=== PATIENT | male | born 1975 | race African-American/Black ===

== ENCOUNTER 2020-07-06 10:58 | Inpatient (IN) | payer OTHER, SELFPAY ==
[2020-07-06 11:19] VITALS: BP 110/69; BP 130/86; PULSE 60; RESP 16; TEMP 36.7; O2SAT 96; BMI 32.8
--- NOTE | 2020-07-06 12:01 | ED.PSYCH ---
HPI - Psych General Chief Complaint: Psychiatric Symptoms Stated Complaint: SI WITH A PLAN, VOLUNTARY,CALM AND COOPERATIVE Time Seen by Provider: 07/06/20 11:30 Source: EMS Mode of arrival: EMS Limitations: no limitations History of Present Illness HPI Narrative: Per EMS the patient has been making suicidal statements, recent dc [place] [facility] [place]. Patient denies Si/HI. Is feeling depressed but not worsened from baseline. Has upcoming appt 07/13 with a psychiatrist. No therapist, Takes seroquel at nighttime for sleep. Pt denies substance use. Denies physical complaints. MD complaint: feels depressed Onset (ago): day(s) Duration: constant History of same: Yes Relieving factors: none Exacerbating factors: none Associated symptoms: denies other symptoms Treatments prior to arrival: none Related Data Allergies Allergy/AdvReac Type Severity Reaction Status Date / Time No Known Allergies Allergy Verified 07/06/20 11:18 [No Known Allergies*] none Allergy Unknown Unknown Uncoded 07/06/20 11:18 Review of Systems Review of Systems: Yes all other systems are reviewed and are negative Constitutional: Constitutional: Reports no additional constitutional complaints, Denies body ache(s), Denies chills, Denies fever(s), Denies headache(s) and Denies weakness Eyes: Eyes: Reports no additional eye complaints and Denies change in vision ENT: Reports system reviewed and no additional complaints, except as documented, Denies dizziness, Denies headache(s), Denies nasal congestion, Denies nasal discharge and Denies neck pain Cardiovascular: Cardiovascular: Reports no additional cardiovascular complaints, Denies chest pain, Denies leg edema and Denies dyspnea Respiratory: Respiratory: Reports no additional respiratory complaints, Denies cough and Denies dyspnea Gastrointestinal: Gastrointestinal: Reports no additional gastrointestinal complaints, Denies abdominal pain, Denies diarrhea, Denies nausea and Denies vomiting Genitourinary: Genitourinary: Denies urinary incontinence Musculoskeletal: Musculoskeletal: Reports no additional musculoskeletal complaints, Denies back pain, Denies arthralgias, Denies joint swelling, Denies neck pain, Denies numbness and Denies tingling Integumentary/Breasts: Skin/Breast: Reports system reviewed and no additional complaints, except as docu and Denies rash Neurologic: Reports system reviewed and no additional complaints, except as documented, Denies Abnormal speech present, Denies dizziness, Denies headache(s), Denies numbness, Denies tingling and Denies weakness Psychiatric: Psychiatric: Denies anxiety, Reports depression, Denies auditory hallucinations, Denies visual hallucinations, Denies hallucinations, Denies homicidal ideation and Denies suicidal ideation [facility] Past Medical History Attestation statement: The following information was validated with the patient. Source: obtained from family and nursing notes reviewed Medical History Difficulty sleeping Suicide attempt Social History Social History Advance Directives: No Advance Directives Information Provided: Yes Physical Exam Vital Signs: Vital Signs: Last Vital Signs Temp 97.6 F 07/06/20 15:10 Pulse 64 07/06/20 15:10 Resp 18 07/06/20 15:10 BP 109/61 07/06/20 15:10 Pulse Ox 97 07/06/20 15:10 Body Mass Index 32.8 Const: General: cooperative, healthy appearing, comfortable and no acute distress Orientation/consciousness: patient oriented x3 Limitations: no limitations HENMT: Head: Yes normal to inspection Ears: hearing grossly normal bilaterally General nose exam: Normal external nose present Face and sinus: Yes normal facial exam Mouth: Normal oral and palatal mucosa present Throat: Yes posterior oropharynx normal Eyes: General: appearance normal, both eyes and all related structures Pupils: Equal, round and reactive pupils present Neck: Neck: Yes normal visual inspection Chest: Chest palpation & inspection: normal inspection of the chest Resp: Effort & Inspection: normal respiratory effort Auscultation: clear to auscultation bilaterally Cardio: Rate: regular rate Rhythm: regular rhythm Peripheral pulses: Peripheral pulses 2+ throughout GI: Inspection: Yes normal to inspection Palpation (GI): Soft to palpation and nontender Auscultation: normal bowel sounds Back/Spine/Pelvis: Thoracic/Lumbar Spine: thoracic and lumbar spine normal to inspection Skin: General skin exam: no rashes or lesions noted Neuro: General: patient oriented x3, no focal motor deficits and normal sensation to monofilament Cranial nerves: Yes Equal, round and reactive pupils present Cognition (Neuro): normal cognition Speech: No Abnormal speech present Gait exam (Neuro): Normal gait present Motor exam (neuro): 5/5 motor strength present throughout Extrem: General: Yes normal to inspection Course Course Course Narrative: Pt denies SI, HI, hallucinations. C/o some depression Related to his father's . Very vague historian and not providing much information. Most of the patients history described by the . Call out to her to discuss. 1230- Called and spoke to patient's with steward/stewardess tourist class. She does know he was released from [facility] 3 days ago after attempting to kill himself with bleach by drinking it. She tells me so with tonight he was released he bought some fabuloso nd drink several sips of this. She is unsure if he drink more. She tells me that night he was also drinking alcohol and using cocaine. She does admit he has been drinking Carla since being released daily and using cocaine daily. She tells me he has been telling her that he is feeling suicidal every morning and that he wants to jump off the roof of the house to kill himself. Plan to obtain records from [facility]. Check labs, EKG and drug screen. Obtain BHN consult. 1600-Labs reviewed. Drug screen reviewed. Section 12 signed and placed on chart. No concern for acute ingestion or trauma today. Plan for BHN evaluation. 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 Placed in chart, 1700-Sign out to Saleem GARY pending eval. MDM - Psych Restraints Face to Face Assessment: Face to Face Assessment: Current Situation: After assessment of the patient, a review of the pertinent medical record and a discussion with nursing staff, I feel the patient requires a restrain intervention. Reaction To: [] Medical Condition: [] Behavioral State: [] Continued Need: [] Medical Records Attestation: I reviewed the patient's medical records. Lab Data Attestation: I reviewed the patient's lab results. Result diagrams: 07/06/20 13:05 07/06/20 13:05 Labs: Lab Results 07/06/20 07/06/20 07/06/20 Range/Units 13:05 13:05 13:05 WBC 10.7 (4.8-10.8) X10*3/uL RBC 4.74 (4.60-5.80) X10*6/uL Hgb 14.4 (14.0-18.0) g/dl Hct 43.0 (42-52) % MCV 90.7 (80-98) fL MCH 30.4 (27.0-33.0) pg MCHC 33.5 (31.0-36.0) g/dl RDW 13.4 (11.0-16.0) % Plt Count 264 (160-400) X10*3/uL MPV 9.0 L (9.4-12.4) fL Immature Gran % (Auto) 0.2 (0.0-0.4) % Neut % (Auto) 56.1 (45-73) % Lymph % (Auto) 22.7 (20-40) % [place] % (Auto) 10.6 (2-11) % Eos % (Auto) 9.7 H (0-4) % Baso % (Auto) 0.7 (0-2) % Lymph # (Auto) 2.4 (1.2-4.9) X10*3/uL [place] # (Auto) 1.1 (0.1-1.2) X10*3/uL Eos # (Auto) 1.0 H (0.0-0.4) X10*3/uL Baso # (Auto) 0.1 (0.0-0.2) X10*3/uL Abs Immat Gran (auto) 0.02 (0.00-0.03) X10*3/uL Absolute Neuts (auto) 6.0 (2.0-8.3) X10*3/uL Absolute Nucleated RBC 0.000 (0.0-0.012) X10*3/uL Nucleated RBC % (auto) 0.0 (0.0-0.2) /100WBC Sodium 139 (135-145) mmol/L Potassium 3.8 (3.3-5.1) mmol/l Chloride 107 (96-108) mmol/L Carbon Dioxide 25 (22-29) mmol/L Anion Gap 11 L (12-20) BUN 13 (9-16) mg/dL Creatinine 1.27 (0.5-1.4) mg/dL Estim Creat Clear Calc 95.0 Estimated GFR > 60 Random Glucose 112 (60-115) mg/dL Calcium 8.4 (8.4-10.2) mg/dL Magnesium 2.2 (1.6-2.6) mg/dL Total Bilirubin 0.5 (0.0-1.0) mg/dL Direct Bilirubin 0.2 (0.0-0.5) mg/dL AST 14 (5-37) U/L ALT 12 (0-40) U/L Alkaline Phosphatase 54 (39-117) U/L Total Protein 6.4 L (6.5-8.0) g/dL Albumin 3.8 (3.5-5.0) g/dL Urine Color Urine Appearance Urine pH (5.0-8.0) Ur Specific [place] (1.005-1.025) Urine Protein (NEG-TRACE) MG/DL Urine Glucose (UA) (NEG) MG/DL Urine Ketones (NEG) MG/DL Urine Blood (NEG) Urine Nitrite (NEG) Ur Leukocyte Esterase (NEG) Urine RBC (0) /HPF Urine WBC (0-4) /HPF Ur Squamous Epith Cells /LPF Urine Bacteria /LPF Hyaline Casts /LPF Salicylates < 5.0 L (15-30) mg/dL Urine Opiates Screen (Not Detect) Acetaminophen < 1 (<30) mcg/mL Ur Barbiturates Screen (Not Detect) Ur Phencyclidine Scrn (Not Detect) Ur Amphetamines Screen (Not Detect) U Benzodiazepines Scrn (Not Detect) Urine Cocaine Screen (Not Detect) U Marijuana (THC) Screen (Not Detect) Ethyl Alcohol mg/dL 07/06/20 07/06/20 07/06/20 Range/Units 13:05 15:06 15:06 WBC (4.8-10.8) X10*3/uL RBC (4.60-5.80) X10*6/uL Hgb (14.0-18.0) g/dl Hct (42-52) % MCV (80-98) fL MCH (27.0-33.0) pg MCHC (31.0-36.0) g/dl RDW (11.0-16.0) % Plt Count (160-400) X10*3/uL MPV (9.4-12.4) fL Immature Gran % (Auto) (0.0-0.4) % Neut % (Auto) (45-73) % Lymph % (Auto) (20-40) % [place] % (Auto) (2-11) % Eos % (Auto) (0-4) % Baso % (Auto) (0-2) % Lymph # (Auto) (1.2-4.9) X10*3/uL [place] # (Auto) (0.1-1.2) X10*3/uL Eos # (Auto) (0.0-0.4) X10*3/uL Baso # (Auto) (0.0-0.2) X10*3/uL Abs Immat Gran (auto) (0.00-0.03) X10*3/uL Absolute Neuts (auto) (2.0-8.3) X10*3/uL Absolute Nucleated RBC (0.0-0.012) X10*3/uL Nucleated RBC % (auto) (0.0-0.2) /100WBC Sodium (135-145) mmol/L Potassium (3.3-5.1) mmol/l Chloride (96-108) mmol/L Carbon Dioxide (22-29) mmol/L Anion Gap (12-20) BUN (9-16) mg/dL Creatinine (0.5-1.4) mg/dL Estim Creat Clear Calc Estimated GFR Random Glucose (60-115) mg/dL Calcium (8.4-10.2) mg/dL Magnesium (1.6-2.6) mg/dL Total Bilirubin (0.0-1.0) mg/dL Direct Bilirubin (0.0-0.5) mg/dL AST (5-37) U/L ALT (0-40) U/L Alkaline Phosphatase (39-117) U/L Total Protein (6.5-8.0) g/dL Albumin (3.5-5.0) g/dL Urine Color YELLOW Urine Appearance CLEAR Urine pH 6.0 (5.0-8.0) Ur Specific [place] >= 1.030 H (1.005-1.025) Urine Protein NEG (NEG-TRACE) MG/DL Urine Glucose (UA) NEG (NEG) MG/DL Urine Ketones 5 (NEG) MG/DL Urine Blood NEG (NEG) Urine Nitrite NEG (NEG) Ur Leukocyte Esterase TRACE H (NEG) Urine RBC 0-2 (0) /HPF Urine WBC 5-9 H (0-4) /HPF Ur Squamous Epith Cells 1+ /LPF Urine Bacteria NONE /LPF Hyaline Casts 0-2 /LPF Salicylates (15-30) mg/dL Urine Opiates Screen Not Detected (Not Detect) Acetaminophen (<30) mcg/mL Ur Barbiturates Screen Not Detected (Not Detect) Ur Phencyclidine Scrn Not Detected (Not Detect) Ur Amphetamines Screen Not Detected (Not Detect) U Benzodiazepines Scrn POSITIVE H (Not Detect) Urine Cocaine Screen POSITIVE H (Not Detect) U Marijuana (THC) Screen Not Detected (Not Detect) Ethyl Alcohol < 10 mg/dL ECG Data Attestation: I personally reviewed and interpreted this ECG as follows: ECG interpretation date: 07/06/20 ECG interpretation time: 12:42 Interpretation: sinus bradycardia with a rate of 46, normal KS, normal QRS, QTC mildly prolonged at 447. Uncganged from previous Discharge Plan Discharge Clinical Impression: Polysubstance abuse, Suicidal ideation, Depression
--- NOTE | 2020-07-06 12:20 | ECG_ITS ---
Test Reason : PYCH Blood Pressure : / mmHG Vent. Rate : 056 BPM Atrial Rate : 056 BPM P-R Int : 192 ms QRS Dur : 096 ms QT Int : 464 ms P-R-T Axes : 023 072 077 degrees QTc Int : 447 ms Sinus bradycardia with Sinus Arrhythmia Intra-ventricular conduction delay Nonspecific T wave abnormality Abnormal ECG When compared with ECG of 25-MAR-2020 18:05, No significant change was found Referred By: Christine Beyer Electronically Signed By:MARY LONDON MD
[2020-07-06 13:08] LABS: MANUAL DIFF FLAG NO
[2020-07-06 13:14] LABS: Basophils Absolute Auto 0.1 X10*3/uL (0.0-0.2); Basophils Percent Auto 0.7 % (0-2); Eosinophils Percent Auto 9.7 % (0-4); Hemoglobin 14.4 g/dl (14.0-18.0); Imm Gran Abs Auto 0.02 X10*3/uL (0.00-0.03); Imm Gran Pct Auto 0.2 % (0.0-0.4); Lymphocytes Absolute Auto 2.4 X10*3/uL (1.2-4.9); Lymphocytes Percent Auto 22.7 % (20-40); Mean Corpuscular HGB Conc 33.5 g/dl (31.0-36.0); Mean Corpuscular Hemoglobin 30.4 pg (27.0-33.0); Mean Corpuscular Volume 90.7 fL (80-98); Monocytes Absolute Auto 1.1 X10*3/uL (0.1-1.2); Monocytes Percent Auto 10.6 % (2-11); Neutrophils Percent Auto 56.1 % (45-73); Platelet Count 264 X10*3/uL (160-400); Red Blood Count 4.74 X10*6/uL (4.60-5.80); Red Cell Distribution Width 13.4 % (11.0-16.0); White Blood Count 10.7 X10*3/uL (4.8-10.8)
[2020-07-06 13:41] LABS: Ethanol < 10 mg/dL
[2020-07-06 13:45] LABS: Acetaminophen LAB < 1 mcg/mL (<30); Alanine Aminotransferase 12 U/L (0-40); Albumin Level 3.8 g/dL (3.5-5.0); Alkaline Phosphatase 54 U/L (39-117); Anion Gap 11 (12-20); Aspartate Amino Transferase 14 U/L (5-37); Bilirubin Direct 0.2 mg/dL (0.0-0.5); Bilirubin Total 0.5 mg/dL (0.0-1.0); Blood Urea Nitrogen 13 mg/dL (9-16); Calcium 8.4 mg/dL (8.4-10.2); Carbon Dioxide 25 mmol/L (22-29); Chloride 107 mmol/L (96-108); Estimated Glomerular Filt Rate > 60; Glucose Random 112 mg/dL (60-115); Magnesium 2.2 mg/dL (1.6-2.6); Potassium 3.8 mmol/l (3.3-5.1); Salicylate < 5.0 mg/dL (15-30); Sodium 139 mmol/L (135-145); Total Protein 6.4 g/dL (6.5-8.0)
[2020-07-06] MEDS: LORazepam 1 MG TABLET 2 MG PO (14:52)
--- NOTE | 2020-07-06 14:53 | PC.NURSE ---
lat entry aprox 15 mins ago pt was upset on phone, slamming the table. was descalated verbally and now willing to take meds. pt wanted to leave [facility] and was told he couldn't
[2020-07-06 15:10] VITALS: BP 109/61; PULSE 64; RESP 18; TEMP 36.4; O2SAT 97
[2020-07-06 15:13] LABS: Glucose Urine UA NEG (NEG); Leukocyte Esterase Urine TRACE (NEG); Nitrite Urine NEG (NEG); Specific Gravity - Urine >= 1.030 (1.005-1.025); Urine Blood NEG (NEG); Urine Ketones 5 MG/DL (NEG); Urine Protein NEG (NEG-TRACE)
[2020-07-06 15:14] LABS: Appearance Urine CLEAR; Color Urine YELLOW
[2020-07-06 15:21] LABS: Hyaline Casts Urine 0-2 /LPF; RBC Urine 0-2 /HPF (0); Squamous Epithelial Cell Urine 1+ /LPF
[2020-07-06 15:39] LABS: Amphetamine Screen Urine Not Detected (Not Detect); Barbiturates, Urine Not Detected (Not Detect); Benzodiazepines Screen Urine POSITIVE (Not Detect); Cannabinoid Screen Urine Not Detected (Not Detect); Cocaine Screen Urine POSITIVE (Not Detect); Opiate Screen Urine Not Detected (Not Detect); Phencyclidine Screen Urine Not Detected (Not Detect)
--- NOTE | 2020-07-06 15:40 | PC.NURSE ---
sleeping. skin pwd. no resp depression. sitter remains outside of curtain.
--- NOTE | 2020-07-06 16:58 | PC.NURSE ---
continues to sleep
--- NOTE | 2020-07-06 16:58 | PC.NURSE ---
's number: [phone]
--- NOTE | 2020-07-06 17:19 | PC.NURSE ---
[facility] has fax. they have no idea when crisis eval with occur. may be on overnight.
--- NOTE | 2020-07-06 18:53 | PC.NURSE ---
[facility] present in ed to interview patient.
[2020-07-06 19:02] VITALS: BP 111/59; PULSE 61; RESP 18; O2SAT 96
--- NOTE | 2020-07-06 19:05 | PC.NURSE ---
rn to rn with kezia in the pod. pt woken then ambulatory to pod w/o diff. security present.
[2020-07-06 23:47] VITALS: RESP 18
[2020-07-07 06:00] VITALS: BP 122/71; PULSE 60; RESP 18; TEMP 36.4; O2SAT 96
--- NOTE | 2020-07-07 07:05 | PC.NURSE ---
Report recieved. Pt currently resting, denies complaints. Pt is inpatient bedsearch.
[2020-07-07 09:03] VITALS: RESP 18
[2020-07-07 10:20] LABS: COVID-19 Test Negative (Negative)
[2020-07-07] MEDS: Omeprazole 40 MG CAPSULE.DR PO (10:53)
[2020-07-07] MEDS: polyethylene glycoL 3350 17 GM POWD.PACK PO (10:53)
[2020-07-07] MEDS: hydrOXYzine HCL 50 MG TABLET PO (12:08)
--- NOTE | 2020-07-07 19:24 | PC.NURSE ---
Report received. PT pacing around the unit. Waiting to be transferred to .
[2020-07-07] MEDS: LORazepam 1 MG TABLET PO (21:33)
[2020-07-07] MEDS: hydrOXYzine HCL 25 MG TABLET PO (22:05)
--- NOTE | 2020-07-07 23:03 | PC.NURSE ---
PT SIGNED A 3-DAY NOTICE 07/07/2020, WILL BE UP ON 07/13
--- NOTE | 2020-07-07 23:04 | PC.ADMIT ---
Pt is a 45 year old male who is known to . Recently, discharged from [facility] 3 days ago. He was brought into [facility] due to concerns from his daughter about his safety and reported that he stated he wanted to jump from a balcony. Although reported SI he denies that he has any SI/HI/AH/VH. Patients ex reported that he had drank clorox and had been taking prescribed medications that was not his. Pt tested positive for cocaine and benzodiazepines. Pt stated I am fine, I don't know what it was I drank one night a couple of beers and other stuff and then next thing I know I have people banging on my door and I'm here....it was really weird . Has medical problems: Brugada syndrome, cardiac arrest, asthma, chronic pain and bowel issues noted. Pt uses humor as a coping skill and seems to be covering up how he is truly feeling. When asking about suicidally he would pause and look at the ground instead of making usual eye-contact- responses would be short No I'm good. . Pt is adamant about leaving. Pt reported that he has not been on any medications in a long time however, he just came from [facility]. Medications were ordered and obtained by Marisela Caballero. Concerns with certain medications that may affect heart. Signed a 3 day notice 07/07/2020, up on 07/13. Placed on 15 minute checks.
--- NOTE | 2020-07-08 | ECG_ITS ---
Test Reason : CHECK QTC Blood Pressure : / mmHG Vent. Rate : 064 BPM Atrial Rate : 064 BPM P-R Int : 172 ms QRS Dur : 112 ms QT Int : 398 ms P-R-T Axes : 029 074 070 degrees QTc Int : 410 ms Normal sinus rhythm Normal ECG When compared with ECG of 06-JUL-2020 12:42, Nonspecific ST and T wave abnormality has improved Referred By: Buck Travis Electronically Signed By:MARY LONDON MD
--- NOTE | 2020-07-08 04:26 | HO.PSYADMNOT ---
HPI Chief Complaint: Bi Polar Sources of Information: patient interviewed, chart reviewed and crisis/core team assessment reviewed Additional Sources of Information: Past [facility] [place] HPI Narrative: Pt brought to [facility] ED after his daughter called stating he was suicidal and drinking cleaning fluids after DC from [facility] 3 days ago. Threatened to jump off height. Recent DC from [facility] after Clorox ingestion. Pt known to [facility] w X similar presentations ppted by relationship conflict and impulsive DSH. Hx impiulsivity and substance use mainly Cocaine. Hx PTSD related to Childhood ACEs.. Denies SI today. Says was mad at him and prompted D in CT to call surgical instrument mechanic. I was sleeping when they knocked . Past Psychiatric History: X hospitalizations: [facility]. States starting program at [facility] Quality of Life Medical Evaluation Reviewed: Yes No CP/SOB [facility] Medical History Difficulty sleeping Suicide attempt Family History: None Social History: , frequent friction, upset bc he was talking to a girl , lives in own apt. Not employed Substance History: Cocaine use with Hx suspected CP and ?? Brugada in past but was r/o by Dr Pak Trauma History: Childhood Jennifer : physical/emotional Diagnostics Vital Signs (24Hr): Vital Signs - 24 hr 07/07/20 06:00 07/07/20 09:03 Temperature 97.5 F Pulse Rate 60 Respiratory Rate 18 18 Blood Pressure 122/71 Pulse Oximetry 96 Body Mass Index 32.8 Labs Results: 07/06/20 13:05 07/08/20 07:24 Labs: Laboratory Results - last 48 hr 07/06/20 07/06/20 07/06/20 13:05 13:05 13:05 WBC 10.7 RBC 4.74 Hgb 14.4 Hct 43.0 MCV 90.7 MCH 30.4 MCHC 33.5 RDW 13.4 Plt Count 264 MPV 9.0 L Immature Gran % (Auto) 0.2 Neut % (Auto) 56.1 Lymph % (Auto) 22.7 Williams % (Auto) 10.6 Eos % (Auto) 9.7 H Baso % (Auto) 0.7 Lymph # (Auto) 2.4 Williams # (Auto) 1.1 Eos # (Auto) 1.0 H Baso # (Auto) 0.1 Abs Immat Gran (auto) 0.02 Absolute Neuts (auto) 6.0 Absolute Nucleated RBC 0.000 Nucleated RBC % (auto) 0.0 Sodium 139 Potassium 3.8 Chloride 107 Carbon Dioxide 25 Anion Gap 11 L BUN 13 Creatinine 1.27 Estim Creat Clear Calc 95.0 Estimated GFR > 60 Random Glucose 112 Calcium 8.4 Magnesium 2.2 Total Bilirubin 0.5 Direct Bilirubin 0.2 AST 14 ALT 12 Alkaline Phosphatase 54 Total Protein 6.4 L Albumin 3.8 Urine Color Urine Appearance Urine pH Ur Specific [place] Urine Protein Urine Glucose (UA) Urine Ketones Urine Blood Urine Nitrite Ur Leukocyte Esterase Urine RBC Urine WBC Ur Squamous Epith Cells Urine Bacteria Hyaline Casts Salicylates < 5.0 L Urine Opiates Screen Acetaminophen < 1 Ur Barbiturates Screen Ur Phencyclidine Scrn Ur Amphetamines Screen U Benzodiazepines Scrn Urine Cocaine Screen U Marijuana (THC) Screen Ethyl Alcohol COVID-19 (MAN) COVID-19 BriefCam 07/06/20 07/06/20 07/06/20 13:05 15:06 15:06 WBC RBC Hgb Hct MCV MCH MCHC RDW Plt Count MPV Immature Gran % (Auto) Neut % (Auto) Lymph % (Auto) Williams % (Auto) Eos % (Auto) Baso % (Auto) Lymph # (Auto) Williams # (Auto) Eos # (Auto) Baso # (Auto) Abs Immat Gran (auto) Absolute Neuts (auto) Absolute Nucleated RBC Nucleated RBC % (auto) Sodium Potassium Chloride Carbon Dioxide Anion Gap BUN Creatinine Estim Creat Clear Calc Estimated GFR Random Glucose Calcium Magnesium Total Bilirubin Direct Bilirubin AST ALT Alkaline Phosphatase Total Protein Albumin Urine Color YELLOW Urine Appearance CLEAR Urine pH 6.0 Ur Specific [place] >= 1.030 H Urine Protein NEG Urine Glucose (UA) NEG Urine Ketones 5 Urine Blood NEG Urine Nitrite NEG Ur Leukocyte Esterase TRACE H Urine RBC 0-2 Urine WBC 5-9 H Ur Squamous Epith Cells 1+ Urine Bacteria NONE Hyaline Casts 0-2 Salicylates Urine Opiates Screen Not Detected Acetaminophen Ur Barbiturates Screen Not Detected Ur Phencyclidine Scrn Not Detected Ur Amphetamines Screen Not Detected U Benzodiazepines Scrn POSITIVE H Urine Cocaine Screen POSITIVE H U Marijuana (THC) Screen Not Detected Ethyl Alcohol < 10 COVID-19 (MAN) COVID-BookBub 07/07/20 09:36 WBC RBC Hgb Hct MCV MCH MCHC RDW Plt Count MPV Immature Gran % (Auto) Neut % (Auto) Lymph % (Auto) Williams % (Auto) Eos % (Auto) Baso % (Auto) Lymph # (Auto) Williams # (Auto) Eos # (Auto) Baso # (Auto) Abs Immat Gran (auto) Absolute Neuts (auto) Absolute Nucleated RBC Nucleated RBC % (auto) Sodium Potassium Chloride Carbon Dioxide Anion Gap BUN Creatinine Estim Creat Clear Calc Estimated GFR Random Glucose Calcium Magnesium Total Bilirubin Direct Bilirubin AST ALT Alkaline Phosphatase Total Protein Albumin Urine Color Urine Appearance Urine pH Ur Specific [place] Urine Protein Urine Glucose (UA) Urine Ketones Urine Blood Urine Nitrite Ur Leukocyte Esterase Urine RBC Urine WBC Ur Squamous Epith Cells Urine Bacteria Hyaline Casts Salicylates Urine Opiates Screen Acetaminophen Ur Barbiturates Screen Ur Phencyclidine Scrn Ur Amphetamines Screen U Benzodiazepines Scrn Urine Cocaine Screen U Marijuana (THC) Screen Ethyl Alcohol COVID-19 (MAN) Negative COVID-19 Clin Com See Note Meds/Allergies Meds Home Medications Medication Instructions Recorded Confirmed Type hydroxyzine HCl [Atarax] 50 mg PO TID PRN 07/08/20 07/08/20 History pantoprazole 20 mg PO DAILY 07/08/20 07/08/20 History polyethylene glycol 3350 8.5 g PO DAILY PRN 07/08/20 07/08/20 History quetiapine [Seroquel] 50 mg PO DAILY PRN 07/08/20 07/08/20 History Allergies Allergies Allergy/AdvReac Type Severity Reaction Status Date / Time No Known Allergies Allergy Verified 07/06/20 11:18 [No Known Allergies*] Mental Status Exam Mental Status Exam Patient Appearance: Well Grooomed Patient Orientation: Person, Place, Time and Situation Level of Consciousness: Awake Patient Behavior: Appropriate Mood Description: Calm Affect Description: Calm Patient Cognition Impaired: No Ability to Follow Directions: Excellent Speech Pattern: Clear Hallucinations: None Delusions: Not Present Thought Process: Intact Thought Content: positive for Intact Depressive Symptoms: Thoughts of /Suicide (denies) Judgement: Poor Assessment & Plan Assessment & Plan (1) Depression: Status: Acute Code(s): F32.9 - Major depressive disorder, single episode, unspecified (2) Cocaine use disorder, severe, dependence: Status: Acute Code(s): F14.20 - Cocaine dependence, uncomplicated Patient educated on: diagnosis, medication risk/benefits and substance abuse Informed Consent: understands Reason for continued inpatient stay Substantial Risk for: harm to self
[2020-07-08 08:10] LABS: Alanine Aminotransferase 12 U/L (0-40); Alkaline Phosphatase 58 U/L (39-117); Anion Gap 11 (12-20); Aspartate Amino Transferase 13 U/L (5-37); Bilirubin Total 0.3 mg/dL (0.0-1.0); Blood Urea Nitrogen 15 mg/dL (9-16); Carbon Dioxide 29 mmol/L (22-29); Chloride 103 mmol/L (96-108); Creatinine Clr Calc Pharmacy 94.3; Estimated Glomerular Filt Rate > 60; Glucose Fasting 92 mg/dL (60-99); Potassium 4.2 mmol/l (3.3-5.1); Sodium 139 mmol/L (135-145); Total Protein 6.9 g/dL (6.5-8.0)
[2020-07-08 08:15] VITALS: BP 123/66; PULSE 61; RESP 14; TEMP 36.4; O2SAT 97
[2020-07-08] MEDS: Omeprazole 20 MG CAPSULE.DR PO (09:03)
[2020-07-08] MEDS: Nicotine 14 MG PATCH.TD24 TRANSDERMA (09:03)
[2020-07-08] MEDS: Milk of Magnesia 30 ML ORAL.SUSP PO (09:04)
[2020-07-08 09:48] LABS: Calcium 9.1 mg/dL (8.4-10.2)
[2020-07-08 12:00] VITALS: BP 163/79; PULSE 66
[2020-07-08 18:58] VITALS: BP 148/94; PULSE 70; TEMP 36.2
[2020-07-08] MEDS: polyethylene glycoL 3350 17 GM POWD.PACK PO ×2 (20:09)
[2020-07-08] MEDS: Docusate Sodium 100 MG CAPSULE PO ×2 (20:09→20:10)
[2020-07-08] MEDS: LORazepam 1 MG TABLET PO (20:10)
[2020-07-08] MEDS: traZODone HCL 25 MG HALFTAB PO (20:10)
[2020-07-09] MEDS: hydrOXYzine HCL 25 MG TABLET PO (02:36)
--- NOTE | 2020-07-09 07:28 | HO.PSYCHPN ---
Subjective Subjective Reason For Visit: Bi Polar Review of Systems Constitutional: Denies headache(s) and Denies weakness Denies dizziness and Denies headache(s) Musculoskeletal: Denies numbness and Denies tingling Reports system reviewed and no additional complaints, except as documented, Denies Abnormal speech present, Denies dizziness, Denies headache(s), Denies numbness, Denies tingling and Denies weakness Diagnostics Vital Signs (24Hr): Vital Signs - 24 hr 07/08/20 08:15 07/08/20 12:00 07/08/20 18:58 Temperature 97.6 F 97.2 F Pulse Rate 61 66 70 Respiratory Rate 14 Blood Pressure 123/66 163/79 H 148/94 H Pulse Oximetry 97 Body Mass Index 32.8 Labs Results: 07/06/20 13:05 07/08/20 07:24 Labs: Laboratory Results - last 48 hr 07/07/20 07/08/20 09:36 07:24 Sodium 139 Potassium 4.2 Chloride 103 Carbon Dioxide 29 Anion Gap 11 L BUN 15 Creatinine 1.28 Estim Creat Clear Calc 94.3 Estimated GFR > 60 Fasting Glucose 92 Calcium 9.1 D Total Bilirubin 0.3 AST 13 ALT 12 Alkaline Phosphatase 58 Total Protein 6.9 Albumin 4.0 COVID-19 (MAN) Negative COVID-19 Clin Com See Note Medications Medications Current Medications Generic Name Dose Route Start Last Admin Trade Name Freq PRN Reason Stop Dose Admin Acetaminophen 650 mg 07/07/20 20:27 Acetaminophen 325 Mg Tablet PO Q6H PRN Headache/Pain Mild Scale (1-3) Docusate Sodium 100 mg 07/08/20 17:40 07/08/20 20:10 Docusate Sodium 100 Mg Capsule PO 100 mg BID RADHA Administration Hydroxyzine HCl 25 mg 07/07/20 21:47 07/09/20 02:36 Hydroxyzine Hcl 25 Mg Tablet PO 25 mg BEDTIME PRN Administration Anxiety Lorazepam 1 mg 07/07/20 20:27 07/08/20 20:10 Lorazepam 1 Mg Tablet PO 1 mg TID PRN Administration anxiety/restlessness Magnesium Hydroxide 30 ml 07/07/20 20:27 07/08/20 09:04 Milk Of Magnesia 30 Ml Oral.Susp PO 30 ml DAILY PRN Administration Constipation Nicotine 14 mg 07/08/20 09:00 07/08/20 09:03 Nicotine 14 Mg Patch.Td24 TRANSDERMA 14 mg DAILY RADHA Administration Nicotine Polacrilex 4 mg 07/07/20 20:27 Nicotine Polacrilex 2 Mg Gum BUCCAL Q2H PRN Nicotine Cravings Omeprazole 20 mg 07/08/20 06:30 07/08/20 09:03 Omeprazole 20 Mg Capsule.Dr PO 20 mg DAILY@0630 RADHA Administration Polyethylene Glycol 17 gm 07/08/20 17:40 07/08/20 20:09 Polyethylene Glycol 3350 17 Gm Powd.Pack PO 17 gm DAILY RADHA Administration Quetiapine Fumarate 50 mg 07/08/20 11:22 Quetiapine Fumarate 50 Mg Tablet PO DAILY PRN Anxiety Trazodone HCl 25 mg 07/07/20 20:27 07/08/20 20:10 Trazodone Hcl 25 Mg Halftab PO 25 mg BEDTIME PRN Administration Insomnia Allergies Allergies Allergy/AdvReac Type Severity Reaction Status Date / Time No Known Allergies Allergy Verified 07/06/20 11:18 [No Known Allergies*] Assessment & Plan Greater than 50% of the session was spent on counseling and/or coordination of care
[2020-07-09] MEDS: Nicotine 14 MG PATCH.TD24 TRANSDERMA (09:22)
[2020-07-09] MEDS: polyethylene glycoL 3350 17 GM POWD.PACK PO (09:22)
[2020-07-09] MEDS: Docusate Sodium 100 MG CAPSULE PO (09:22)
[2020-07-09] MEDS: Omeprazole 20 MG CAPSULE.DR PO (09:22)
[2020-07-09 09:43] VITALS: BMI 32.5
[2020-07-09 09:46] VITALS: BP 118/71; PULSE 70; RESP 16; TEMP 36.7; O2SAT 98
--- NOTE | 2020-07-09 12:12 | PM.PSYDC ---
DS: Providers Provider Date of admission: 07/07/20 14:07 Primary care physician: Unknown Physician DS: Diagnosis Discharge Diagnosis (1) Depression: Status: Acute (2) Cocaine use disorder, severe, dependence: Status: Acute DS: Medications Discharge Medications Home Medications: Home Medications Medication Instructions Recorded Confirmed hydroxyzine HCl [Atarax] 50 mg PO TID PRN 07/08/20 07/08/20 pantoprazole 20 mg PO DAILY 07/08/20 07/08/20 polyethylene glycol 3350 8.5 g PO DAILY PRN 07/08/20 07/08/20 quetiapine [Seroquel] 50 mg PO DAILY PRN 07/08/20 07/08/20 Discharge Plan Discharge Anticipated Discharge Date/Time: 07/09/20 12:12 Patient Disposition: Home, Self-Care Referrals: DR. MIKKI ONEIL [Other] - 07/16/20 2:30 pm (Telehealth) Dr. Estrada (psychiatrist) [Other] - 08/04/20 9:20 am (Telehealth appointment) Romario Samaniego (therapist) [Other] - 07/18/20 12:00 pm (Telehealth appointment) Discharge Medications: New docusate sodium 100 mg Capsule 100 mg PO BID 30 Days Qty: 60 RF: 0 Continued hydroxyzine HCl 50 mg Tablet 50 mg PO TID PRN (Reason: Anxiety) 30 Days Qty: 45 RF: 0 pantoprazole 20 mg Tablet,Delayed Release (Dr/Ec) 20 mg PO DAILY 30 Days Qty: 30 RF: 0 quetiapine [Seroquel] 50 mg Tablet 50 mg PO DAILY PRN (Reason: Anxiety) 30 Days Qty: 30 RF: 0 polyethylene glycol 3350 8.5 gram Powder In Packet 8.5 g PO DAILY PRN (Reason: Constipation) 30 Days Qty: 330 RF: 0 Discharge Orders: Discharge Order (Routine); Ordered 07/09/20 Ordered By: Fabien Michael Diet: advance to usual diet Activity on Discharge: As tolerated Stand Alone Forms: Community Support Discharge Date/Time: 07/09/20 14:25 Visit Report Forms: Patient Portal Discharge page Care Plan Goals: Abstinence from drugs Less conflict with Health Concerns: cocaine use mood swings impulsivity Plan of Treatment: Cont meds Quality of LIFe Progra,m Data Data Completed and Pending Completed studies during hospitalization [Text1]: 07/06/20 07/06/20 07/06/20 13:05 13:05 13:05 WBC 10.7 RBC 4.74 Hgb 14.4 Hct 43.0 MCV 90.7 MCH 30.4 MCHC 33.5 RDW 13.4 Plt Count 264 MPV 9.0 L Immature Gran % (Auto) 0.2 Neut % (Auto) 56.1 Lymph % (Auto) 22.7 [place] % (Auto) 10.6 Eos % (Auto) 9.7 H Baso % (Auto) 0.7 Lymph # (Auto) 2.4 [place] # (Auto) 1.1 Eos # (Auto) 1.0 H Baso # (Auto) 0.1 Abs Immat Gran (auto) 0.02 Absolute Neuts (auto) 6.0 Absolute Nucleated RBC 0.000 Nucleated RBC % (auto) 0.0 Sodium 139 Potassium 3.8 Chloride 107 Carbon Dioxide 25 Anion Gap 11 L BUN 13 Creatinine 1.27 Estim Creat Clear Calc 95.0 Estimated GFR > 60 Random Glucose 112 Fasting Glucose Calcium 8.4 Magnesium 2.2 Total Bilirubin 0.5 Direct Bilirubin 0.2 AST 14 ALT 12 Alkaline Phosphatase 54 Total Protein 6.4 L Albumin 3.8 Urine Color Urine Appearance Urine pH Ur Specific [place] Urine Protein Urine Glucose (UA) Urine Ketones Urine Blood Urine Nitrite Ur Leukocyte Esterase Urine RBC Urine WBC Ur Squamous Epith Cells Urine Bacteria Hyaline Casts Salicylates < 5.0 L Urine Opiates Screen Acetaminophen < 1 Ur Barbiturates Screen Ur Phencyclidine Scrn Ur Amphetamines Screen U Benzodiazepines Scrn Urine Cocaine Screen U Marijuana (THC) Screen Ethyl Alcohol COVID-19 (MAN) COVID-19 Clin Com 07/06/20 07/06/20 07/06/20 13:05 15:06 15:06 WBC RBC Hgb Hct MCV MCH MCHC RDW Plt Count MPV Immature Gran % (Auto) Neut % (Auto) Lymph % (Auto) [place] % (Auto) Eos % (Auto) Baso % (Auto) Lymph # (Auto) [place] # (Auto) Eos # (Auto) Baso # (Auto) Abs Immat Gran (auto) Absolute Neuts (auto) Absolute Nucleated RBC Nucleated RBC % (auto) Sodium Potassium Chloride Carbon Dioxide Anion Gap BUN Creatinine Estim Creat Clear Calc Estimated GFR Random Glucose Fasting Glucose Calcium Magnesium Total Bilirubin Direct Bilirubin AST ALT Alkaline Phosphatase Total Protein Albumin Urine Color YELLOW Urine Appearance CLEAR Urine pH 6.0 Ur Specific [place] >= 1.030 H Urine Protein NEG Urine Glucose (UA) NEG Urine Ketones 5 Urine Blood NEG Urine Nitrite NEG Ur Leukocyte Esterase TRACE H Urine RBC 0-2 Urine WBC 5-9 H Ur Squamous Epith Cells 1+ Urine Bacteria NONE Hyaline Casts 0-2 Salicylates Urine Opiates Screen Not Detected Acetaminophen Ur Barbiturates Screen Not Detected Ur Phencyclidine Scrn Not Detected Ur Amphetamines Screen Not Detected U Benzodiazepines Scrn POSITIVE H Urine Cocaine Screen POSITIVE H U Marijuana (THC) Screen Not Detected Ethyl Alcohol < 10 COVID-19 (MAN) COVID-19 Crunchbutton 07/07/20 07/08/20 09:36 07:24 WBC RBC Hgb Hct MCV MCH MCHC RDW Plt Count MPV Immature Gran % (Auto) Neut % (Auto) Lymph % (Auto) [place] % (Auto) Eos % (Auto) Baso % (Auto) Lymph # (Auto) [place] # (Auto) Eos # (Auto) Baso # (Auto) Abs Immat Gran (auto) Absolute Neuts (auto) Absolute Nucleated RBC Nucleated RBC % (auto) Sodium 139 Potassium 4.2 Chloride 103 Carbon Dioxide 29 Anion Gap 11 L BUN 15 Creatinine 1.28 Estim Creat Clear Calc 94.3 Estimated GFR > 60 Random Glucose Fasting Glucose 92 Calcium 9.1 D Magnesium Total Bilirubin 0.3 Direct Bilirubin AST 13 ALT 12 Alkaline Phosphatase 58 Total Protein 6.9 Albumin 4.0 Urine Color Urine Appearance Urine pH Ur Specific [place] Urine Protein Urine Glucose (UA) Urine Ketones Urine Blood Urine Nitrite Ur Leukocyte Esterase Urine RBC Urine WBC Ur Squamous Epith Cells Urine Bacteria Hyaline Casts Salicylates Urine Opiates Screen Acetaminophen Ur Barbiturates Screen Ur Phencyclidine Scrn Ur Amphetamines Screen U Benzodiazepines Scrn Urine Cocaine Screen U Marijuana (THC) Screen Ethyl Alcohol COVID-19 (MAN) Negative COVID-19 Crunchbutton See Note 07/06/20 15:06 Urine clean catch - Clean Catch Midstream Urine Culture - Final No growth. DS: Summary Hospital Course Hospital Course: Pt brought to [facility] after his daughter called stating he was suicidal and drinking cleaning fluids after DC from [facility] 3 days ago. Threatened to jump off height. Recent DC from [facility] after Clorox ingestion. Pt known to [facility] w X similar presentations ppted by relationship conflict and impulsive DSH. Hx impiulsivity and substance use mainly Cocaine. Hx PTSD related to Childhood ACEs.. Denies SI today. Says was mad at him and prompted D in [place] to call systems designer. I was sleeping when they knocked . Past Psychiatric History: X hospitalizations: [facility]. States starting program at [facility] Quality of Life Medical Evaluation Reviewed: Yes No CP/SOB Hospital stay was uneventful. He stated was mad bc I was talking to a girl . Manner was non chalant, was not therapeutically engaged. Denied any psychiatric issues. Was counselled re Cocaine use in the context of ? cardiac history but seemed unconcerned. Wanted [facility] rapidly. Denies SI/HI at DC Time spent discussing smoking cessation with patient: more than 10 minutes Status at Discharge Functional status at discharge: independent ambulation Overall status at discharge: patient is back to baseline Time Spent with Patient Time attestation: Total time spent providing and/or coordinating discharge services: Time spent: Greater than 30 minutes
== END 2020-07-09 14:25 | disposition home or self-care (01) | DRG 754 ==
LOC: HO.ED 19:03 → HO.PM5 07-07 14:08
PROVIDERS: Clinical Nurse Specialist Psychiatric/Mental Health; Nurse Practitioner Family; Physician Assistant; Admitting Provider Psychiatry & Neurology Psychiatry; Emergency Provider Emergency Medicine; Visit Provider Psychiatry & Neurology Psychiatry
DX: F32.9 Major depressive disorder, single episode, unspecified (principal); R45.851 Suicidal ideations; F19.10 Other psychoactive substance abuse, uncomplicated; F17.210 Nicotine dependence, cigarettes, uncomplicated; Z91.5 Personal history of self-harm; Z71.6 Tobacco abuse counseling; Z20.828 Contact with and (suspected) exposure to other viral communicable diseases; Z79.899 Other long term (current) drug therapy
CPT/HCPCS: 36415; 80048; 80053; 80076; 80307; 80320; 81001; 83735; 85025; 87086; 87635; 93005; 99223; 99239; 99285; G0480

== ENCOUNTER 2020-08-03 14:48 | Inpatient (IN) | payer OTHER, SELFPAY ==
--- NOTE | 2020-08-03 15:04 | ECG_ITS ---
Test Reason : OVERDOSE Blood Pressure : / mmHG Vent. Rate : 088 BPM Atrial Rate : 088 BPM P-R Int : 158 ms QRS Dur : 100 ms QT Int : 408 ms P-R-T Axes : 049 041 058 degrees QTc Int : 493 ms Normal sinus rhythm Brugada pattern Prolonged QT Abnormal ECG No previous ECGs available Referred By: Bandar Fernandez Electronically Signed By:OSCAR CARDENAS
--- NOTE | 2020-08-03 15:05 | ED.OVERDOSE ---
HPI - Overdose General Chief Complaint: Overdose Stated Complaint: OVERDOSE Time Seen by Provider: 08/03/20 15:03 Source: patient and EMS Mode of arrival: EMS Limitations: altered mental status History of Present Illness complaint: intentional overdose Time: 13:45 Timing confirmed by: other Intent: unwilling to say Context: Intentional Overdose: other Context: Accidental Overdose: uncertain what happened Associated symptoms: depression Treatments Prior to Arrival: oxygen Related Data Previous Rx's Medication Instructions Recorded docusate sodium 100 mg PO BID 30 Days #60 cap 07/09/20 hydroxyzine HCl 50 mg PO TID PRN 30 Days #45 tab 07/09/20 pantoprazole 20 mg PO DAILY 30 Days #30 tab 07/09/20 polyethylene glycol 3350 8.5 g PO DAILY PRN 30 Days #330 ea 07/09/20 quetiapine [Seroquel] 50 mg PO DAILY PRN 30 Days #30 tab 07/09/20 Allergies Allergy/AdvReac Type Severity Reaction Status Date / Time No Known Allergies Allergy Verified 08/03/20 15:05 [No Known Allergies*] Review of Systems Review of Systems: ROS unable to be obtained due to altered mental status [facility] Past Medical History Attestation statement: The following information was validated with the patient. Medical History Difficulty sleeping Polysubstance abuse Suicide attempt Social History Social History Household Members: None Housing: Apartment Alcohol intake: never Smoking Status: Current some day smoker Tobacco Type: Cigarette Cigarettes Per Day: 4 Second Hand Smoke Exposure: No Substance Use Type: Crack/Cocaine and Prescription Drugs Advance Directives: No Advance Directives Information Provided: No service: No Sexual orientation: Straight/Heterosexual Physical Exam Vital Signs: Vital Signs: Last Vital Signs Temp 98.8 F 08/03/20 15:10 Pulse 81 08/03/20 15:10 Resp 16 08/03/20 15:10 BP 134/90 H 08/03/20 15:10 Pulse Ox 97 08/03/20 15:10 Body Mass Index 40.5 Appearance: Somnolent Oriented X3. Mild acute distress. Eyes: 5mm Pupils equal, round and reactive to light. ENT: Pharynx dry Neck: Normal inspection. Neck supple. CVS: Normal heart rate and rhythm. Pulses normal. Respiratory: No respiratory distress. Breath sounds normal. Abdomen: Soft and non-tender. Skin: Skin warm and dry. Normal skin color. Normal skin turgor. Extremities: No lower extremity edema. No calf ttp Neuro: Oriented X 3. No motor deficit. No sensory deficit. No clonus Course Course Course Narrative: amp of HCO3 ordered, pending call to poison control, will repeat HCO3 bolus and possible HCO3 drip if boluses help poison control repeat labs 4 hours, q2hr EKGs, signed out to Dr. Fernandez pending further testing MDM - Overdose MDM Narrative Medical decision making narrative: 45 yo male with substance abuse and prior SI here with reported significant overdose - IV magnesium ordered, QRS wide (hx of same in past) although EKG does look like Brugada to me amp of HCO3 ordered - will consult poison control, patient is too sleepy for for charcoal, EKGs, tox labs, IVF ordered, further reccs pending, once medically cleared will need crisis involvement Lab Data Result diagrams: 08/03/20 15:24 08/03/20 15:24 Labs: Lab Results 08/03/20 08/03/20 08/03/20 Range/Units 15:24 15:24 15:24 WBC 10.4 (4.8-10.8) X10*3/uL RBC 5.48 (4.60-5.80) X10*6/uL Hgb 16.3 (14.0-18.0) g/dl Hct 47.9 (42-52) % MCV 87.4 (80-98) fL MCH 29.7 (27.0-33.0) pg MCHC 34.0 (31.0-36.0) g/dl RDW 12.6 (11.0-16.0) % Plt Count 307 (160-400) X10*3/uL MPV 9.1 L (9.4-12.4) fL Immature Gran % (Auto) 0.3 (0.0-0.4) % Neut % (Auto) 69.7 (45-73) % Lymph % (Auto) 16.9 L (20-40) % [place] % (Auto) 9.1 (2-11) % Eos % (Auto) 3.3 (0-4) % Baso % (Auto) 0.7 (0-2) % Lymph # (Auto) 1.8 (1.2-4.9) X10*3/uL [place] # (Auto) 1.0 (0.1-1.2) X10*3/uL Eos # (Auto) 0.3 (0.0-0.4) X10*3/uL Baso # (Auto) 0.1 (0.0-0.2) X10*3/uL Abs Immat Gran (auto) 0.03 (0.00-0.03) X10*3/uL Absolute Neuts (auto) 7.2 (2.0-8.3) X10*3/uL Absolute Nucleated RBC 0.000 (0.0-0.012) X10*3/uL Nucleated RBC % (auto) 0.0 (0.0-0.2) /100WBC PT 12.5 (10.8-13.0) SEC INR 1.1 (0.9-1.1) APTT 35.8 (24.1-38.0) SEC VBG pH (7.32-7.43) VBG pCO2 mmhg VBG pO2 mmhg VBG HCO3 mmol/L VBG O2 Saturation % VBG Base Excess mmol/L Magnesium (1.6-2.6) mg/dL Total Bilirubin (0.0-1.0) mg/dL Direct Bilirubin (0.0-0.5) mg/dL AST (5-37) U/L ALT (0-40) U/L Alkaline Phosphatase (39-117) U/L Total Protein (6.5-8.0) g/dL Albumin (3.5-5.0) g/dL Lipase (8-78) U/L Salicylates (15-30) mg/dL Ethyl Alcohol mg/dL Acetone, Qual Negative (Negative) 08/03/20 08/03/20 08/03/20 Range/Units 15:24 15:24 15:25 WBC (4.8-10.8) X10*3/uL RBC (4.60-5.80) X10*6/uL Hgb (14.0-18.0) g/dl Hct (42-52) % MCV (80-98) fL MCH (27.0-33.0) pg MCHC (31.0-36.0) g/dl RDW (11.0-16.0) % Plt Count (160-400) X10*3/uL MPV (9.4-12.4) fL Immature Gran % (Auto) (0.0-0.4) % Neut % (Auto) (45-73) % Lymph % (Auto) (20-40) % [place] % (Auto) (2-11) % Eos % (Auto) (0-4) % Baso % (Auto) (0-2) % Lymph # (Auto) (1.2-4.9) X10*3/uL [place] # (Auto) (0.1-1.2) X10*3/uL Eos # (Auto) (0.0-0.4) X10*3/uL Baso # (Auto) (0.0-0.2) X10*3/uL Abs Immat Gran (auto) (0.00-0.03) X10*3/uL Absolute Neuts (auto) (2.0-8.3) X10*3/uL Absolute Nucleated RBC (0.0-0.012) X10*3/uL Nucleated RBC % (auto) (0.0-0.2) /100WBC PT (10.8-13.0) SEC INR (0.9-1.1) APTT (24.1-38.0) SEC VBG pH 7.34 (7.32-7.43) VBG pCO2 45 mmhg VBG pO2 24 mmhg VBG HCO3 23 mmol/L VBG O2 Saturation 41.9 % VBG Base Excess -2.6 mmol/L Magnesium 1.9 (1.6-2.6) mg/dL Total Bilirubin 0.8 (0.0-1.0) mg/dL Direct Bilirubin 0.4 (0.0-0.5) mg/dL AST 15 (5-37) U/L ALT 11 (0-40) U/L Alkaline Phosphatase 57 (39-117) U/L Total Protein 7.7 (6.5-8.0) g/dL Albumin 4.6 (3.5-5.0) g/dL Lipase 13 (8-78) U/L Salicylates < 5.0 L (15-30) mg/dL Ethyl Alcohol < 10 mg/dL Acetone, Qual (Negative) ECG Data Attestation: I personally reviewed and interpreted this ECG as follows: ECG interpretation date: 08/03/20 ECG interpretation time: 15:48 Interpretation: Rate: 70s Rhythm: NSR [place]: normal Normal P waves. Normal KIMBERLYN. wide complex ST T wave : qTC: prolonged prior studies: no sig change, appearance of brugada pattern The study has been interpreted contemporaneously by me. #2 after initial HCO3 bolus Rate: 78 Rhythm: NSR [place]: normal Normal P waves. Normal KIM[place]. wide QRS complex. ST T wave : normal qTC: prolonged prior studies: no change, appearance of brugada pattern The study has been interpreted contemporaneously by me. . Critical Care Time Critical Care Time Critical Care Time: Yes Total Critical Care Time: 35 Attestation: I attest to this time spent taking care of the patient Discharge Plan Discharge Clinical Impression: Drug overdose Qualifiers: Encounter type: initial encounter Injury intent: intentional self-harm Qualified Code(s): T50.902A - Poisoning by unspecified drugs, medicaments and biological substances, intentional self-harm, initial encounter Prescriptions: No Action docusate sodium 100 mg Capsule 100 mg PO BID 30 Days Qty: 60 RF: 0 hydroxyzine HCl 50 mg Tablet 50 mg PO TID PRN (Reason: Anxiety) 30 Days Qty: 45 RF: 0 pantoprazole 20 mg Tablet,Delayed Release (Dr/Ec) 20 mg PO DAILY 30 Days Qty: 30 RF: 0 quetiapine [Seroquel] 50 mg Tablet 50 mg PO DAILY PRN (Reason: Anxiety) 30 Days Qty: 30 RF: 0 polyethylene glycol 3350 8.5 gram Powder In Packet 8.5 g PO DAILY PRN (Reason: Constipation) 30 Days Qty: 330 RF: 0
[2020-08-03 15:10] VITALS: BP 133/87; BP 134/90; PULSE 81; PULSE 98; RESP 16; TEMP 37.1; O2SAT 97; BMI 40.5
--- NOTE | 2020-08-03 15:22 | PC.NURSE ---
Security at bedside at arrival. Belongings in decon. MD at bedside as well. Pt able to take few sips of charcoal b ut not many. Pt can't state whether he vomitedafter injection of pills. Clothing was not soiled.
[2020-08-03] MEDS: Magnesium Sulfate/H2O 2 GM/50 ML PIGGYBACK IV (15:25)
[2020-08-03] MEDS: 0.9 % Sodium Chloride 1,000 ML 999 ML IVCONT (15:25)
[2020-08-03] MEDS: Activated charcoaL 50 GM/240 ML ORAL.SUSP PO (15:26)
--- NOTE | 2020-08-03 15:26 | PC.NURSE ---
sitter at bedside.
[2020-08-03 15:33] LABS: PCO2 VBG 45 mmhg; PO2 VBG 24 mmhg; pH VBG 7.34 (7.32-7.43)
[2020-08-03 15:33] LABS: Basophils Absolute Auto 0.1 X10*3/uL (0.0-0.2); Basophils Percent Auto 0.7 % (0-2); Eosinophils Absolute Auto 0.3 X10*3/uL (0.0-0.4); Eosinophils Percent Auto 3.3 % (0-4); Hematocrit 47.9 % (42-52); Hemoglobin 16.3 g/dl (14.0-18.0); Imm Gran Abs Auto 0.03 X10*3/uL (0.00-0.03); Imm Gran Pct Auto 0.3 % (0.0-0.4); Lymphocytes Absolute Auto 1.8 X10*3/uL (1.2-4.9); Lymphocytes Percent Auto 16.9 % (20-40); MANUAL DIFF FLAG NO; Mean Corpuscular Hemoglobin 29.7 pg (27.0-33.0); Mean Corpuscular Volume 87.4 fL (80-98); Mean Platelet Volume 9.1 fL (9.4-12.4); Monocytes Percent Auto 9.1 % (2-11); Neutrophils Absolute Auto 7.2 X10*3/uL (2.0-8.3); Neutrophils Percent Auto 69.7 % (45-73); Platelet Count 307 X10*3/uL (160-400); Red Blood Count 5.48 X10*6/uL (4.60-5.80); Red Cell Distribution Width 12.6 % (11.0-16.0); White Blood Count 10.4 X10*3/uL (4.8-10.8)
[2020-08-03 15:34] LABS: Base Excess VBG -2.6 mmol/L; HCO3 VBG 23 mmol/L; Oxygen Saturation VBG 41.9 %
[2020-08-03 15:35] LABS: Blood Gas Serial # 5414
[2020-08-03 15:41] LABS: INTERNATIONAL NORM RATIO 1.1 (0.9-1.1); Prothrombin Time 12.5 SEC (10.8-13.0)
[2020-08-03 15:44] LABS: Partial Thromboplastin Time 35.8 SEC (24.1-38.0)
[2020-08-03] MEDS: Sodium Bicarbonate 8.4% 50 MEQ/50 ML SYRINGE IVPUSH ×2 (15:47→16:16)
--- NOTE | 2020-08-03 15:51 | ECG_ITS ---
Test Reason : OVERDOSE Blood Pressure : / mmHG Vent. Rate : 078 BPM Atrial Rate : 078 BPM P-R Int : 148 ms QRS Dur : 106 ms QT Int : 426 ms P-R-T Axes : -22 027 035 degrees QTc Int : 485 ms Normal sinus rhythm Brugada pattern Nonspecific T wave abnormality Prolonged QT Abnormal ECG When compared with ECG of 08-JUL-2020 14:45, No significant changes seen Referred By: Bandar Fernandez Electronically Signed By:OSCAR CARDENAS
--- NOTE | 2020-08-03 15:58 | PC.NURSE ---
Posion control contacted: Watch QRS and QTc. If QRS continues to prolong push additional boluses of bicarb (total 2-3), if affective start drip. Repeat EKG q 4 hrs if mental status is unchanged but more frequently if AMS worsens. Check for urinary retention, agitation, delirium, hallucinations. If this worsens sedate with benzos. CUrrent lab orders are appropriate.
[2020-08-03 15:59] LABS: Ethanol < 10 mg/dL
[2020-08-03 16:04] LABS: Alanine Aminotransferase 11 U/L (0-40); Albumin Level 4.6 g/dL (3.5-5.0); Alkaline Phosphatase 57 U/L (39-117); Aspartate Amino Transferase 15 U/L (5-37); Bilirubin Direct 0.4 mg/dL (0.0-0.5); Bilirubin Total 0.8 mg/dL (0.0-1.0); Lipase 13 U/L (8-78); Magnesium 1.9 mg/dL (1.6-2.6); Salicylate < 5.0 mg/dL (15-30); Total Protein 7.7 g/dL (6.5-8.0)
[2020-08-03 16:06] LABS: Acetone, serum QL Negative (Negative)
[2020-08-03 16:18] VITALS: BP 133/89; PULSE 78; RESP 14; O2SAT 98
[2020-08-03 16:18] LABS: Acetaminophen LAB < 1 mcg/mL (<30); Anion Gap 14 (12-20); Blood Urea Nitrogen 13 mg/dL (9-16); Calcium 9.4 mg/dL (8.4-10.2); Carbon Dioxide 25 mmol/L (22-29); Chloride 99 mmol/L (96-108); Estimated Glomerular Filt Rate > 60; Glucose Random 70 mg/dL (60-115); Potassium 3.2 mmol/l (3.3-5.1); Sodium 135 mmol/L (135-145)
[2020-08-03] MEDS: Sodium Bicarbonate 8.4% 150 MEQ in Dextrose 5 % 850 ML 50 MEQ IV (16:55)
--- NOTE | 2020-08-03 17:14 | PC.NURSE ---
sodium bicarb drip started. pt unable to respond in comprehensible speech, alert to light verbal stimuli. vss. pt straight cathed for 800 ml clear yellow urine
[2020-08-03 18:07] VITALS: BP 127/84; PULSE 78; RESP 20; TEMP 37.1; O2SAT 100
[2020-08-03 18:18] LABS: Amphetamine Screen Urine POSITIVE (Not Detect); Barbiturates, Urine Not Detected (Not Detect); Benzodiazepines Screen Urine Not Detected (Not Detect); Cannabinoid Screen Urine Not Detected (Not Detect); Cocaine Screen Urine Not Detected (Not Detect); Opiate Screen Urine Not Detected (Not Detect); Phencyclidine Screen Urine Not Detected (Not Detect)
[2020-08-03 18:19] VITALS: BP 121/63; PULSE 75; RESP 14; O2SAT 99
[2020-08-03] MEDS: Potassium Chloride/H20 10 MEQ/100 ML PIGGYBACK 100 MEQ IV ×2 (19:52→22:53)
[2020-08-03 21:12] LABS: Basophils Absolute Auto 0.1 X10*3/uL (0.0-0.2); Basophils Percent Auto 0.6 % (0-2); Eosinophils Absolute Auto 0.5 X10*3/uL (0.0-0.4); Eosinophils Percent Auto 4.7 % (0-4); Hematocrit 42.2 % (42-52); Hemoglobin 14.5 g/dl (14.0-18.0); Imm Gran Abs Auto 0.03 X10*3/uL (0.00-0.03); Imm Gran Pct Auto 0.3 % (0.0-0.4); Lymphocytes Absolute Auto 3.1 X10*3/uL (1.2-4.9); Lymphocytes Percent Auto 26.6 % (20-40); MANUAL DIFF FLAG NO; Mean Corpuscular HGB Conc 34.4 g/dl (31.0-36.0); Mean Corpuscular Hemoglobin 29.8 pg (27.0-33.0); Mean Corpuscular Volume 86.8 fL (80-98); Mean Platelet Volume 8.9 fL (9.4-12.4); Monocytes Absolute Auto 1.2 X10*3/uL (0.1-1.2); Monocytes Percent Auto 10.5 % (2-11); Neutrophils Absolute Auto 6.6 X10*3/uL (2.0-8.3); Neutrophils Percent Auto 57.3 % (45-73); Platelet Count 282 X10*3/uL (160-400); Red Blood Count 4.86 X10*6/uL (4.60-5.80); Red Cell Distribution Width 12.6 % (11.0-16.0); White Blood Count 11.6 X10*3/uL (4.8-10.8)
--- NOTE | 2020-08-03 21:54 | PC.NURSE ---
per md no need for repeat ekg
[2020-08-03 21:56] LABS: Alanine Aminotransferase 9 U/L (0-40); Alkaline Phosphatase 49 U/L (39-117); Anion Gap 12 (12-20); Aspartate Amino Transferase 13 U/L (5-37); Bilirubin Total 0.8 mg/dL (0.0-1.0); Blood Urea Nitrogen 11 mg/dL (9-16); Calcium 8.2 mg/dL (8.4-10.2); Carbon Dioxide 28 mmol/L (22-29); Chloride 101 mmol/L (96-108); Creatinine Clr Calc Pharmacy 105.5; Estimated Glomerular Filt Rate > 60; Glucose Random 84 mg/dL (60-115); Potassium 2.9 mmol/l (3.3-5.1); Sodium 138 mmol/L (135-145); Total Protein 6.5 g/dL (6.5-8.0)
--- NOTE | 2020-08-03 22:10 | PC.NURSE ---
2200: ? stop bicar if nothing changes overnight per poision control. stop if qtc is <500. ekg q 4hrs. redraw potassium and blood gas after k replenishment. aware, bicarb stopped at 0.
[2020-08-03 22:48] VITALS: BP 115/73; PULSE 79; RESP 20; TEMP 36.6; O2SAT 99
[2020-08-03 23:54] VITALS: BP 139/72; PULSE 102; RESP 20; TEMP 36.7; O2SAT 99
--- NOTE | 2020-08-04 | ECG_ITS ---
Test Reason : OD Blood Pressure : / mmHG Vent. Rate : 070 BPM Atrial Rate : 070 BPM P-R Int : 166 ms QRS Dur : 098 ms QT Int : 466 ms P-R-T Axes : -03 053 062 degrees QTc Int : 503 ms Normal sinus rhythm Prolonged QT Brugada pattern Abnormal ECG When compared with ECG of 04-AUG-2020 06:32, No significant change was found Referred By: Bandar Fernandez Electronically Signed By:OSCAR CARDENAS
[2020-08-04] MEDS: Potassium Chloride/H20 10 MEQ/100 ML PIGGYBACK 100 MEQ IV (00:24)
--- NOTE | 2020-08-04 01:33 | ECG_ITS ---
Test Reason : OD Blood Pressure : / mmHG Vent. Rate : 084 BPM Atrial Rate : 084 BPM P-R Int : 168 ms QRS Dur : 102 ms QT Int : 444 ms P-R-T Axes : 041 036 047 degrees QTc Int : 524 ms Normal sinus rhythm Prolonged QT Brugada pattern When compared with ECG of 03-AUG-2020 22:08, No significant change was found Referred By: Bandar Fernandez Electronically Signed By:OSCAR CARDENAS
--- NOTE | 2020-08-04 01:35 | PC.NURSE ---
repeat ekg: Pr interval: 168 QRS duration: 102 QT/QTC, 444/524 PRT axes 41-36-47 pt appears to be confused at this time.
[2020-08-04 01:55] VITALS: BP 126/66; PULSE 87; RESP 22; TEMP 36.4; O2SAT 98
[2020-08-04 01:56] LABS: Base Excess VBG 0.8 mmol/L; HCO3 VBG 27 mmol/L; Oxygen Saturation VBG 76.4 %; PCO2 VBG 51 mmhg; PO2 VBG 41 mmhg; pH VBG 7.35 (7.32-7.43)
[2020-08-04 02:19] LABS: Anion Gap 15 (12-20); Blood Urea Nitrogen 10 mg/dL (9-16); Calcium 8.5 mg/dL (8.4-10.2); Carbon Dioxide 25 mmol/L (22-29); Chloride 102 mmol/L (96-108); Creatinine Clr Calc Pharmacy 94.9; Estimated Glomerular Filt Rate > 60; Glucose Random 118 mg/dL (60-115); Potassium 3.2 mmol/l (3.3-5.1); Sodium 139 mmol/L (135-145)
--- NOTE | 2020-08-04 02:51 | PC.NURSE ---
unable to urinate at this.
--- NOTE | 2020-08-04 03:04 | PC.NURSE ---
per poision control: give mag to lower qtc, then call back after 6am with updated ekg. no concern for bruggatta syndrome
--- NOTE | 2020-08-04 03:51 | PC.NURSE ---
ekg taken per md request prior to giving mag. medina placed per md order 1400ml output
[2020-08-04] MEDS: Magnesium Sulfate/H2O 2 GM/50 ML PIGGYBACK IV (04:25)
[2020-08-04] MEDS: Potassium Chloride ER 20 MEQ TAB.ER.PRT PO (08:31)
--- NOTE | 2020-08-04 09:04 | ECG_ITS ---
Test Reason : OVERDOSE Blood Pressure : / mmHG Vent. Rate : 076 BPM Atrial Rate : 076 BPM P-R Int : 166 ms QRS Dur : 096 ms QT Int : 444 ms P-R-T Axes : -14 051 056 degrees QTc Int : 499 ms Normal sinus rhythm Prolonged QT Brugada pattern Abnormal ECG When compared with ECG of 04-AUG-2020 01:26, No significant change was found Referred By: Bandar Fernandez Electronically Signed By:OSCAR CARDENAS
--- NOTE | 2020-08-04 09:06 | ECG_ITS ---
Test Reason : OD Blood Pressure : / mmHG Vent. Rate : 068 BPM Atrial Rate : 068 BPM P-R Int : 172 ms QRS Dur : 102 ms QT Int : 462 ms P-R-T Axes : -20 040 057 degrees QTc Int : 491 ms Normal sinus rhythm Prolonged QT Brugada pattern Abnormal ECG When compared with ECG of 04-AUG-2020 03:47, No significant change was found Referred By: Bandar Fernandez Electronically Signed By:OSCAR CARDENAS
[2020-08-04 09:53] LABS: IDNOW Serial# 9DD0AD1C
[2020-08-04 09:54] VITALS: BP 122/75; PULSE 69; RESP 18; O2SAT 99
[2020-08-04 09:54] LABS: COVID-19 Test Negative (Negative)
[2020-08-04] MEDS: QUEtiapine Fumarate 50 MG TABLET 100 MG PO ×2 (11:25→17:12)
--- NOTE | 2020-08-04 16:01 | PC.ADMIT ---
45 YEAR OLD KINYARWANDA SPEAKING PATIENT ARRIVED ON UNIT AND PLACED ON 5 MIN SAFETY CHECKS. REFERRAL SOURCE: [facility] CRISIS LEGAL STATUS 3 DAY NOTICE SIGNED SEVERAL HOURS AFTER ARRIVAL ON UNIT. DIAGNOSIS AT REFERRAL: UNSPEC DEPRESSIVE D/O. PATIENT BROUGHT TO ED BY AMBULANCE DUE TO OVERDOSE OF BENADRYL AND HYDROXYZINE. PATIENT REPORTS ONGOING SI SINCE HIS EX BROKE UP WITH HIM. PATIENT REPORTS HE CAN NO LONGER TAKE THE PAIN. PATIENT STATES HE FEELS SAFE ON UNIT AND WILL COME TO STAFF IF FEELING UNSAFE. PATIENT DENIES SI/HI SINCE ON UNIT. PATIENT DENIES AH/VH. PATIENT WAS GIVEN PRN SEROQUIL 100MG FOR ACUTE DISTRESS WITH GOOD AFFECT. PATIENT COOPERATIVE DURING ASSESSMENT. ALL ADMISSION PAPERWORK SIGNED BY PATIENT. SAFETY TOOL COMPLETED AND SIGNED BY PATIENT. ADMITTING ORDER PER DR MTZ. SAFETY CHECKS NOW Q 15 MIN. ORDERS TO BLADDER SCAN PATIENT EVERY 8 HRS AND PRN PATIENTS REPORT OF SYMPTOMS OR RETENTION. ST CATH FOR RESIDUAL OVER 600 CC. PATIENT LAST ADMIT TO UNIT 06/2020.
[2020-08-04 18:00] VITALS: BP 109/56; PULSE 68; TEMP 36.6; TEMP 36.7
[2020-08-04] MEDS: Docusate Sodium 100 MG CAPSULE PO (20:25)
--- NOTE | 2020-08-04 22:06 | PC.NURSE ---
Pt amanda Eugene has a Dr orders- straight cath if residual urine greater than 600 ml. Pt was able to ambulate on his own strength independently. Pt voided 500 ml at 1600. Pt was bladder scanned at 18:52 with a urine amount of 370ml, pt could not void moments after the scan. pt bladder scanned again 21:00 with 946ml of urine and was able to void 500ml right after the scan. Pt scanned again after voiding 500ml and the scanner read 379ml of residual urine retained. Pt should be bladder scanned Q8r or more frequently. Pt refused his dinner tray and nursing staff were able to get him to drink some fluids.
[2020-08-05] MEDS: Magnesium Hydrox/Alum Hydrox 30 ML ORAL.SUSP PO (02:01)
[2020-08-05] MEDS: QUEtiapine Fumarate 50 MG TABLET 100 MG PO ×2 (02:01→09:05)
[2020-08-05 06:00] VITALS: BP 118/81; PULSE 74; TEMP 36.7
[2020-08-05] MEDS: Docusate Sodium 100 MG CAPSULE PO ×2 (09:05→23:30)
[2020-08-05] MEDS: Omeprazole 20 MG CAPSULE.DR PO (09:06)
[2020-08-05] MEDS: polyethylene glycoL 3350 17 GM POWD.PACK 8.5 GM PO (09:06)
--- NOTE | 2020-08-05 10:35 | HO.PSYADMNOT ---
HPI Chief Complaint: suicidal behavior Sources of Information: patient interviewed, chart reviewed and crisis/core team assessment reviewed HPI Narrative: Pt well known to M5 and TW. Was recently on M5 in mid Jun. Now presents after a significant OD on Benadryl/Vistaril. Has urinary retention . Stressor was that his is leaving him and he saw her on Thanksgiving with a male friend. X similar presentations with prompt 3 day notice and DC followed by relationship related relapses. This time + for amphetamines. Also had hypoK+ and wide QRS (Brugada-like). On m5 pt has promptly put in 3 day notice. Also has been acting out banging patten. Past Psychiatric History: X hospitalizations: APTU/M5. States starting program at [facility] [email or web address] Medical Evaluation Reviewed: Yes [facility] Medical History Difficulty sleeping Polysubstance abuse Suicide attempt Family History: None Social History: , frequent friction, upset bc he was talking to a girl , lives in own apt. Not employed Trauma History: Childhood Jennifer : physical/emotional Diagnostics Vital Signs (24Hr): Vital Signs - 24 hr 08/04/20 18:00 Temperature 98 F Pulse Rate 68 Blood Pressure 109/56 L Body Mass Index 40.5 Labs Results: 08/03/20 21:07 08/04/20 01:46 Labs: Laboratory Results - last 48 hr 08/03/20 08/03/20 08/03/20 15:24 15:24 15:24 WBC 10.4 RBC 5.48 Hgb 16.3 Hct 47.9 MCV 87.4 MCH 29.7 MCHC 34.0 RDW 12.6 Plt Count 307 MPV 9.1 L Immature Gran % (Auto) 0.3 Neut % (Auto) 69.7 Lymph % (Auto) 16.9 L [place] % (Auto) 9.1 Eos % (Auto) 3.3 Baso % (Auto) 0.7 Lymph # (Auto) 1.8 [place] # (Auto) 1.0 Eos # (Auto) 0.3 Baso # (Auto) 0.1 Abs Immat Gran (auto) 0.03 Absolute Neuts (auto) 7.2 Absolute Nucleated RBC 0.000 Nucleated RBC % (auto) 0.0 PT 12.5 INR 1.1 APTT 35.8 VBG pH VBG pCO2 VBG pO2 VBG HCO3 VBG O2 Saturation VBG Base Excess Sodium 135 Potassium 3.2 L D Chloride 99 Carbon Dioxide 25 Anion Gap 14 BUN 13 Creatinine 1.16 Estim Creat Clear Calc 90.0 Estimated GFR > 60 Random Glucose 70 D Calcium 9.4 Magnesium Total Bilirubin Direct Bilirubin AST ALT Alkaline Phosphatase Total Protein Albumin Lipase Salicylates Urine Opiates Screen Acetaminophen < 1 Ur Barbiturates Screen Ur Phencyclidine Scrn Ur Amphetamines Screen U Benzodiazepines Scrn Urine Cocaine Screen U Marijuana (THC) Screen Ethyl Alcohol Acetone, Qual Negative COVID-19 (MAN) COVID-19 [employer] 08/03/20 08/03/20 08/03/20 15:24 15:24 15:25 WBC RBC Hgb Hct MCV MCH MCHC RDW Plt Count MPV Immature Gran % (Auto) Neut % (Auto) Lymph % (Auto) [place] % (Auto) Eos % (Auto) Baso % (Auto) Lymph # (Auto) [place] # (Auto) Eos # (Auto) Baso # (Auto) Abs Immat Gran (auto) Absolute Neuts (auto) Absolute Nucleated RBC Nucleated RBC % (auto) PT INR APTT VBG pH 7.34 VBG pCO2 45 VBG pO2 24 VBG HCO3 23 VBG O2 Saturation 41.9 VBG Base Excess -2.6 Sodium Potassium Chloride Carbon Dioxide Anion Gap BUN Creatinine Estim Creat Clear Calc Estimated GFR Random Glucose Calcium Magnesium 1.9 Total Bilirubin 0.8 Direct Bilirubin 0.4 AST 15 ALT 11 Alkaline Phosphatase 57 Total Protein 7.7 Albumin 4.6 Lipase 13 Salicylates < 5.0 L Urine Opiates Screen Acetaminophen Ur Barbiturates Screen Ur Phencyclidine Scrn Ur Amphetamines Screen U Benzodiazepines Scrn Urine Cocaine Screen U Marijuana (THC) Screen Ethyl Alcohol < 10 Acetone, Qual COVID-19 (MAN) COVID-[employer] 08/03/20 08/03/20 08/03/20 17:08 21:07 21:07 WBC 11.6 H RBC 4.86 Hgb 14.5 Hct 42.2 MCV 86.8 MCH 29.8 MCHC 34.4 RDW 12.6 Plt Count 282 MPV 8.9 L Immature Gran % (Auto) 0.3 Neut % (Auto) 57.3 Lymph % (Auto) 26.6 [place] % (Auto) 10.5 Eos % (Auto) 4.7 H Baso % (Auto) 0.6 Lymph # (Auto) 3.1 [place] # (Auto) 1.2 Eos # (Auto) 0.5 H Baso # (Auto) 0.1 Abs Immat Gran (auto) 0.03 Absolute Neuts (auto) 6.6 Absolute Nucleated RBC 0.000 Nucleated RBC % (auto) 0.0 PT INR APTT VBG pH VBG pCO2 VBG pO2 VBG HCO3 VBG O2 Saturation VBG Base Excess Sodium 138 Potassium 2.9 L Chloride 101 Carbon Dioxide 28 Anion Gap 12 BUN 11 Creatinine 0.99 Estim Creat Clear Calc 105.5 Estimated GFR > 60 Random Glucose 84 Calcium 8.2 L D Magnesium Total Bilirubin 0.8 Direct Bilirubin AST 13 ALT 9 Alkaline Phosphatase 49 Total Protein 6.5 Albumin 4.0 Lipase Salicylates Urine Opiates Screen Not Detected Acetaminophen Ur Barbiturates Screen Not Detected Ur Phencyclidine Scrn Not Detected Ur Amphetamines Screen POSITIVE H U Benzodiazepines Scrn Not Detected Urine Cocaine Screen Not Detected U Marijuana (THC) Screen Not Detected Ethyl Alcohol Acetone, Qual COVID-19 (MAN) COVID-19 Clin Com 08/04/20 08/04/20 08/04/20 01:46 01:46 09:31 WBC RBC Hgb Hct MCV MCH MCHC RDW Plt Count MPV Immature Gran % (Auto) Neut % (Auto) Lymph % (Auto) [place] % (Auto) Eos % (Auto) Baso % (Auto) Lymph # (Auto) [place] # (Auto) Eos # (Auto) Baso # (Auto) Abs Immat Gran (auto) Absolute Neuts (auto) Absolute Nucleated RBC Nucleated RBC % (auto) PT INR APTT VBG pH 7.35 VBG pCO2 51 VBG pO2 41 VBG HCO3 27 VBG O2 Saturation 76.4 VBG Base Excess 0.8 Sodium 139 Potassium 3.2 L Chloride 102 Carbon Dioxide 25 Anion Gap 15 BUN 10 Creatinine 1.10 Estim Creat Clear Calc 94.9 Estimated GFR > 60 Random Glucose 118 H D Calcium 8.5 Magnesium Total Bilirubin Direct Bilirubin AST ALT Alkaline Phosphatase Total Protein Albumin Lipase Salicylates Urine Opiates Screen Acetaminophen Ur Barbiturates Screen Ur Phencyclidine Scrn Ur Amphetamines Screen U Benzodiazepines Scrn Urine Cocaine Screen U Marijuana (THC) Screen Ethyl Alcohol Acetone, Qual COVID-19 (MAN) Negative COVID-19 Clin Com See Note Meds/Allergies Meds Home Medications Acetaminophen (Acetaminophen 325 Mg Tablet) 650 mg PO Q6H PRN PRN Reason: Headache/Pain Mild Scale (1-3) Last Admin: 08/06/20 09:25 Dose: 650 mg Documented by: Al Hydroxide/Mg Hydroxide (Magnesium Hydrox/Alum Hydrox 30 Ml Oral.Susp) 30 ml PO Q6H PRN PRN Reason: Heartburn/Nausea Last Admin: 08/05/20 02:01 Dose: 30 ml Documented by: Docusate Sodium (Docusate Sodium 100 Mg Capsule) 100 mg PO BID [facility] Last Admin: 08/06/20 09:20 Dose: 100 mg Documented by: Lorazepam (Lorazepam 1 Mg Tablet) 1 mg PO Q4H PRN PRN Reason: anxiety/restlessness Last Admin: 08/06/20 12:29 Dose: 1 mg Documented by: Magnesium Hydroxide (Milk Of Magnesia 30 Ml Oral.Susp) 30 ml PO DAILY PRN PRN Reason: Constipation Nicotine (Nicotine 14 Mg Patch.Td24) 14 mg TRANSDERMA DAILY [facility] Last Admin: 08/06/20 09:19 Dose: 14 mg Documented by: Nicotine Polacrilex (Nicotine Polacrilex 2 Mg Gum) 2 mg BUCCAL Q2H PRN PRN Reason: Nicotine Cravings Omeprazole (Omeprazole 20 Mg Capsule.Dr) 20 mg PO DAILY@0630 [facility] Last Admin: 08/06/20 09:20 Dose: 20 mg Documented by: Polyethylene Glycol (Polyethylene Glycol 3350 17 Gm Powd.Pack) 8.5 gm PO DAILY PRN PRN Reason: Constipation Last Admin: 08/06/20 09:22 Dose: 8.5 gm Documented by: Trazodone HCl (Trazodone Hcl 50 Mg Tablet) 50 mg PO BEDTIME PRN PRN Reason: Insomnia Allergies Allergies Allergy/AdvReac Type Severity Reaction Status Date / Time No Known Allergies Allergy Verified 08/03/20 15:05 [No Known Allergies*] Mental Status Exam Mental Status Exam Patient Appearance: Disheveled Patient Orientation: Person, Place, Time and Situation Level of Consciousness: Awake Patient Behavior: Guarded, Cooperative and Restless Mood Description: Anxious Speech Pattern: Clear Memory Description: Intact Hallucinations: None Delusions: Not Present Thought Process: Intact Thought Content: positive for Evasive and positive for Suicidal Ideation Depressive Symptoms: Thoughts of /Suicide Abnormal Motor Activity Signs and Symptoms: Agitation Assessment & Plan Assessment & Plan (1) Depression: Status: Resolved Code(s): F32.9 - Major depressive disorder, single episode, unspecified (2) Suicidal ideation: Status: Resolved Code(s): R45.851 - Suicidal ideations Assessment and Plan: Hold benadryl/vistaril. Ct Seroquel given agitation. Recheck EKG Group therapy. q5 w LBR.
[2020-08-05] MEDS: Nicotine 14 MG PATCH.TD24 TRANSDERMA (11:01)
--- NOTE | 2020-08-05 11:59 | ECG_ITS ---
Test Reason : CONGEN HEART HX Blood Pressure : / mmHG Vent. Rate : 069 BPM Atrial Rate : 069 BPM P-R Int : 176 ms QRS Dur : 096 ms QT Int : 392 ms P-R-T Axes : -13 057 056 degrees QTc Int : 420 ms Normal sinus rhythm Normal ECG When compared with ECG of 04-AUG-2020 09:48, QT has shortened Brugada pattern no longer seen Referred By: Buck Travis Electronically Signed By:OSCAR CARDENAS
--- NOTE | 2020-08-05 13:09 | PC.NURSE ---
This screen writer received a phone call from concerned friend of the patient; the friend stated the patient had just called him to say he was going to be discharged on Monday and he was going commit suicide as soon as he was out of the hospital. This screen writer did witness pt making a phone call right before friend called to provide this information. MD, nursing and SW made aware.
[2020-08-05 23:06] VITALS: BP 126/86; PULSE 70; TEMP 36.2
[2020-08-06 06:00] VITALS: BP 124/73; PULSE 58; TEMP 36.6
[2020-08-06] MEDS: Nicotine 14 MG PATCH.TD24 TRANSDERMA (09:19)
[2020-08-06] MEDS: Omeprazole 20 MG CAPSULE.DR PO (09:20)
[2020-08-06] MEDS: Docusate Sodium 100 MG CAPSULE PO ×2 (09:20→22:35)
[2020-08-06] MEDS: polyethylene glycoL 3350 17 GM POWD.PACK 8.5 GM PO (09:22)
[2020-08-06] MEDS: Acetaminophen 325 MG TABLET 650 MG PO (09:25)
[2020-08-06] MEDS: LORazepam 1 MG TABLET PO ×2 (12:29→22:35)
--- NOTE | 2020-08-06 16:20 | P.PNPSI_ITS ---
Subjective Subjective Date of Service: 08/06/20 Reason For Visit: suicidal behavior Subjective Notes: Conditional Voluntary Interim History: Remains dysphoric. Writing letters to his . Acknowledges he lost her. Intense affect. Tried DSH yesterday. Some wall/head banging. Feels betrayed by . I asked him to consider withdrawing 3day notice and need for more stability. EKG improved. Resume Seroquel. High [place] score. Ct plan. Medication Compliance: Yes Side effects from medications: Yes Attending Groups: Yes Review of Systems Review of Systems ROS unable to be obtained due to altered mental status Genitourinary: Reports difficulty urinating Comments: retention resolved Mental Status Exam Mental Status Exam Patient Appearance: Disheveled Patient Orientation: Person, Place, Time and Situation Level of Consciousness: Awake Patient Behavior: Guarded, Cooperative, Restless and Impulsive Mood Description: Depressed and Anxious Affect Description: Angry Speech Pattern: Clear Memory Description: Intact Thought Content: positive for Suicidal Ideation Depressive Symptoms: Thoughts of /Suicide Abnormal Motor Activity Signs and Symptoms: Restlessness Judgement: Poor Diagnostics Vital Signs (24Hr): Vital Signs - 24 hr 08/05/20 23:06 08/06/20 06:00 Temperature 97.2 F 97.8 F Pulse Rate 70 58 Blood Pressure 126/86 124/73 Body Mass Index 40.5 Labs Results: 08/03/20 21:07 08/04/20 01:46 Medications Medications Current Medications Generic Name Dose Route Start Last Admin Trade Name Freq PRN Reason Stop Dose Admin Acetaminophen 650 mg 08/04/20 10:20 08/06/20 09:25 Acetaminophen 325 Mg Tablet PO 650 mg Q6H PRN Administration Headache/Pain Mild Scale (1-3) Al Hydroxide/Mg Hydroxide 30 ml 08/04/20 10:20 08/05/20 02:01 Magnesium Hydrox/Alum Hydrox 30 Ml Oral.Susp PO 30 ml Q6H PRN Administration Heartburn/Nausea Docusate Sodium 100 mg 08/04/20 21:00 08/06/20 09:20 Docusate Sodium 100 Mg Capsule PO 100 mg BID RADHA Administration Lorazepam 1 mg 08/05/20 19:06 08/06/20 12:29 Lorazepam 1 Mg Tablet PO 1 mg Q4H PRN Administration anxiety/restlessness Magnesium Hydroxide 30 ml 08/04/20 10:20 Milk Of Magnesia 30 Ml Oral.Susp PO DAILY PRN Constipation Nicotine 14 mg 08/05/20 09:00 08/06/20 09:19 Nicotine 14 Mg Patch.Td24 TRANSDERMA 14 mg DAILY RADHA Administration Nicotine Polacrilex 2 mg 08/04/20 10:20 Nicotine Polacrilex 2 Mg Gum BUCCAL Q2H PRN Nicotine Cravings Omeprazole 20 mg 08/05/20 09:00 08/06/20 09:20 Omeprazole 20 Mg Capsule.Dr PO 20 mg DAILY@0630 RADHA Administration Polyethylene Glycol 8.5 gm 08/04/20 11:16 08/06/20 09:22 Polyethylene Glycol 3350 17 Gm Powd.Pack PO 8.5 gm DAILY PRN Administration Constipation Trazodone HCl 50 mg 08/04/20 10:20 Trazodone Hcl 50 Mg Tablet PO BEDTIME PRN Insomnia Allergies Allergies Allergy/AdvReac Type Severity Reaction Status Date / Time No Known Allergies Allergy Verified 08/03/20 15:05 [No Known Allergies*] Assessment & Plan Assessment & Plan (1) Depression: Status: Resolved Code(s): F32.9 - Major depressive disorder, single episode, unspecified (2) Suicidal ideation: Status: Resolved Code(s): R45.851 - Suicidal ideations Assessment and Plan: Hold benadryl/vistaril. Ct Seroquel given agitation. Encourage to wd 3 day notice Group therapy. q5 w LBR. DC bladder scans Greater than 50% of the session was spent on counseling and/or coordination of care
[2020-08-06] MEDS: Magnesium Citrate 300 ML SOLUTION 150 ML PO (16:36)
[2020-08-06 17:55] VITALS: BP 138/65; PULSE 87; TEMP 36.2
[2020-08-06] MEDS: Ibuprofen 800 MG TABLET PO (18:53)
[2020-08-07] MEDS: QUEtiapine Fumarate 50 MG TABLET PO ×2 (00:37→22:54)
[2020-08-07 06:35] VITALS: BP 88/49; PULSE 65; RESP 18; TEMP 36.8; O2SAT 98
--- NOTE | 2020-08-07 07:55 | HO.PSYCHPN ---
Subjective Subjective Date of Service: 08/07/20 Reason For Visit: suicidal behavior Interim History: Presents self in good light. Had outburst yesterday after TC w . Upset as her new BF picked up phone. Today feeling a release after speaking with his therapist and uncle. Withdrew 3 day notice. Work towards DC on Mon. Back on Seroquel as EKG WNL. Review of Systems Review of Systems ROS unable to be obtained due to altered mental status Mental Status Exam Mental Status Exam Patient Appearance: Disheveled Patient Orientation: Person, Place, Time and Situation Level of Consciousness: Awake Patient Behavior: Guarded, Cooperative, Restless and Impulsive Mood Description: Depressed and Anxious Affect Description: Angry Speech Pattern: Clear Memory Description: Intact Diagnostics Vital Signs (24Hr): Vital Signs - 24 hr 08/06/20 17:55 08/07/20 06:35 Temperature 97.2 F 98.2 F Pulse Rate 87 65 Respiratory Rate 18 Blood Pressure 138/65 88/49 L Pulse Oximetry 98 Body Mass Index 40.5 Labs Results: 08/03/20 21:07 08/04/20 01:46 Medications Medications Current Medications Generic Name Dose Route Start Last Admin Trade Name Freq PRN Reason Stop Dose Admin Al Hydroxide/Mg Hydroxide 30 ml 08/04/20 10:20 08/05/20 02:01 Magnesium Hydrox/Alum Hydrox 30 Ml Oral.Susp PO 30 ml Q6H PRN Administration Heartburn/Nausea Docusate Sodium 100 mg 08/04/20 21:00 08/06/20 22:35 Docusate Sodium 100 Mg Capsule PO 100 mg BID RADHA Administration Ibuprofen 800 mg 08/06/20 18:06 08/06/20 18:53 Ibuprofen 800 Mg Tablet PO 800 mg TIDWM PRN Administration Pain, Moderate (Pain Scale 4-6 Lorazepam 1 mg 08/05/20 19:06 08/06/20 22:35 Lorazepam 1 Mg Tablet PO 1 mg Q4H PRN Administration anxiety/restlessness Magnesium Hydroxide 30 ml 08/04/20 10:20 Milk Of Magnesia 30 Ml Oral.Susp PO DAILY PRN Constipation Nicotine 14 mg 08/05/20 09:00 08/06/20 09:19 Nicotine 14 Mg Patch.Td24 TRANSDERMA 14 mg DAILY RADHA Administration Nicotine Polacrilex 2 mg 08/04/20 10:20 Nicotine Polacrilex 2 Mg Gum BUCCAL Q2H PRN Nicotine Cravings Omeprazole 20 mg 08/05/20 09:00 08/06/20 09:20 Omeprazole 20 Mg Capsule.Dr PO 20 mg DAILY@0630 RADHA Administration Polyethylene Glycol 8.5 gm 08/04/20 11:16 12 09:22 Polyethylene Glycol 3350 17 Gm Powd.Pack PO 8.5 gm DAILY PRN Administration Constipation Quetiapine Fumarate 50 mg 08/07/20 00:15 08/07/20 00:37 Quetiapine Fumarate 50 Mg Tablet PO 50 mg BEDTIME RADHA Administration Trazodone HCl 50 mg 08/04/20 10:20 Trazodone Hcl 50 Mg Tablet PO BEDTIME PRN Insomnia Allergies Allergies Allergy/AdvReac Type Severity Reaction Status Date / Time No Known Allergies Allergy Verified 08/03/20 15:05 [No Known Allergies*] Assessment & Plan Assessment & Plan (1) Depression: Status: Resolved Code(s): F32.9 - Major depressive disorder, single episode, unspecified (2) Suicidal ideation: Status: Resolved Code(s): R45.851 - Suicidal ideations Assessment and Plan: Hold benadryl/vistaril. Ct Seroquel given agitation Group therapy. q5 w LBR. Greater than 50% of the session was spent on counseling and/or coordination of care
[2020-08-07] MEDS: Nicotine 14 MG PATCH.TD24 TRANSDERMA (08:45)
[2020-08-07] MEDS: Omeprazole 20 MG CAPSULE.DR PO (08:46)
[2020-08-07] MEDS: Docusate Sodium 100 MG CAPSULE PO ×2 (08:46→22:53)
[2020-08-07 17:30] VITALS: BP 111/78; PULSE 74; TEMP 36.7
[2020-08-07] MEDS: polyethylene glycoL 3350 17 GM POWD.PACK 8.5 GM PO (21:42)
[2020-08-07] MEDS: LORazepam 1 MG TABLET PO (22:56)
[2020-08-08 06:10] VITALS: BP 121/59; PULSE 68; RESP 20; TEMP 37; O2SAT 99
[2020-08-08] MEDS: Omeprazole 20 MG CAPSULE.DR PO (06:35)
--- NOTE | 2020-08-08 07:38 | HO.PSYCHPN ---
Subjective Subjective Date of Service: 08/08/20 Reason For Visit: suicidal behavior Interim History: Better mood today. Has been reflecting on his life and recent events. Playing chess keeps my mind busy . Ct plan Review of Systems Review of Systems ROS unable to be obtained due to altered mental status Mental Status Exam Mental Status Exam Patient Appearance: Disheveled Patient Orientation: Person, Place, Time and Situation Level of Consciousness: Awake Patient Behavior: Guarded, Cooperative and Impulsive Mood Description: Depressed and Anxious Affect Description: Angry Speech Pattern: Clear Memory Description: Intact Diagnostics Vital Signs (24Hr): Vital Signs - 24 hr 08/07/20 17:30 08/08/20 06:10 Temperature 98.0 F 98.6 F Pulse Rate 74 68 Respiratory Rate 20 Blood Pressure 111/78 121/59 L Pulse Oximetry 99 Body Mass Index 40.5 Labs Results: 08/03/20 21:07 08/04/20 01:46 Medications Medications Current Medications Generic Name Dose Route Start Last Admin Trade Name Freq PRN Reason Stop Dose Admin Al Hydroxide/Mg Hydroxide 30 ml 08/04/20 10:20 08/05/20 02:01 Magnesium Hydrox/Alum Hydrox 30 Ml Oral.Susp PO 30 ml Q6H PRN Administration Heartburn/Nausea Docusate Sodium 100 mg 08/04/20 21:00 08/07/20 22:53 Docusate Sodium 100 Mg Capsule PO 100 mg BID RADHA Administration Ibuprofen 800 mg 08/06/20 18:06 08/06/20 18:53 Ibuprofen 800 Mg Tablet PO 800 mg TIDWM PRN Administration Pain, Moderate (Pain Scale 4-6 Lorazepam 1 mg 08/05/20 19:06 08/07/20 22:56 Lorazepam 1 Mg Tablet PO 1 mg Q4H PRN Administration anxiety/restlessness Magnesium Hydroxide 30 ml 08/04/20 10:20 Milk Of Magnesia 30 Ml Oral.Susp PO DAILY PRN Constipation Nicotine 14 mg 08/05/20 09:00 08/07/20 08:45 Nicotine 14 Mg Patch.Td24 TRANSDERMA 14 mg DAILY RADHA Administration Nicotine Polacrilex 2 mg 08/04/20 10:20 Nicotine Polacrilex 2 Mg Gum BUCCAL Q2H PRN Nicotine Cravings Omeprazole 20 mg 08/05/20 09:00 08/08/20 06:35 Omeprazole 20 Mg Capsule.Dr PO 20 mg DAILY@0630 RADHA Administration Polyethylene Glycol 8.5 gm 08/04/20 11:16 08/07/20 21:42 Polyethylene Glycol 3350 17 Gm Powd.Pack PO 8.5 gm DAILY PRN Administration Constipation Quetiapine Fumarate 50 mg 08/07/20 00:15 08/07/20 22:54 Quetiapine Fumarate 50 Mg Tablet PO 50 mg BEDTIME RADHA Administration Trazodone HCl 50 mg 08/04/20 10:20 Trazodone Hcl 50 Mg Tablet PO BEDTIME PRN Insomnia Allergies Allergies Allergy/AdvReac Type Severity Reaction Status Date / Time No Known Allergies Allergy Verified 08/03/20 15:05 [No Known Allergies*] Assessment & Plan Assessment & Plan (1) Depression: Status: Resolved Code(s): F32.9 - Major depressive disorder, single episode, unspecified (2) Suicidal ideation: Status: Resolved Code(s): R45.851 - Suicidal ideations Assessment and Plan: Hold benadryl/vistaril. Ct Seroquel given agitation Group therapy. q5 w LBR. Greater than 50% of the session was spent on counseling and/or coordination of care
[2020-08-08] MEDS: Nicotine 14 MG PATCH.TD24 TRANSDERMA (08:54)
[2020-08-08] MEDS: Docusate Sodium 100 MG CAPSULE PO ×2 (08:54→22:33)
[2020-08-08] MEDS: Milk of Magnesia 30 ML ORAL.SUSP PO (16:49)
[2020-08-08 18:00] VITALS: BP 115/69; PULSE 75; TEMP 36.2
[2020-08-08] MEDS: Magnesium Citrate 300 ML SOLUTION PO (18:38)
[2020-08-08] MEDS: QUEtiapine Fumarate 50 MG TABLET PO (22:33)
[2020-08-09] MEDS: Omeprazole 20 MG CAPSULE.DR PO (06:08)
[2020-08-09 06:30] VITALS: BP 103/53; PULSE 74; RESP 16; TEMP 36.2; O2SAT 97
[2020-08-09] MEDS: Docusate Sodium 100 MG CAPSULE PO ×2 (08:14→21:50)
[2020-08-09] MEDS: Nicotine 14 MG PATCH.TD24 TRANSDERMA (08:14)
[2020-08-09] MEDS: polyethylene glycoL 3350 17 GM POWD.PACK 8.5 GM PO (09:03)
--- NOTE | 2020-08-09 09:58 | HO.PSYCHPN ---
Subjective Subjective Date of Service: 08/09/20 Reason For Visit: suicidal behavior Interim History: Better mood today. Has been reflecting on his life and recent events. Playing chess keeps my mind busy . Ct plan. DC Mon Review of Systems Review of Systems ROS unable to be obtained due to altered mental status Mental Status Exam Mental Status Exam Patient Appearance: Disheveled Patient Orientation: Person, Place, Time and Situation Level of Consciousness: Awake Patient Behavior: Guarded, Cooperative and Impulsive Mood Description: Depressed and Anxious Affect Description: Angry Speech Pattern: Clear Memory Description: Intact Diagnostics Vital Signs (24Hr): Vital Signs - 24 hr 08/08/20 18:00 08/09/20 06:30 Temperature 97.2 F 97.1 F Pulse Rate 75 74 Respiratory Rate 16 Blood Pressure 115/69 103/53 L Pulse Oximetry 97 Body Mass Index 40.5 Labs Results: 08/03/20 21:07 08/04/20 01:46 Medications Medications Current Medications Generic Name Dose Route Start Last Admin Trade Name Freq PRN Reason Stop Dose Admin Al Hydroxide/Mg Hydroxide 30 ml 08/04/20 10:20 08/05/20 02:01 Magnesium Hydrox/Alum Hydrox 30 Ml Oral.Susp PO 30 ml Q6H PRN Administration Heartburn/Nausea Albuterol Sulfate 1 puff 08/08/20 14:08 Albuterol Sulfate 90 Mcg 8 Gm Inhaler INHALE RQ4H PRN Wheezing Docusate Sodium 100 mg 08/04/20 21:00 08/09/20 08:14 Docusate Sodium 100 Mg Capsule PO 100 mg BID RADHA Administration Ibuprofen 800 mg 08/06/20 18:06 08/06/20 18:53 Ibuprofen 800 Mg Tablet PO 800 mg TIDWM PRN Administration Pain, Moderate (Pain Scale 4-6 Lorazepam 1 mg 08/05/20 19:06 08/07/20 22:56 Lorazepam 1 Mg Tablet PO 1 mg Q4H PRN Administration anxiety/restlessness Magnesium Hydroxide 30 ml 08/04/20 10:20 08/08/20 16:49 Milk Of Magnesia 30 Ml Oral.Susp PO 30 ml DAILY PRN Administration Constipation Nicotine 14 mg 08/05/20 09:00 08/09/20 08:14 Nicotine 14 Mg Patch.Td24 TRANSDERMA 14 mg DAILY RADHA Administration Nicotine Polacrilex 2 mg 08/04/20 10:20 Nicotine Polacrilex 2 Mg Gum BUCCAL Q2H PRN Nicotine Cravings Nicotine Polacrilex 2 mg 08/08/20 09:03 Nicotine Polacrilex 2 Mg Lozenge BUCCAL Q2H PRN Nicotine Cravings Omeprazole 20 mg 08/05/20 09:00 08/09/20 06:08 Omeprazole 20 Mg Capsule.Dr PO 20 mg DAILY@0630 RADHA Administration Polyethylene Glycol 8.5 gm 08/04/20 11:16 08/09/20 09:03 Polyethylene Glycol 3350 17 Gm Powd.Pack PO 8.5 gm DAILY PRN Administration Constipation Quetiapine Fumarate 50 mg 08/07/20 00:15 08/08/20 22:33 Quetiapine Fumarate 50 Mg Tablet PO 50 mg BEDTIME RADHA Administration Trazodone HCl 50 mg 08/04/20 10:20 Trazodone Hcl 50 Mg Tablet PO BEDTIME PRN Insomnia Allergies Allergies Allergy/AdvReac Type Severity Reaction Status Date / Time No Known Allergies Allergy Verified 08/03/20 15:05 [No Known Allergies*] Assessment & Plan Assessment & Plan (1) Depression: Status: Resolved Code(s): F32.9 - Major depressive disorder, single episode, unspecified (2) Suicidal ideation: Status: Resolved Code(s): R45.851 - Suicidal ideations Assessment and Plan: Hold benadryl/vistaril. Ct Seroquel given agitation Group therapy. q5 w LBR. Greater than 50% of the session was spent on counseling and/or coordination of care
[2020-08-09 21:00] VITALS: BP 133/62; PULSE 72; TEMP 36.4
[2020-08-09] MEDS: Ibuprofen 800 MG TABLET PO (21:09)
[2020-08-09] MEDS: QUEtiapine Fumarate 50 MG TABLET PO (21:50)
[2020-08-09] MEDS: LORazepam 1 MG TABLET PO (23:47)
[2020-08-10] MEDS: Omeprazole 20 MG CAPSULE.DR PO (05:59)
[2020-08-10 06:25] VITALS: BP 96/50; PULSE 60; RESP 18; TEMP 36.9; O2SAT 98
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
[2020-08-10] MEDS: Docusate Sodium 100 MG CAPSULE PO (09:02)
[2020-08-10] MEDS: polyethylene glycoL 3350 17 GM POWD.PACK 8.5 GM PO (09:21)
[2020-08-10] MEDS: Nicotine 14 MG PATCH.TD24 TRANSDERMA (09:23)
== END 2020-08-10 13:31 | disposition home or self-care (01) | DRG 754 ==
LOC: HO.ED 08-04 10:17 → HO.PM5 08-04 11:00
PROVIDERS: Emergency Medicine; Admitting Provider Psychiatry & Neurology Psychiatry; Emergency Provider Internal Medicine; PCP Nurse Practitioner Primary Care; Visit Provider Psychiatry & Neurology Psychiatry
DX: F32.9 Major depressive disorder, single episode, unspecified (principal); R45.851 Suicidal ideations; R33.9 Retention of urine, unspecified; E87.6 Hypokalemia; T43.592A Poisoning by other antipsychotics and neuroleptics, intentional self-harm, initial encounter; R33.0 Drug induced retention of urine; Y92.9 Unspecified place or not applicable; F19.10 Other psychoactive substance abuse, uncomplicated; Z20.828 Contact with and (suspected) exposure to other viral communicable diseases; Z79.899 Other long term (current) drug therapy
CPT/HCPCS: 36415; 80048; 80053; 80076; 80307; 80320; 82009; 82803; 83690; 83735; 85025; 85610; 85730; 87635; 93005; 96365; 96366; 96367; 96375; 96376; 99223; 99232; 99239; 99285; 99291; G0480; J3475

== ENCOUNTER 2020-08-12 10:47 | Emergency (ER) | payer MEDICAID, SELFPAY ==
[2020-08-12 11:10] VITALS: BP 139/75; PULSE 78; RESP 18; TEMP 35.9; O2SAT 99; BMI 34.2
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
[2020-08-12] MEDS: predniSONE 20 MG TABLET 60 MG PO (11:44)
[2020-08-12] MEDS: Albuterol Sulfate (0.083%) 2.5 MG/3 ML VIAL.NEB INHALE (11:45)
[2020-08-12 11:48] VITALS: PULSE 73; O2SAT 99
[2020-08-12 12:13] VITALS: BP 120/54; PULSE 77; RESP 16; TEMP 36.6; O2SAT 98
== END 2020-08-12 12:20 | disposition home or self-care (01) ==
PROVIDERS: Emergency Provider Emergency Medicine; PCP Nurse Practitioner Primary Care
DX: J45.901 Unspecified asthma with (acute) exacerbation (principal); Z77.22 Contact with and (suspected) exposure to environmental tobacco smoke (acute) (chronic)
CPT/HCPCS: 71045; 94640; 99283; 99285

== ENCOUNTER 2020-08-19 22:50 | Emergency (ER) | payer MEDICAID, SELFPAY ==
[2020-08-19 22:54] VITALS: BP 133/70; PULSE 78; RESP 20; TEMP 36.2; O2SAT 99
--- NOTE | 2020-08-19 23:04 | ED.PSYCH ---
HPI - Psych General Chief Complaint: Psychiatric Symptoms <Audrey Jonas MD - Last Filed: 08/19/20 23:09> Stated Complaint: SI W/PLAN <Audrey Jonas MD - Last Filed: 08/19/20 23:09> Time Seen by Provider: 08/19/20 23:02 <Audrey Jonas MD - Last Filed: 08/19/20 23:09> Source: patient, EMS and police <Audrey Jonas MD - Last Filed: 08/19/20 23:09> Mode of arrival: EMS <Audrey Jonas MD - Last Filed: 08/19/20 23:09> Limitations: other (Patient is refusing to talk to the ED staff.) <Audrey Jonas MD - Last Filed: 08/19/20 23:09> History of Present Illness HPI Narrative: 45-year-old male with history of depression and suicidal ideation with attempt, patient brought in by police as [place] [address] after an attempt of jumping of the bridge, patient emergency department is calm but refusing to talk to the ED staff, patient only want to talk to Lacey (a nurses at ). Patient had several presentation to the emergency department with similar presentation patient sometimes get agitated and belligerent. <Audrey Jonas MD - Last Filed: 08/19/20 23:09> Related Data Home Medications: Previous Rx's Medication Instructions Recorded albuterol sulfate [Ventolin HFA] 1 puff INHALATION RQ4H PRN 30 Days 08/09/20 #1 g docusate sodium 100 mg PO BID 30 Days #60 cap 08/09/20 hydroxyzine HCl 50 mg PO BID PRN 30 Days #45 tab 08/09/20 pantoprazole 20 mg PO DAILY 30 Days #30 tab 08/09/20 polyethylene glycol 3350 8.5 g PO DAILY PRN 30 Days #330 ea 08/09/20 quetiapine [Seroquel] 50 mg PO BEDTIME PRN 30 Days #30 08/09/20 tab prednisone 40 mg PO DAILY 4 Days #8 tab 08/12/20 <Audrey Jonas MD - Last Filed: 08/19/20 23:09> Allergies/Adverse Reactions: Allergies Allergy/AdvReac Type Severity Reaction Status Date / Time No Known Allergies Allergy Verified 08/12/20 11:18 [No Known Allergies*] <Audrey Jonas MD - Last Filed: 08/19/20 23:09> Review of Systems Review of Systems: Yes Unobtainable due to mental status <Audrey Jonas MD - Last Filed: 08/19/20 23:09> [facility] Past Medical History Medical History: Medical History Asthma Bowel obstruction Difficulty sleeping Polysubstance abuse Suicide attempt <Audrey Jonas MD - Last Filed: 08/19/20 23:09> Social History Social History: Social History Household Members: Friend(s) Housing: Apartment Alcohol intake: former Smoking Status: Former smoker Tobacco Type: Cigarette Cigarettes Per Day: 4 Second Hand Smoke Exposure: Yes Substance Use Type: Amphetamines, Crack/Cocaine and Prescription Drugs Advance Directives: No Advance Directives Information Provided: No service: No Sexual orientation: Straight/Heterosexual <Audrey Jonas MD - Last Filed: 08/19/20 23:09> Physical Exam Vital Signs: Vital Signs: Last Vital Signs Temp 98.1 F 08/20/20 09:15 Pulse 86 08/20/20 09:15 Resp 20 08/19/20 22:54 BP 118/76 08/20/20 09:15 Pulse Ox 96 08/20/20 09:15 Body Mass Index 31.9 Vital signs have been reviewed as normal and appeared to be correct. Blood pressure in the high range. Heart rate normal. Respiration rate normal. Temperature normal. Oxygen saturation normal. <Audrey Jonas MD - Last Filed: 08/19/20 23:09> Vital Signs: Last Vital Signs Temp 98.1 F 08/20/20 09:15 Pulse 86 08/20/20 09:15 Resp 20 08/19/20 22:54 BP 118/76 08/20/20 09:15 Pulse Ox 96 08/20/20 09:15 Body Mass Index 31.9 <COOKIE Bhatti - Last Filed: 08/20/20 10:40> Appearance: Alert. Oriented X3. No acute distress. Head: Normal external exam. Normocephalic. Atraumatic. No Rashid signs noted. No raccoon eyes noted Eyes: PERRLA. EOMI. Conjunctiva and sclera normal. Eyelids normal. ENT: EAC normal. TM's Normal. Pharynx normal. Uvula midline. Moist mucous membranes. No trismus noted. No drooling noted. No muffled voice noted. Neck: Normal inspection. Neck supple. FROM. No adenopathy. Thyroid Normal. No meningeal signs. No neck mass noted. CVS: Normal heart rate and rhythm. Heart sound normal. No murmurs noted. Pulses normal throughout. Respiratory: No respiratory distress. Painless inspiration. Breath sounds normal. No wheezes/rales/rhonchi noted. Chest nontender. No accessory muscle usage noted or decreased air movement noted. Abdomen: Soft and nontender. Bowel sounds normal in all 4 quadrants. No distention noted. No organomegaly noted. No visible injury noted. Back: No CVA tenderness. Full range of motion noted. Skin: Skin warm and dry. Normal skin color. Normal skin turgor. No rashes/lesions/lacerations noted. Extremities: No lower extremity edema. Extremities exhibit normal range of motion. Extremities nontender. Neuro: Oriented X 3. No motor deficit. No sensory deficit. Reflexes normal. <Audrey Jonas MD - Last Filed: 08/19/20 23:09> Course Reevaluation(s) Reevaluation #1: Patient presently not in any distress. Patient awaiting [facility] evaluation. <COOKIE Bhatti - Last Filed: 08/20/20 10:40> Time: 10:40 <COOKIE Bhatti - Last Filed: 08/20/20 10:40> MDM - Psych Restraints Face to Face Assessment: Face to Face Assessment: Current Situation: After assessment of the patient, a review of the pertinent medical record and a discussion with nursing staff, I feel the patient requires a restrain intervention. Reaction To: [] Medical Condition: [] Behavioral State: [] Continued Need: [] <Audrey Jonas MD - Last Filed: 08/19/20 23:09> Lab Data Labs: Lab Results 08/20/20 08/20/20 08/20/20 Range/Units 01:28 01:28 05:37 Urine Color YELLOW Urine Appearance CLEAR Urine pH 5.5 (5.0-8.0) Ur Specific [place] 1.020 (1.005-1.025) Urine Protein NEG (NEG-TRACE) MG/DL Urine Glucose (UA) NEG (NEG) MG/DL Urine Ketones >=80 (NEG) MG/DL Urine Blood TRACE (NEG) Urine Nitrite NEG (NEG) Ur Leukocyte Esterase NEG (NEG) Urine RBC 0-2 (0) /HPF Urine WBC 1-4 (0-4) /HPF Ur Squamous Epith Cells 1+ /LPF Urine Bacteria 1+ /LPF Hyaline Casts 0-2 /LPF Urine Opiates Screen Not Detected (Not Detect) Ur Barbiturates Screen Not Detected (Not Detect) Ur Phencyclidine Scrn Not Detected (Not Detect) Ur Amphetamines Screen Not Detected (Not Detect) U Benzodiazepines Scrn Not Detected (Not Detect) Urine Cocaine Screen Not Detected (Not Detect) U Marijuana (THC) Screen Not Detected (Not Detect) Ethyl Alcohol mg/dL COVID-19 (MAN) Negative (Negative) COVID-[facility] Labs Com See Note 08/20/20 Range/Units 05:41 Urine Color Urine Appearance Urine pH (5.0-8.0) Ur Specific [place] (1.005-1.025) Urine Protein (NEG-TRACE) MG/DL Urine Glucose (UA) (NEG) MG/DL Urine Ketones (NEG) MG/DL Urine Blood (NEG) Urine Nitrite (NEG) Ur Leukocyte Esterase (NEG) Urine RBC (0) /HPF Urine WBC (0-4) /HPF Ur Squamous Epith Cells /LPF Urine Bacteria /LPF Hyaline Casts /LPF Urine Opiates Screen (Not Detect) Ur Barbiturates Screen (Not Detect) Ur Phencyclidine Scrn (Not Detect) Ur Amphetamines Screen (Not Detect) U Benzodiazepines Scrn (Not Detect) Urine Cocaine Screen (Not Detect) U Marijuana (THC) Screen (Not Detect) Ethyl Alcohol < 10 mg/dL COVID-19 (MAN) (Negative) COVID-[employer] <Audrey Jonas MD - Last Filed: 08/19/20 23:09> Lab Results 08/20/20 08/20/20 08/20/20 Range/Units 01:28 01:28 05:37 Urine Color YELLOW Urine Appearance CLEAR Urine pH 5.5 (5.0-8.0) Ur Specific [place] 1.020 (1.005-1.025) Urine Protein NEG (NEG-TRACE) MG/DL Urine Glucose (UA) NEG (NEG) MG/DL Urine Ketones >=80 (NEG) MG/DL Urine Blood TRACE (NEG) Urine Nitrite NEG (NEG) Ur Leukocyte Esterase NEG (NEG) Urine RBC 0-2 (0) /HPF Urine WBC 1-4 (0-4) /HPF Ur Squamous Epith Cells 1+ /LPF Urine Bacteria 1+ /LPF Hyaline Casts 0-2 /LPF Urine Opiates Screen Not Detected (Not Detect) Ur Barbiturates Screen Not Detected (Not Detect) Ur Phencyclidine Scrn Not Detected (Not Detect) Ur Amphetamines Screen Not Detected (Not Detect) U Benzodiazepines Scrn Not Detected (Not Detect) Urine Cocaine Screen Not Detected (Not Detect) U Marijuana (THC) Screen Not Detected (Not Detect) Ethyl Alcohol mg/dL COVID-19 (MNA) Negative (Negative) [facility]-[employer] See Note 08/20/20 Range/Units 05:41 Urine Color Urine Appearance Urine pH (5.0-8.0) Ur Specific [place] (1.005-1.025) Urine Protein (NEG-TRACE) MG/DL Urine Glucose (UA) (NEG) MG/DL Urine Ketones (NEG) MG/DL Urine Blood (NEG) Urine Nitrite (NEG) Ur Leukocyte Esterase (NEG) Urine RBC (0) /HPF Urine WBC (0-4) /HPF Ur Squamous Epith Cells /LPF Urine Bacteria /LPF Hyaline Casts /LPF Urine Opiates Screen (Not Detect) Ur Barbiturates Screen (Not Detect) Ur Phencyclidine Scrn (Not Detect) Ur Amphetamines Screen (Not Detect) U Benzodiazepines Scrn (Not Detect) Urine Cocaine Screen (Not Detect) U Marijuana (THC) Screen (Not Detect) Ethyl Alcohol < 10 mg/dL COVID-19 (MAN) (Negative) [facility]-[employer] <COOKIE Bhatti - Last Filed: 08/20/20 10:40> Discharge Plan Discharge Prescriptions: No Action prednisone 20 mg tablet 40 mg PO DAILY 4 Days Qty: 8 RF: 0 albuterol sulfate [Ventolin HFA] 90 mcg/actuation Hfa Aerosol Inhaler 1 puff inhalation RQ4H PRN (Reason: Wheezing) 30 Days Qty: 1 RF: 0 hydroxyzine HCl 50 mg Tablet 50 mg PO BID PRN (Reason: Anxiety) 30 Days Qty: 45 RF: 0 pantoprazole 20 mg Tablet,Delayed Release (Dr/Ec) 20 mg PO DAILY 30 Days Qty: 30 RF: 0 docusate sodium 100 mg Capsule 100 mg PO BID 30 Days Qty: 60 RF: 0 quetiapine [Seroquel] 50 mg Tablet 50 mg PO BEDTIME PRN (Reason: Anxiety) 30 Days Qty: 30 RF: 0 polyethylene glycol 3350 8.5 gram Powder In Packet 8.5 g PO DAILY PRN (Reason: Constipation) 30 Days Qty: 330 RF: 0 <Audrey Jonas MD - Last Filed: 08/19/20 23:09>
[2020-08-19 23:11] VITALS: BP 133/70; BMI 31.9
[2020-08-20] MEDS: LORazepam 1 MG TABLET 2 MG PO (00:20)
[2020-08-20] MEDS: QUEtiapine Fumarate 50 MG TABLET PO (00:20)
--- NOTE | 2020-08-20 00:30 | PC.NURSE ---
Patient finally compliant with jacquard loom card changer, offered medication, accepted Ativan 2 mg and Serequel 50 mg, offered urine sample for RODRIGUEZ, belonging inventoried, currently in room quiet watching TV, [facility] faxed/no available clinician for tonight. no distress reported, will continue to monitor.
[2020-08-20 01:36] LABS: Appearance Urine CLEAR; Color Urine YELLOW; Glucose Urine UA NEG (NEG); Leukocyte Esterase Urine NEG (NEG); Nitrite Urine NEG (NEG); PH 5.5 (5.0-8.0); Urine Blood TRACE (NEG); Urine Ketones >=80 MG/DL (NEG); Urine Protein NEG (NEG-TRACE)
[2020-08-20 01:42] LABS: Bacteria Urine 1+ /LPF; Hyaline Casts Urine 0-2 /LPF; RBC Urine 0-2 /HPF (0); Squamous Epithelial Cell Urine 1+ /LPF
[2020-08-20 01:59] LABS: Amphetamine Screen Urine Not Detected (Not Detect); Barbiturates, Urine Not Detected (Not Detect); Benzodiazepines Screen Urine Not Detected (Not Detect); Cannabinoid Screen Urine Not Detected (Not Detect); Cocaine Screen Urine Not Detected (Not Detect); Opiate Screen Urine Not Detected (Not Detect); Phencyclidine Screen Urine Not Detected (Not Detect)
[2020-08-20 06:05] LABS: COVID-19 Test Negative (Negative)
[2020-08-20 06:08] LABS: Ethanol < 10 mg/dL
--- NOTE | 2020-08-20 07:10 | PC.NURSE ---
Report received. PT currently resting, denies complaints. PT waiting to be seen by N.
[2020-08-20] MEDS: LORazepam 1 MG TABLET PO (08:27)
[2020-08-20 09:15] VITALS: BP 118/76; PULSE 86; TEMP 36.7; O2SAT 96
== END 2020-08-20 16:07 | disposition home or self-care (01) ==
PROVIDERS: Internal Medicine; Emergency Provider Emergency Medicine
DX: F32.9 Major depressive disorder, single episode, unspecified (principal); T14.91XA Suicide attempt, initial encounter; F19.10 Other psychoactive substance abuse, uncomplicated; Z20.828 Contact with and (suspected) exposure to other viral communicable diseases; F17.210 Nicotine dependence, cigarettes, uncomplicated; Y93.89 Activity, other specified; Y92.89 Other specified places as the place of occurrence of the external cause; Y99.9 Unspecified external cause status
CPT/HCPCS: 80307; 80320; 81001; 87635; 99284

== ENCOUNTER 2020-12-03 14:20 | Emergency (ER) | payer MEDICAID, SELFPAY ==
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
[2020-12-03 14:42] VITALS: BP 125/80; PULSE 66; RESP 16; TEMP 36.9; O2SAT 99; BMI 33.4
[2020-12-03 15:23] LABS: COVID-19 Test Positive (Negative); IDNOW Serial# 9DD0AD1C
== END 2020-12-03 16:09 | disposition left against medical advice (07) ==
PROVIDERS: Emergency Provider Emergency Medicine; PCP Nurse Practitioner Primary Care
DX: U07.1 COVID-19 (principal); R50.9 Fever, unspecified; J45.909 Unspecified asthma, uncomplicated; Z79.899 Other long term (current) drug therapy
CPT/HCPCS: 36415; 71045; 87635; 99282; 99283

== ENCOUNTER 2020-12-18 11:31 | Emergency (ER) | payer MEDICAID, SELFPAY ==
--- NOTE | ~2020-12-18 | CT_ITS ---
EXAMINATION: CT ABDOMEN AND PELVIS WITHOUT CONTRAST CLINICAL INFORMATION: Right-sided abdominal pain and tenderness. History of small bowel obstruction COMPARISON: CT scan abdomen pelvis 03/25/2020. Ultrasound of abdomen 12/18/2020 TECHNIQUE: Multidetector volumetric imaging was performed from the superior aspect of the liver through the pubic symphysis. Sagittal and coronal reformatted images were obtained on the technologist's workstation. This CT examination was performed using dose optimization techniques as appropriate, variously including the following: *Automated exposure control *Adjustment of mA and/or kV according to patient size (this includes techniques or standardized protocols for targeted exams where dose is matched to indication/reason for exam; i.e. extremities or head) *Use of iterative reconstruction technique DLP: 855 mGy-cm FINDINGS: LUNG BASES: The visualized lung bases are unremarkable. LIVER, GALLBLADDER, AND BILIARY TREE: The liver is normal in size, shape, and attenuation. No focal hepatic lesion or biliary ductal dilatation is present. The gallbladder is unremarkable with no evidence of radiopaque gallstones, gallbladder wall thickening, or obvious pericholecystic inflammatory changes. PANCREAS: Unremarkable. SPLEEN: Unremarkable. ADRENAL GLANDS: Unremarkable. KIDNEYS AND URETERS: The kidneys are normal in size, shape, and attenuation. No hydronephrosis, hydroureter, or calculi seen. No perinephric stranding. BLADDER: Unremarkable. GASTROINTESTINAL TRACT: There is no acute abnormality. There is no bowel wall thickening /edema. There is no bowel obstruction. There is a moderate volume of stool in the colon. The appendix is normal . Surgical sutures at the mid anterior abdominal cavity small bowel loops. No acute change of the bowel loop. No inflammation in the adjacent mesentery. There is a diverticulum at the cardia of the stomach measuring 4 cm. No surrounding inflammation. There is no hiatal hernia. ABDOMINAL WALL: No significant hernia is appreciated. LYMPH NODES: Normal. VASCULAR: Unremarkable. PELVIC VISCERA: Unremarkable. OSSEOUS STRUCTURES: Unremarkable. CT/CT abdomen pelvis wo con IMPRESSION: No acute abnormality CT scan abdomen and pelvis.
--- NOTE | ~2020-12-18 | XR_ITS ---
EXAMINATION: CHEST 1 VIEW CLINICAL INFORMATION: Right-sided pain. COMPARISON: December 03, 2020. TECHNIQUE: An AP view of the chest is provided. FINDINGS: The cardiac silhouette is not enlarged. The mediastinal and hilar contours are unremarkable. There are neither pleural effusions nor pneumothoraces. There are no consolidations. The osseous structures are stable. XR/XR chest 1V IMPRESSION: No evidence for acute disease.
--- NOTE | ~2020-12-18 | US_ITS ---
EXAMINATION: US ABDOMEN LIMITED CLINICAL INFORMATION: Right upper quadrant pain. COMPARISON: CT abdomen pelvis 03/25/2020 TECHNIQUE: Real-time imaging of the right upper quadrant abdominal viscera. FINDINGS: PANCREAS: The visualized portions of the pancreas are unremarkable but a large portion of the gland is obscured by bowel gas. LIVER: There is marked increased hepatic echogenicity seen consistent with hepatic steatosis. A small 1 cm cyst is noted in the left lobe of the liver. No suspicious solid focal hepatic lesion. There is no intrahepatic biliary duct dilatation seen. GALLBLADDER: The gallbladder is physiologically distended without evidence of stones, polyps, wall thickening or pericholecystic fluid. Echogenic bile is present in the gallbladder and the Estrada's sign is positive as the patient complains of pain when palpated over the gallbladder. COMMON BILE DUCT: Normal in caliber measuring 0.3 cm in diameter. RIGHT KIDNEY: A 1 cm benign simple right renal cyst is noted in the lower pole. No solid renal masses seen. No hydronephrosis. No renal calculi or focal parenchymal lesions. The kidney measures 11.6 cm in maximum dimension. FREE FLUID: None. US/US abdomen limited IMPRESSION: Gallbladder is distended with no stones seen but the patient is quite tender over the gallbladder with positive Estrada's sign. Incidental note made of hepatic steatosis and benign hepatic and right renal cyst. Both of these latter findings were seen on the prior CT scan.
[2020-12-18 11:48] VITALS: BP 125/83; PULSE 72; RESP 18; TEMP 36.8; O2SAT 97; BMI 35.9
[2020-12-18 14:08] LABS: MANUAL DIFF FLAG NO
[2020-12-18 14:12] LABS: Basophils Absolute Auto 0.1 X10*3/uL (0.0-0.2); Basophils Percent Auto 0.5 % (0-2); Eosinophils Absolute Auto 0.8 X10*3/uL (0.0-0.4); Eosinophils Percent Auto 6.5 % (0-4); Hematocrit 46.7 % (42-52); Hemoglobin 15.5 g/dl (14.0-18.0); Imm Gran Abs Auto 0.09 X10*3/uL (0.00-0.03); Imm Gran Pct Auto 0.8 % (0.0-0.4); Lymphocytes Absolute Auto 2.6 X10*3/uL (1.2-4.9); Lymphocytes Percent Auto 22.2 % (20-40); Mean Corpuscular HGB Conc 33.2 g/dl (31.0-36.0); Mean Corpuscular Hemoglobin 29.6 pg (27.0-33.0); Mean Corpuscular Volume 89.3 fL (80-98); Mean Platelet Volume 8.8 fL (9.4-12.4); Monocytes Percent Auto 8.6 % (2-11); Neutrophils Absolute Auto 7.2 X10*3/uL (2.0-8.3); Neutrophils Percent Auto 61.4 % (45-73); Platelet Count 326 X10*3/uL (160-400); Red Blood Count 5.23 X10*6/uL (4.60-5.80); Red Cell Distribution Width 14.1 % (11.0-16.0); White Blood Count 11.7 X10*3/uL (4.8-10.8)
[2020-12-18 14:35] LABS: Alanine Aminotransferase 17 U/L (0-40); Albumin Level 4.1 g/dL (3.5-5.0); Alkaline Phosphatase 66 U/L (39-117); Anion Gap 12 (12-20); Aspartate Amino Transferase 18 U/L (5-37); Bilirubin Total 0.7 mg/dL (0.0-1.0); Blood Urea Nitrogen 12 mg/dL (9-16); Calcium 9.1 mg/dL (8.4-10.2); Carbon Dioxide 28 mmol/L (22-29); Chloride 104 mmol/L (96-108); Creatinine Clr Calc Pharmacy 102.5; Estimated Glomerular Filt Rate > 60; Glucose Random 80 mg/dL (60-115); Lipase 16 U/L (8-78); Potassium 4.8 mmol/L (3.3-5.1); Sodium 139 mmol/L (135-145); Total Protein 7.4 g/dL (6.5-8.0)
--- NOTE | 2020-12-18 15:27 | ECG_ITS ---
Test Reason : CHEST PAIN Blood Pressure : / mmHG Vent. Rate : 064 BPM Atrial Rate : 064 BPM P-R Int : 170 ms QRS Dur : 110 ms QT Int : 408 ms P-R-T Axes : -16 033 057 degrees QTc Int : 420 ms Normal sinus rhythm Normal ECG When compared with ECG of 16-AUG-2020 20:50, Questionable change in QRS duration Referred By: Emeli Tolbert Electronically Signed By:MANSI HUITRON MD
--- NOTE | 2020-12-18 15:29 | ED.ABDPAIN ---
HPI - Abdominal Pain General Chief Complaint: Abdominal Pain Stated Complaint: ABD PAIN Time Seen by Provider: 12/18/20 15:14 Source: patient Mode of arrival: ambulatory Limitations: no limitations History of Present Illness MD elicited complaint: abdominal pain Pertinent past history: none Onset (ago): week(s) (1) Pain Consistency: intermittent Location: RUQ Severity: moderate Quality: stabbing Radiation: epigastric Migration to: no migration Exacerbating factors: nothing Relieving factors: nothing Context: other (did start one night after drinking stefano) Associated symptoms: denies other symptoms Related Data Previous Rx's Medication Instructions Recorded albuterol sulfate [Ventolin HFA] 1 puff INHALATION RQ4H PRN 30 Days 08/09/20 #1 g docusate sodium 100 mg PO BID 30 Days #60 cap 08/09/20 hydroxyzine HCl 50 mg PO BID PRN 30 Days #45 tab 08/09/20 pantoprazole 20 mg PO DAILY 30 Days #30 tab 08/09/20 polyethylene glycol 3350 8.5 g PO DAILY PRN 30 Days #330 ea 08/09/20 quetiapine [Seroquel] 50 mg PO BEDTIME PRN 30 Days #30 08/09/20 tab prednisone 40 mg PO DAILY 4 Days #8 tab 08/12/20 Allergies Allergy/AdvReac Type Severity Reaction Status Date / Time No Known Allergies Allergy Verified 12/03/20 14:44 [No Known Allergies*] Review of Systems Review of Systems Constitutional : No Weight loss, No Fever, No Chills ENT/Mouth : No sore throat, No Rhinorrhea Eyes: No Swelling, No Redness Cardiovascular : No Chest Pain, No SOB, NoEdema Respiratory : No Cough, No Sputum, No Wheezing Gastrointestinal : no Nausea, no Vomiting, no Diarrhea, positive abdominal Pain, No Hematochezia, No Melena Genitourinary : No Dysuria, No Urinary Frequency, No Hematuria, No Urgency Musculoskeletal : No joint pain, No Myalgias, No Joint Swelling Skin : No Skin Lesions, No rash Neuro : No Weakness, No Numbness, No Dizziness, No Headache Psych : No Anxiety/Panic, No Depression Heme/Lymph: No Bruising, No Lymphadenopathy Endocrine : No Polyuria, No Polydipsia All other systems reviewed and are negative. Physical Exam Vital Signs: Vital Signs: Last Vital Signs Temp 98.3 F 12/18/20 11:48 Pulse 72 12/18/20 11:48 Resp 18 12/18/20 11:48 BP 125/83 12/18/20 11:48 Pulse Ox 97 12/18/20 11:48 Body Mass Index 35.9 Appearance: Alert. Oriented X3. No acute distress. Eyes: Pupils equal, round and reactive to light. ENT: Pharynx normal. Neck: Normal inspection. Neck supple. CVS: Normal heart rate and rhythm. Pulses normal. Respiratory: No respiratory distress. Breath sounds normal. Abdomen: Soft and moderate RUQ ttp with no rebound or guarding, + chadwick's sign Skin: Skin warm and dry. Normal skin color. Normal skin turgor. Extremities: No lower extremity edema. No calf ttp Neuro: Oriented X 3. No motor deficit. No sensory deficit. Course Course Course Narrative: signed out to Katheryn Fuentes pending US MDM - Abdominal Pain MDM Narrative Medical decision making narrative: 45 yo male with hx of asthma bowel obstruction several years ago notes 1 week of RUQ pain after drinking stefano no associated n/v/d, + bowel movements and flatus - no GIB symptoms, no fevers, feels different from his prior SBO which was LLQ at this time will need labs, IVF, IV morphine for pain, US to evaluate for RUQ pain and biliary colic. Lab Data Result diagrams: 12/18/20 13:45 12/18/20 13:45 Labs: Lab Results 12/18/20 12/18/20 12/18/20 Range/Units 13:45 13:45 13:45 WBC 11.7 H (4.8-10.8) X10*3/uL RBC 5.23 (4.60-5.80) X10*6/uL Hgb 15.5 (14.0-18.0) g/dl Hct 46.7 (42-52) % MCV 89.3 (80-98) fL MCH 29.6 (27.0-33.0) pg MCHC 33.2 (31.0-36.0) g/dl RDW 14.1 (11.0-16.0) % Plt Count 326 (160-400) X10*3/uL MPV 8.8 L (9.4-12.4) fL Immature Gran % (Auto) 0.8 H (0.0-0.4) % Neut % (Auto) 61.4 (45-73) % Lymph % (Auto) 22.2 (20-40) % [place] % (Auto) 8.6 (2-11) % Eos % (Auto) 6.5 H (0-4) % Baso % (Auto) 0.5 (0-2) % Lymph # (Auto) 2.6 (1.2-4.9) X10*3/uL [place] # (Auto) 1.0 (0.1-1.2) X10*3/uL Eos # (Auto) 0.8 H (0.0-0.4) X10*3/uL Baso # (Auto) 0.1 (0.0-0.2) X10*3/uL Abs Immat Gran (auto) 0.09 H (0.00-0.03) X10*3/uL Absolute Neuts (auto) 7.2 (2.0-8.3) X10*3/uL Absolute Nucleated RBC 0.000 (0.0-0.012) X10*3/uL Nucleated RBC % (auto) 0.0 (0.0-0.2) /100WBC Hold Blue Top SEE NOTE Sodium 139 (135-145) mmol/L Potassium 4.8 (3.3-5.1) mmol/L Chloride 104 (96-108) mmol/L Carbon Dioxide 28 (22-29) mmol/L Anion Gap 12 (12-20) BUN 12 (9-16) mg/dL Creatinine 1.09 (0.5-1.4) mg/dL Estim Creat Clear Calc 102.5 Estimated GFR > 60 Random Glucose 80 (60-115) mg/dL Calcium 9.1 D (8.4-10.2) mg/dL Total Bilirubin 0.7 (0.0-1.0) mg/dL AST 18 (5-37) U/L ALT 17 (0-40) U/L Alkaline Phosphatase 66 D (39-117) U/L Total Protein 7.4 (6.5-8.0) g/dL Albumin 4.1 (3.5-5.0) g/dL Lipase 16 (8-78) U/L ECG Data Attestation: I personally reviewed and interpreted this ECG as follows: ECG interpretation date: 12/18/20 ECG interpretation time: 16:12 Interpretation: Rate: 64 Rhythm: NSR [place]: normal Normal P waves. Normal KIMBERLYN. Normal QRS complex. ST T wave : no ABHIJIT, normal qTC: normal prior studies: no acute ischemia The study has been interpreted contemporaneously by me. . Discharge Plan Discharge Clinical Impression: Abdominal pain Qualifiers: Abdominal location: right upper quadrant Qualified Code(s): R10.11 - Right upper quadrant pain Prescriptions: No Action prednisone 20 mg tablet 40 mg PO DAILY 4 Days Qty: 8 RF: 0 albuterol sulfate [Ventolin HFA] 90 mcg/actuation Hfa Aerosol Inhaler 1 puff inhalation RQ4H PRN (Reason: Wheezing) 30 Days Qty: 1 RF: 0 hydroxyzine HCl 50 mg Tablet 50 mg PO BID PRN (Reason: Anxiety) 30 Days Qty: 45 RF: 0 pantoprazole 20 mg Tablet,Delayed Release (Dr/Ec) 20 mg PO DAILY 30 Days Qty: 30 RF: 0 docusate sodium 100 mg Capsule 100 mg PO BID 30 Days Qty: 60 RF: 0 quetiapine [Seroquel] 50 mg Tablet 50 mg PO BEDTIME PRN (Reason: Anxiety) 30 Days Qty: 30 RF: 0 polyethylene glycol 3350 8.5 gram Powder In Packet 8.5 g PO DAILY PRN (Reason: Constipation) 30 Days Qty: 330 RF: 0 PMFSH Past Medical History Attestation statement: The following information was validated with the patient. Medical History (Updated 12/18/20 @ 16:00 by Emeli Tolbert DO) Asthma Bowel obstruction Difficulty sleeping Polysubstance abuse Suicide attempt Surgical History (Updated 12/18/20 @ 15:57 by Emeli Tolbert DO) Hx of exploratory laparotomy Social History Social History Household Members: Friend(s) Housing: Apartment Alcohol intake: never Smoking Status: Former smoker Tobacco Type: Cigarette Cigarettes Per Day: 4 Smoked in Last 30 Days: No Second Hand Smoke Exposure: Yes Use of substances other than those prescribed or required for medical reasons: No Substance Use Type: Amphetamines, Crack/Cocaine and Prescription Drugs Advance Directives: No Advance Directives Information Provided: No service: No Sexual orientation: Straight/Heterosexual
[2020-12-18] MEDS: ondansetron HCL 4 MG/2 ML VIAL IVPUSH (15:36)
[2020-12-18] MEDS: Morphine Sulfate 4 MG/ML CARTRIDGE IVPUSH (15:36)
[2020-12-18] MEDS: 0.9 % Sodium Chloride 1,000 ML 999 ML IVCONT (15:36)
[2020-12-18] MEDS: Ketorolac Tromethamine 30 MG/ML VIAL IVPUSH (18:27)
== END 2020-12-18 20:51 | disposition home or self-care (01) ==
PROVIDERS: Emergency Provider Emergency Medicine; PCP Nurse Practitioner Primary Care
DX: K29.20 Alcoholic gastritis without bleeding (principal); R10.11 Right upper quadrant pain
CPT/HCPCS: 36415; 71045; 74176; 76705; 80053; 83690; 85025; 93005; 96361; 96374; 96375; 99284; 99285; J1885; J2270; J2405

== ENCOUNTER 2020-12-26 19:42 | Emergency (ER) | payer MEDICAID, SELFPAY ==
--- NOTE | ~2020-12-26 | CT_ITS ---
EXAMINATION: CT HEAD WITHOUT CONTRAST CLINICAL INFORMATION: Headache post cocaine use. COMPARISON: 05/12/2017 TECHNIQUE: Contiguous axial imaging was performed from the skull base to vertex without intravenous contrast. This CT examination was performed using dose optimization techniques as appropriate, variously including the following: * Automated exposure control * Adjustment of mA and/or kV according to patient size (this includes techniques or standardized protocols for targeted exams where dose is matched to indication/reason for exam; i.e. extremities or head) Use of iterative reconstruction technique DLP: 880 mGy-cm. FINDINGS: There is no evidence of acute intracranial hemorrhage or territorial infarction. No abnormal mass effect or midline shift is seen. Sanders to white matter differentiation is well preserved. No extra-axial fluid collections are identified. No hydrocephalus. No significant volume loss. There is no abnormal attenuation within the brain parenchyma. The osseous structures and soft tissues are normal. Mild opacification of the ethmoid air cells. The mastoid air cells and visualized portions of the paranasal sinuses are otherwise well aerated. CT/CT head/brain wo con IMPRESSION: No acute intracranial pathology.
--- NOTE | 2020-12-26 19:50 | ECG_ITS ---
Test Reason : OVERDOSE Blood Pressure : / mmHG Vent. Rate : 077 BPM Atrial Rate : 077 BPM P-R Int : 156 ms QRS Dur : 096 ms QT Int : 396 ms P-R-T Axes : 022 046 058 degrees QTc Int : 448 ms Normal sinus rhythm Nonspecific T wave abnormality Abnormal ECG When compared to the previous EKG of 18 december 2020 , Nonspecific ST and T wave abnormality present Referred By: Emeli Tolbert Electronically Signed By:OSCAR CARDENAS
--- NOTE | 2020-12-26 19:52 | ED.OVERDOSE ---
HPI - Overdose General Chief Complaint: Overdose Stated Complaint: od/crisis Time Seen by Provider: 12/26/20 19:46 Source: patient, EMS and old records reviewed Mode of arrival: EMS Limitations: altered mental status History of Present Illness HPI Narrative: 45 yo male with asthma, gastritis, overdoses in the past - patient took cocaine, 20 tylenol PM, 10 benadryl, 4 or 5 percocet - patient's story has changed on what and when he took pills to one RN he took 1 week ago, told EMS it was this afternoon, told another RN it was one week ago - patient doesn't say much other than asking for MD complaint: intentional overdose Onset (ago): unknown Intent: suicide attempt How Overdose Was Discovered: called 911 Context: Intentional Overdose: relationship problems Associated symptoms: depression Treatments Prior to Arrival: none Related Data Previous Rx's Medication Instructions Recorded albuterol sulfate [Ventolin HFA] 1 puff INHALATION RQ4H PRN 30 Days 08/09/20 #1 g docusate sodium 100 mg PO BID 30 Days #60 cap 08/09/20 hydroxyzine HCl 50 mg PO BID PRN 30 Days #45 tab 08/09/20 pantoprazole 20 mg PO DAILY 30 Days #30 tab 08/09/20 polyethylene glycol 3350 8.5 g PO DAILY PRN 30 Days #330 ea 08/09/20 quetiapine [Seroquel] 50 mg PO BEDTIME PRN 30 Days #30 08/09/20 tab prednisone 40 mg PO DAILY 4 Days #8 tab 08/12/20 paplxhlivx-pzgjgdrzsxere-vgvi 1 cap PO Q8H PRN #14 cap 12/18/20 [Fioricet] pantoprazole [Protonix] 40 mg PO DAILY #14 tab 12/18/20 sucralfate [Carafate] 1 g PO BID #30 tab 12/18/20 Allergies Allergy/AdvReac Type Severity Reaction Status Date / Time No Known Allergies Allergy Verified 12/26/20 20:17 [No Known Allergies*] Review of Systems Review of Systems: ROS unable to be obtained due to altered mental status PMFSH Past Medical History Attestation statement: The following information was validated with the patient. Medical History Asthma Bowel obstruction Difficulty sleeping Polysubstance abuse Suicide attempt Surgical History Hx of exploratory laparotomy Social History Social History Household Members: Friend(s) Housing: Apartment Alcohol intake: never Smoking Status: Former smoker Tobacco Type: Cigarette Cigarettes Per Day: 4 Second Hand Smoke Exposure: Yes Substance Use Type: Amphetamines, Crack/Cocaine and Prescription Drugs Advance Directives: No Advance Directives Information Provided: Yes service: No Sexual orientation: Straight/Heterosexual Physical Exam Vital Signs: Vital Signs: Last Vital Signs Temp 97.6 F 12/26/20 23:41 Pulse 66 12/26/20 23:41 Resp 15 12/26/20 23:41 BP 132/87 12/26/20 23:41 Pulse Ox 96 12/26/20 23:41 Oxygen Flow Rate 2 12/26/20 20:08 Body Mass Index 33.4 Appearance: Alert. Oriented X3. Anxious, mild acute distress, does nod off unless you talk to him Eyes: Pupils equal, round and reactive to light. ENT: Pharynx normal. R nares scant runny nose and mild bleeding noted no head trauma suspect site of cocaine Neck: Normal inspection. Neck supple. CVS: Normal heart rate and rhythm. Pulses normal. Respiratory: No respiratory distress. Breath sounds normal. Abdomen: Soft and nontender. Skin: Skin warm and diaphoretic Normal skin color. Normal skin turgor. Extremities: No lower extremity edema. No calf ttp Neuro: Oriented X 3. No motor deficit. No sensory deficit. Course Course Course Narrative: LFTs, tylenol and ASA negative will repeat levels in 4 hours - POISON CONTROL aware and agrees with plan 1041pm patient answering questions at this time, did c/o SI patient c/o headache now - did use cocaine will obtain CT head to r/o ICH head CT negative Patient placed in physician observation at 1202am. The indication for observation is that the patient needs more time to see if their overdose improves or they will need to be admitted although I suspect he will clear and need N consult. At this time the patient is well developed well nourished, lungs clear, CV RRR, abd nontender, neuro is intact. GCS 15. repeat chemistry and LFTs normal, no level of ASA and APAP signed out pending N eval and improvement from overdose MDM - Overdose MDM Narrative Medical decision making narrative: 45 yo male with asthma, gastritis, overdoses in the past - patient took cocaine, 20 tylenol PM, 10 benadryl, 4 or 5 percocet - patient's story has changed on what and when he took pills to one RN he took 1 week ago, told EMS it was this afternoon, told another RN it was one week ago - patient doesn't say much other than asking for . History of similar presentation in the past - will need tox labs, EKG, IVF, narcan IN for possible opiate overdose though I suspect his issues might be related to benadryl, medina placed as well hx of retention with these medications Lab Data Result diagrams: 12/26/20 20:28 12/27/20 00:33 Labs: Lab Results 12/26/20 12/26/20 12/26/20 Range/Units 19:59 19:59 20:28 WBC 21.4 H (4.8-10.8) X10*3/uL RBC 4.81 (4.60-5.80) X10*6/uL Hgb 14.4 (14.0-18.0) g/dl Hct 42.7 (42-52) % MCV 88.8 (80-98) fL MCH 29.9 (27.0-33.0) pg MCHC 33.7 (31.0-36.0) g/dl RDW 13.9 (11.0-16.0) % Plt Count 260 (160-400) X10*3/uL MPV 8.9 L (9.4-12.4) fL Immature Gran % (Auto) 0.6 H (0.0-0.4) % Neut % (Auto) 78.5 H (45-73) % Lymph % (Auto) 9.3 L (20-40) % [place] % (Auto) 10.1 (2-11) % Eos % (Auto) 1.2 (0-4) % Baso % (Auto) 0.3 (0-2) % Lymph # (Auto) 2.0 (1.2-4.9) X10*3/uL [place] # (Auto) 2.2 H (0.1-1.2) X10*3/uL Eos # (Auto) 0.3 (0.0-0.4) X10*3/uL Baso # (Auto) 0.1 (0.0-0.2) X10*3/uL Abs Immat Gran (auto) 0.12 H (0.00-0.03) X10*3/uL Absolute Neuts (auto) 16.8 H (2.0-8.3) X10*3/uL Absolute Nucleated RBC 0.000 (0.0-0.012) X10*3/uL Nucleated RBC % (auto) 0.0 (0.0-0.2) /100WBC Smear Tech's Comments VERIFIED PT (10.8-13.0) SEC INR (0.9-1.1) APTT (24.1-38.0) SEC VBG pH (7.32-7.43) VBG pCO2 mmHg VBG pO2 mmHg VBG HCO3 (22-26) mmol/L VBG O2 Saturation % VBG Base Excess mmol/L Sodium (135-145) mmol/L Potassium (3.3-5.1) mmol/L Chloride (96-108) mmol/L Carbon Dioxide (22-29) mmol/L Anion Gap (12-20) BUN (9-16) mg/dL Creatinine (0.5-1.4) mg/dL Estim Creat Clear Calc Estimated GFR Random Glucose (60-115) mg/dL Calcium (8.4-10.2) mg/dL Magnesium (1.6-2.6) mg/dL Total Bilirubin (0.0-1.0) mg/dL Direct Bilirubin (0.0-0.5) mg/dL AST (5-37) U/L ALT (0-40) U/L Alkaline Phosphatase (39-117) U/L Total Protein (6.5-8.0) g/dL Albumin (3.5-5.0) g/dL Lipase (8-78) U/L Urine Color YELLOW Urine Appearance CLEAR Urine pH 7.0 (5.0-8.0) Ur Specific [place] 1.010 (1.005-1.025) Urine Protein NEG (NEG-TRACE) MG/DL Urine Glucose (UA) NEG (NEG) MG/DL Urine Ketones NEG (NEG) MG/DL Urine Blood NEG (NEG) Urine Nitrite NEG (NEG) Ur Leukocyte Esterase TRACE H (NEG) Urine RBC 0 (0) /HPF Urine WBC 1-4 (0-4) /HPF Ur Squamous Epith Cells NONE /LPF Urine Bacteria NONE /LPF Salicylates (15-30) mg/dL Urine Opiates Screen Not Detected (Not Detect) Acetaminophen (<30) mcg/mL Ur Barbiturates Screen Not Detected (Not Detect) Ur Phencyclidine Scrn Not Detected (Not Detect) Ur Amphetamines Screen Not Detected (Not Detect) U Benzodiazepines Scrn Not Detected (Not Detect) Urine Cocaine Screen POSITIVE H (Not Detect) U Marijuana (THC) Screen Not Detected (Not Detect) Ethyl Alcohol mg/dL COVID-19 (MAN) (Negative) COVID-19 Clin Com 12/26/20 12/26/20 12/26/20 Range/Units 20:28 20:28 20:28 WBC (4.8-10.8) X10*3/uL RBC (4.60-5.80) X10*6/uL Hgb (14.0-18.0) g/dl Hct (42-52) % MCV (80-98) fL MCH (27.0-33.0) pg MCHC (31.0-36.0) g/dl RDW (11.0-16.0) % Plt Count (160-400) X10*3/uL MPV (9.4-12.4) fL Immature Gran % (Auto) (0.0-0.4) % Neut % (Auto) (45-73) % Lymph % (Auto) (20-40) % [place] % (Auto) (2-11) % Eos % (Auto) (0-4) % Baso % (Auto) (0-2) % Lymph # (Auto) (1.2-4.9) X10*3/uL [place] # (Auto) (0.1-1.2) X10*3/uL Eos # (Auto) (0.0-0.4) X10*3/uL Baso # (Auto) (0.0-0.2) X10*3/uL Abs Immat Gran (auto) (0.00-0.03) X10*3/uL Absolute Neuts (auto) (2.0-8.3) X10*3/uL Absolute Nucleated RBC (0.0-0.012) X10*3/uL Nucleated RBC % (auto) (0.0-0.2) /100WBC Smear Tech's Comments PT 12.9 (10.8-13.0) SEC INR 1.1 (0.9-1.1) APTT 36.5 (24.1-38.0) SEC VBG pH (7.32-7.43) VBG pCO2 mmHg VBG pO2 mmHg VBG HCO3 (22-26) mmol/L VBG O2 Saturation % VBG Base Excess mmol/L Sodium 137 (135-145) mmol/L Potassium 3.9 (3.3-5.1) mmol/L Chloride 100 (96-108) mmol/L Carbon Dioxide 26 (22-29) mmol/L Anion Gap 15 (12-20) BUN 11 (9-16) mg/dL Creatinine 0.98 (0.5-1.4) mg/dL Estim Creat Clear Calc 110.1 Estimated GFR > 60 Random Glucose 105 (60-115) mg/dL Calcium 8.8 (8.4-10.2) mg/dL Magnesium (1.6-2.6) mg/dL Total Bilirubin (0.0-1.0) mg/dL Direct Bilirubin (0.0-0.5) mg/dL AST (5-37) U/L ALT (0-40) U/L Alkaline Phosphatase (39-117) U/L Total Protein (6.5-8.0) g/dL Albumin (3.5-5.0) g/dL Lipase (8-78) U/L Urine Color Urine Appearance Urine pH (5.0-8.0) Ur Specific [place] (1.005-1.025) Urine Protein (NEG-TRACE) MG/DL Urine Glucose (UA) (NEG) MG/DL Urine Ketones (NEG) MG/DL Urine Blood (NEG) Urine Nitrite (NEG) Ur Leukocyte Esterase (NEG) Urine RBC (0) /HPF Urine WBC (0-4) /HPF Ur Squamous Epith Cells /LPF Urine Bacteria /LPF Salicylates (15-30) mg/dL Urine Opiates Screen (Not Detect) Acetaminophen < 1 (<30) mcg/mL Ur Barbiturates Screen (Not Detect) Ur Phencyclidine Scrn (Not Detect) Ur Amphetamines Screen (Not Detect) U Benzodiazepines Scrn (Not Detect) Urine Cocaine Screen (Not Detect) U Marijuana (THC) Screen (Not Detect) Ethyl Alcohol mg/dL COVID-19 (MAN) Negative (Negative) COVID-19 Clin Com See Note 12/26/20 12/26/20 12/26/20 Range/Units 20:28 20:28 20:40 WBC (4.8-10.8) X10*3/uL RBC (4.60-5.80) X10*6/uL Hgb (14.0-18.0) g/dl Hct (42-52) % MCV (80-98) fL MCH (27.0-33.0) pg MCHC (31.0-36.0) g/dl RDW (11.0-16.0) % Plt Count (160-400) X10*3/uL MPV (9.4-12.4) fL Immature Gran % (Auto) (0.0-0.4) % Neut % (Auto) (45-73) % Lymph % (Auto) (20-40) % [place] % (Auto) (2-11) % Eos % (Auto) (0-4) % Baso % (Auto) (0-2) % Lymph # (Auto) (1.2-4.9) X10*3/uL [place] # (Auto) (0.1-1.2) X10*3/uL Eos # (Auto) (0.0-0.4) X10*3/uL Baso # (Auto) (0.0-0.2) X10*3/uL Abs Immat Gran (auto) (0.00-0.03) X10*3/uL Absolute Neuts (auto) (2.0-8.3) X10*3/uL Absolute Nucleated RBC (0.0-0.012) X10*3/uL Nucleated RBC % (auto) (0.0-0.2) /100WBC Smear Tech's Comments PT (10.8-13.0) SEC INR (0.9-1.1) APTT (24.1-38.0) SEC VBG pH 7.43 (7.32-7.43) VBG pCO2 40 mmHg VBG pO2 73 mmHg VBG HCO3 27 H (22-26) mmol/L VBG O2 Saturation 94.0 % VBG Base Excess 2.5 mmol/L Sodium (135-145) mmol/L Potassium (3.3-5.1) mmol/L Chloride (96-108) mmol/L Carbon Dioxide (22-29) mmol/L Anion Gap (12-20) BUN (9-16) mg/dL Creatinine (0.5-1.4) mg/dL Estim Creat Clear Calc Estimated GFR Random Glucose (60-115) mg/dL Calcium (8.4-10.2) mg/dL Magnesium 1.8 (1.6-2.6) mg/dL Total Bilirubin 1.4 H (0.0-1.0) mg/dL Direct Bilirubin 0.5 (0.0-0.5) mg/dL AST 28 D (5-37) U/L ALT 17 (0-40) U/L Alkaline Phosphatase 52 D (39-117) U/L Total Protein 7.0 (6.5-8.0) g/dL Albumin 4.0 (3.5-5.0) g/dL Lipase 10 (8-78) U/L Urine Color Urine Appearance Urine pH (5.0-8.0) Ur Specific [place] (1.005-1.025) Urine Protein (NEG-TRACE) MG/DL Urine Glucose (UA) (NEG) MG/DL Urine Ketones (NEG) MG/DL Urine Blood (NEG) Urine Nitrite (NEG) Ur Leukocyte Esterase (NEG) Urine RBC (0) /HPF Urine WBC (0-4) /HPF Ur Squamous Epith Cells /LPF Urine Bacteria /LPF Salicylates < 5.0 L (15-30) mg/dL Urine Opiates Screen (Not Detect) Acetaminophen (<30) mcg/mL Ur Barbiturates Screen (Not Detect) Ur Phencyclidine Scrn (Not Detect) Ur Amphetamines Screen (Not Detect) U Benzodiazepines Scrn (Not Detect) Urine Cocaine Screen (Not Detect) U Marijuana (THC) Screen (Not Detect) Ethyl Alcohol < 10 mg/dL COVID-19 (MAN) (Negative) COVID-19 Clin Com 12/27/20 Range/Units 00:33 WBC (4.8-10.8) X10*3/uL RBC (4.60-5.80) X10*6/uL Hgb (14.0-18.0) g/dl Hct (42-52) % MCV (80-98) fL MCH (27.0-33.0) pg MCHC (31.0-36.0) g/dl RDW (11.0-16.0) % Plt Count (160-400) X10*3/uL MPV (9.4-12.4) fL Immature Gran % (Auto) (0.0-0.4) % Neut % (Auto) (45-73) % Lymph % (Auto) (20-40) % [place] % (Auto) (2-11) % Eos % (Auto) (0-4) % Baso % (Auto) (0-2) % Lymph # (Auto) (1.2-4.9) X10*3/uL [place] # (Auto) (0.1-1.2) X10*3/uL Eos # (Auto) (0.0-0.4) X10*3/uL Baso # (Auto) (0.0-0.2) X10*3/uL Abs Immat Gran (auto) (0.00-0.03) X10*3/uL Absolute Neuts (auto) (2.0-8.3) X10*3/uL Absolute Nucleated RBC (0.0-0.012) X10*3/uL Nucleated RBC % (auto) (0.0-0.2) /100WBC Smear Tech's Comments PT (10.8-13.0) SEC INR (0.9-1.1) APTT (24.1-38.0) SEC VBG pH (7.32-7.43) VBG pCO2 mmHg VBG pO2 mmHg VBG HCO3 (22-26) mmol/L VBG O2 Saturation % VBG Base Excess mmol/L Sodium 136 (135-145) mmol/L Potassium 3.6 (3.3-5.1) mmol/L Chloride 101 (96-108) mmol/L Carbon Dioxide 28 (22-29) mmol/L Anion Gap 11 L (12-20) BUN 11 (9-16) mg/dL Creatinine 0.85 (0.5-1.4) mg/dL Estim Creat Clear Calc 126.9 Estimated GFR > 60 Random Glucose 111 (60-115) mg/dL Calcium 8.7 (8.4-10.2) mg/dL Magnesium (1.6-2.6) mg/dL Total Bilirubin 1.5 H (0.0-1.0) mg/dL Direct Bilirubin 0.6 H (0.0-0.5) mg/dL AST 27 (5-37) U/L ALT 16 (0-40) U/L Alkaline Phosphatase 48 (39-117) U/L Total Protein 6.4 L (6.5-8.0) g/dL Albumin 3.8 (3.5-5.0) g/dL Lipase (8-78) U/L Urine Color Urine Appearance Urine pH (5.0-8.0) Ur Specific [place] (1.005-1.025) Urine Protein (NEG-TRACE) MG/DL Urine Glucose (UA) (NEG) MG/DL Urine Ketones (NEG) MG/DL Urine Blood (NEG) Urine Nitrite (NEG) Ur Leukocyte Esterase (NEG) Urine RBC (0) /HPF Urine WBC (0-4) /HPF Ur Squamous Epith Cells /LPF Urine Bacteria /LPF Salicylates < 5.0 L (15-30) mg/dL Urine Opiates Screen (Not Detect) Acetaminophen 1 (<30) mcg/mL Ur Barbiturates Screen (Not Detect) Ur Phencyclidine Scrn (Not Detect) Ur Amphetamines Screen (Not Detect) U Benzodiazepines Scrn (Not Detect) Urine Cocaine Screen (Not Detect) U Marijuana (THC) Screen (Not Detect) Ethyl Alcohol mg/dL COVID-19 (MAN) (Negative) COVID-19 Clin Com ECG Data Attestation: I personally reviewed and interpreted this ECG as follows: ECG interpretation date: 12/26/20 ECG interpretation time: 19:53 Interpretation: Rate: 77 Rhythm: NSR [place]: normal Normal P waves. Normal KIMBERLYN. Normal QRS complex. ST T wave : nonspecific no ABHIJIT qTC: normal prior studies: no acute ischemia or sig change has hx of Brugada pattern QRS and qtC shorter today than usual The study has been interpreted contemporaneously by me. . EKG#2 Rate: 62 Rhythm: NSR [place]: normal Normal P waves. Normal KIMBERLYN. Normal QRS complex. ST T wave : nonspecific, no sig change qTC: normal prior studies: no acute ischemia The study has been interpreted contemporaneously by me. . Discharge Plan Discharge Clinical Impression: Suicide attempt by multiple drug overdose Qualifiers: Encounter type: initial encounter Qualified Code(s): T50.912A - Poisoning by multiple unspecified drugs, medicaments and biological substances, intentional self-harm, initial encounter Prescriptions: No Action prednisone 20 mg tablet 40 mg PO DAILY 4 Days Qty: 8 RF: 0 pantoprazole [Protonix] 40 mg tablet,delayed release (DR/EC) 40 mg PO DAILY Qty: 14 RF: 0 khjrcpeorm-ermqzojtlkgwi-xvwm [Fioricet] 50-300-40 mg capsule 1 cap PO Q8H PRN (Reason: pain) Qty: 14 RF: 0 sucralfate [Carafate] 1 gram tablet 1 g PO BID Qty: 30 RF: 0 albuterol sulfate [Ventolin HFA] 90 mcg/actuation Hfa Aerosol Inhaler 1 puff inhalation RQ4H PRN (Reason: Wheezing) 30 Days Qty: 1 RF: 0 hydroxyzine HCl 50 mg Tablet 50 mg PO BID PRN (Reason: Anxiety) 30 Days Qty: 45 RF: 0 pantoprazole 20 mg Tablet,Delayed Release (Dr/Ec) 20 mg PO DAILY 30 Days Qty: 30 RF: 0 docusate sodium 100 mg Capsule 100 mg PO BID 30 Days Qty: 60 RF: 0 quetiapine [Seroquel] 50 mg Tablet 50 mg PO BEDTIME PRN (Reason: Anxiety) 30 Days Qty: 30 RF: 0 polyethylene glycol 3350 8.5 gram Powder In Packet 8.5 g PO DAILY PRN (Reason: Constipation) 30 Days Qty: 330 RF: 0
[2020-12-26] MEDS: 0.9 % Sodium Chloride 1,000 ML 999 ML IVCONT (20:06)
[2020-12-26 20:08] VITALS: BP 118/68; BP 135/92; PULSE 79; PULSE 86; RESP 16; TEMP 37.2; O2SAT 95; O2SAT 98; BMI 33.4
[2020-12-26 20:08] LABS: Glucose Urine UA NEG (NEG); Leukocyte Esterase Urine TRACE (NEG); Nitrite Urine NEG (NEG); UACC Culture Trigger YES; Urine Blood NEG (NEG); Urine Ketones NEG (NEG); Urine Protein NEG (NEG-TRACE)
[2020-12-26 20:09] LABS: Appearance Urine CLEAR; Color Urine YELLOW
[2020-12-26 20:19] LABS: RBC Urine 0 /HPF (0)
[2020-12-26] MEDS: Naloxone HCl Nasal 4 MG SPRAY NOSTRILALT (20:21)
--- NOTE | 2020-12-26 20:23 | PC.NURSE ---
REPORT TAKEN FROM GABE RN- FIRST CONTACT WITH PT. SITTING UP IN BED EYES OPEN A&Ox3,VSS, VAGUE HISTORIAN. REPORTS TAKING MULTIPLE MEDS OVER NUMEROUS DAYS. TYLENOL PM, PERCOCET, BENEDRYL. SOMETIMES 5,10,15 PO AT BEDSIDE FOR SAFETY.
[2020-12-26 20:40] LABS: Basophils Absolute Auto 0.1 X10*3/uL (0.0-0.2); Basophils Percent Auto 0.3 % (0-2); Eosinophils Absolute Auto 0.3 X10*3/uL (0.0-0.4); Eosinophils Percent Auto 1.2 % (0-4); Hematocrit 42.7 % (42-52); Hemoglobin 14.4 g/dl (14.0-18.0); Imm Gran Abs Auto 0.12 X10*3/uL (0.00-0.03); Imm Gran Pct Auto 0.6 % (0.0-0.4); Lymphocytes Percent Auto 9.3 % (20-40); MANUAL DIFF FLAG SCAN; Mean Corpuscular HGB Conc 33.7 g/dl (31.0-36.0); Mean Corpuscular Hemoglobin 29.9 pg (27.0-33.0); Mean Corpuscular Volume 88.8 fL (80-98); Mean Platelet Volume 8.9 fL (9.4-12.4); Monocytes Absolute Auto 2.2 X10*3/uL (0.1-1.2); Monocytes Percent Auto 10.1 % (2-11); Neutrophils Absolute Auto 16.8 X10*3/uL (2.0-8.3); Neutrophils Percent Auto 78.5 % (45-73); Platelet Count 260 X10*3/uL (160-400); Red Blood Count 4.81 X10*6/uL (4.60-5.80); Red Cell Distribution Width 13.9 % (11.0-16.0); SCAN SMEAR FLAG 1; White Blood Count 21.4 X10*3/uL (4.8-10.8)
[2020-12-26 20:47] LABS: Venous Blood Gas Refer to POC result
[2020-12-26 20:47] LABS: VBG Base Excess 2.5 mmol/L; VBG HCO3 27 mmol/L (22-26); VBG pCO2 40 mmHg; VBG pH 7.43 (7.32-7.43); VBG pO2 73 mmHg
[2020-12-26 20:52] LABS: Amphetamine Screen Urine Not Detected (Not Detect); Barbiturates, Urine Not Detected (Not Detect); Benzodiazepines Screen Urine Not Detected (Not Detect); Cannabinoid Screen Urine Not Detected (Not Detect); Cocaine Screen Urine POSITIVE (Not Detect); Opiate Screen Urine Not Detected (Not Detect); Phencyclidine Screen Urine Not Detected (Not Detect)
[2020-12-26 20:54] LABS: INTERNATIONAL NORM RATIO 1.1 (0.9-1.1); Prothrombin Time 12.9 SEC (10.8-13.0)
[2020-12-26 20:56] LABS: COVID-19 Test Negative (Negative)
[2020-12-26 20:57] LABS: Ethanol < 10 mg/dL; Partial Thromboplastin Time 36.5 SEC (24.1-38.0)
[2020-12-26 20:59] LABS: SLIDE REVIEW VERIFIED
[2020-12-26 21:01] LABS: Acetaminophen LAB < 1 mcg/mL (<30); Anion Gap 15 (12-20); Blood Urea Nitrogen 11 mg/dL (9-16); Calcium 8.8 mg/dL (8.4-10.2); Carbon Dioxide 26 mmol/L (22-29); Chloride 100 mmol/L (96-108); Creatinine Clr Calc Pharmacy 110.1; Estimated Glomerular Filt Rate > 60; Glucose Random 105 mg/dL (60-115); Potassium 3.9 mmol/L (3.3-5.1); Sodium 137 mmol/L (135-145)
[2020-12-26 21:14] LABS: Alanine Aminotransferase 17 U/L (0-40); Alkaline Phosphatase 52 U/L (39-117); Aspartate Amino Transferase 28 U/L (5-37); Bilirubin Direct 0.5 mg/dL (0.0-0.5); Bilirubin Total 1.4 mg/dL (0.0-1.0); Lipase 10 U/L (8-78); Magnesium 1.8 mg/dL (1.6-2.6)
[2020-12-26 21:29] LABS: Salicylate < 5.0 mg/dL (15-30)
[2020-12-26] MEDS: Ibuprofen 600 MG TABLET PO (23:38)
[2020-12-26 23:41] VITALS: BP 132/87; PULSE 66; RESP 15; TEMP 36.4; O2SAT 96
--- NOTE | 2020-12-26 23:42 | PC.NURSE ---
PT MEDICATED PER MAR FOR HEADACHE, A&Ox3, SKIN PWD RESPIRATIONS EVEN UNLABORED. AWAITING LAB REDRAW AT 0030 FOR MEDICAL CLEARANCE. AWARE OF PLAN OF CARE. PO REMAINS AT BEDSIDE FOR SAFETY.
[2020-12-27 01:09] LABS: Alanine Aminotransferase 16 U/L (0-40); Albumin Level 3.8 g/dL (3.5-5.0); Alkaline Phosphatase 48 U/L (39-117); Anion Gap 11 (12-20); Aspartate Amino Transferase 27 U/L (5-37); Bilirubin Direct 0.6 mg/dL (0.0-0.5); Bilirubin Total 1.5 mg/dL (0.0-1.0); Blood Urea Nitrogen 11 mg/dL (9-16); Calcium 8.7 mg/dL (8.4-10.2); Carbon Dioxide 28 mmol/L (22-29); Chloride 101 mmol/L (96-108); Creatinine Clr Calc Pharmacy 126.9; Estimated Glomerular Filt Rate > 60; Glucose Random 111 mg/dL (60-115); Potassium 3.6 mmol/L (3.3-5.1); Salicylate < 5.0 mg/dL (15-30); Sodium 136 mmol/L (135-145); Total Protein 6.4 g/dL (6.5-8.0)
[2020-12-27 01:11] LABS: Acetaminophen LAB 1 mcg/mL (<30)
--- NOTE | 2020-12-27 01:13 | ECG_ITS ---
Test Reason : OVERDOSE Blood Pressure : / mmHG Vent. Rate : 062 BPM Atrial Rate : 062 BPM P-R Int : 176 ms QRS Dur : 094 ms QT Int : 422 ms P-R-T Axes : -06 072 074 degrees QTc Int : 428 ms Normal sinus rhythm Normal ECG When compared with ECG of 18-DEC-2020 16:08, No significant change was found Referred By: Emeli Tolbert Electronically Signed By:MANSI HUITRON MD
[2020-12-27 01:37] VITALS: BP 112/70; PULSE 68; RESP 12; O2SAT 97
--- NOTE | 2020-12-27 02:03 | PC.NURSE ---
PT RESTING IN BED EYES CLOSED SKIN PWD RESPIRATIONS EVEN UNLABORED. VSS. PO REMAINS AT BEDSIDE FOR SAFETY.
[2020-12-27 03:46] VITALS: BP 102/71; PULSE 62; RESP 16; O2SAT 95
--- NOTE | 2020-12-27 04:31 | PC.NURSE ---
Patient sleeping at this time. Will continue to monitor. Moved in stretcher to Bed 6 [place] with plan to transfer to POD later this morning. Did not disturb. Sitter remains present.
--- NOTE | 2020-12-27 04:35 | PC.NURSE ---
Faxed/called to [facility]. Per [facility] staff member, states I will check if the fax came and then call you back . Awaiting call back to confirm receipt of faxed paperwork. Pt remains asleep at this time.
[2020-12-27 06:00] VITALS: BP 101/59; PULSE 58; RESP 16; TEMP 36.7; O2SAT 95
--- NOTE | 2020-12-27 06:21 | PC.NURSE ---
Patient awake, ambulating with steady gait. Medina catheter removed, pt voided after medina removal without issue. Security present for relocation from ED Bed 6H to POD 7. Report given to Jayant Dasilva RN. Pt requested and given sandwich, aware that breakfast tray has been ordered also to arrive within the next hour. Denies complaints at this time.
--- NOTE | 2020-12-27 06:28 | PC.NURSE ---
Report received. PT ambulated to pod with steady gait. Calm and cooperative. PT is waiting to be seen by N.
--- NOTE | 2020-12-27 07:08 | PC.NURSE ---
received report on patient's progress from previous overnight nurse, patient appears to be attempting to sleep in group area appears to be resting presently stable and appears in no distress.
[2020-12-27 08:34] VITALS: RESP 17
--- NOTE | 2020-12-27 08:50 | PC.NURSE ---
BHN at bedside for eval
== END 2020-12-27 10:33 | disposition home or self-care (01) ==
PROVIDERS: Emergency Provider Emergency Medicine
DX: T40.5X1A Poisoning by cocaine, accidental (unintentional), initial encounter (principal); T40.2X1A Poisoning by other opioids, accidental (unintentional), initial encounter; T45.0X1A Poisoning by antiallergic and antiemetic drugs, accidental (unintentional), initial encounter; T39.1X1A Poisoning by 4-Aminophenol derivatives, accidental (unintentional), initial encounter; R45.851 Suicidal ideations; R51.9 Headache, unspecified; F14.19 Cocaine abuse with unspecified cocaine-induced disorder; Y92.9 Unspecified place or not applicable; Z79.899 Other long term (current) drug therapy; Z87.891 Personal history of nicotine dependence; Z20.822 Contact with and (suspected) exposure to COVID-19
CPT/HCPCS: 36415; 70450; 80048; 80076; 80143; 80179; 80307; 80320; 81001; 81003; 83690; 83735; 85025; 85610; 85730; 87086; 87635; 93005; 96365; 96375; 99285

== ENCOUNTER → 2021-01-11 08:52 | Outpatient (REF) | payer MEDICAID, SELFPAY ==
--- NOTE | 2021-01-11 09:15 | CA_ITS ---
Acquisition Time: 2021-01-11 09:06:09 Total Exercise Time: 00:09:40 Test Indications: Abnormal ECG Medications: PANTOPRAZOLE PREDNISONE CARAFATE ALBUTEROL HYDROXYZINE Protocol: JOHN PAUL Max HR: 151 BPM 85% of Pred: 176 BPM Max BP: 164/088 mmHG Max Work Load: 11.1 METS Exercise stress test using John Paul protocol, total of 9 min 40 sec. METS 11.10, TAPHR up to 85 %. Pt tolerated well, reports chest thightness with inspiration immediately after exercise, that resolved in recovery. EKG with no arrhythmias, MILD ST changes seen in leads 2,3, and AVF. Normotensive response to exercise. Test reviewed with Dr. Gil. Referred By: Judy Kong Overread By: Margot Thomas NP
== END ==
LOC: HO.CARD 08:52
PROVIDERS: PCP Nurse Practitioner Primary Care
DX: I49.8 Other specified cardiac arrhythmias (principal); R06.02 Shortness of breath
CPT/HCPCS: 93016; 93017; 93018

== ENCOUNTER 2021-01-22 22:28 | Emergency (ER) | payer MEDICAID, SELFPAY ==
--- NOTE | ~2021-01-22 | XR_ITS ---
EXAMINATION: XR CHEST CLINICAL INFORMATION: Chest pain COMPARISON: 12/18/2020 TECHNIQUE: Frontal view of the chest was obtained. FINDINGS: Radiopaque metallic foreign body overlies the right chest wall, unchanged. Slight elevation of the left hemidiaphragm. No consolidation, edema, or effusion. No pneumothorax. The cardiomediastinal silhouette is within normal limits. No acute osseous abnormality. XR/XR chest 1V IMPRESSION: No acute pulmonary finding.
--- NOTE | 2021-01-22 22:38 | ED.PSYCH ---
HPI - Psych General Chief Complaint: Psychiatric Symptoms Stated Complaint: crisis Source: patient and EMS Mode of arrival: EMS Limitations: altered mental status History of Present Illness HPI Narrative: 45-year-old male with past medical history of asthma, polysubstance abuse, and psychiatric history presents via EMS for suicidal ideation, and chest pain. States that he has been using cocaine on regular basis, is having auditory and visual hallucinations, and states to be suicidal. MD complaint: suicidal ideation, substance abuse and hallucinations Onset (ago): unknown Duration: constant History of same: Yes Exacerbating factors: drug use Context: recent drug abuse Associated psychiatric symptoms: depression, suicidal ideation, auditory hallucinations and visual hallucinations If self harm: admits thoughts of self harm Related Data Previous Rx's Medication Instructions Recorded albuterol sulfate [Ventolin HFA] 1 puff INHALATION RQ4H PRN 30 Days 08/09/20 #1 g docusate sodium 100 mg PO BID 30 Days #60 cap 08/09/20 hydroxyzine HCl 50 mg PO BID PRN 30 Days #45 tab 08/09/20 pantoprazole 20 mg PO DAILY 30 Days #30 tab 08/09/20 polyethylene glycol 3350 8.5 g PO DAILY PRN 30 Days #330 ea 08/09/20 quetiapine [Seroquel] 50 mg PO BEDTIME PRN 30 Days #30 08/09/20 tab prednisone 40 mg PO DAILY 4 Days #8 tab 08/12/20 jwbnvwpcod-blkmvidsvxjov-oqld 1 cap PO Q8H PRN #14 cap 12/18/20 [Fioricet] pantoprazole [Protonix] 40 mg PO DAILY #14 tab 12/18/20 sucralfate [Carafate] 1 g PO BID #30 tab 12/18/20 Allergies Allergy/AdvReac Type Severity Reaction Status Date / Time No Known Allergies Allergy Verified 12/26/20 20:17 [No Known Allergies*] Review of Systems Review of Systems: Yes Unobtainable due to mental status PMFSH Past Medical History Attestation statement: The following information was validated with the patient. Source: old records reviewed Medical History Asthma Bowel obstruction Difficulty sleeping Polysubstance abuse Suicide attempt Surgical History Hx of exploratory laparotomy Social History Social History Household Members: Friend(s) Housing: Apartment Do you presently have visiting nurse or other home services: No Alcohol intake: never Cigarettes Per Day: 4 Second Hand Smoke Exposure: Yes Substance Use Type: Amphetamines, Crack/Cocaine and Prescription Drugs Advance Directives: No Advance Directives Information Provided: No service: No Sexual orientation: Straight/Heterosexual Physical Exam Vital Signs: Vital Signs: Last Vital Signs Temp 99.0 F 01/22/21 22:59 Pulse 105 H 01/22/21 22:59 Resp 20 01/22/21 22:59 BP 132/82 01/22/21 22:59 Pulse Ox 98 01/22/21 22:59 Body Mass Index 33.4 Appearance: Alert. Oriented to self. Moderate psychiatric distress. Flat affect, poor eye contact. Eyes: Pupils equal, round and reactive to light. ENT: Pharynx normal. Neck: Normal inspection. Neck supple. CVS: Tachycardic heart rate and rhythm. Pulses normal. Respiratory: No respiratory distress. Breath sounds normal. Abdomen: Soft and nontender. Skin: Skin warm and dry. Normal skin color. Normal skin turgor. Extremities: Moves all extremities against resistance. Gait well balanced well coordinated. Neuro: No motor deficit. No sensory deficit. Course Course Course Narrative: 45-year-old male with past medical history of asthma, polysubstance abuse, in psychiatric history presents via EMS for suicidal ideation, cocaine abuse, and chest pain. Plan of care is to rule out ACS, and order BHN consult. Patient is vague, making poor eye contact, however is polite and cooperative. Chest x-rays negative. White count elevated at 16.3 has had prior elevations, could possibly related to polysubstance abuse. Troponin is 4.1, urinalysis still pending. EKG shows sinus tachycardia without ST depression or elevation, no indication of ischemia at this time. Order for psych consult, patient will be on section 12. MDM - Psych Differential Diagnosis Differential diagnosis: Likely acute psychosis, suicidal ideation, bipolar disorder, depression, drug-induced psychotic disorder, acute anxiety, substance abuse and mood disorder Medical Records Attestation: I reviewed the patient's medical records. Lab Data Attestation: I reviewed the patient's lab results. Result diagrams: 01/22/21 23:45 01/22/21 23:45 Labs: Lab Results 01/22/21 01/22/21 01/22/21 Range/Units 23:45 23:45 23:45 WBC 16.3 H (4.8-10.8) X10*3/uL RBC 4.93 (4.60-5.80) X10*6/uL Hgb 14.9 (14.0-18.0) g/dl Hct 43.9 (42-52) % MCV 89.0 (80-98) fL MCH 30.2 (27.0-33.0) pg MCHC 33.9 (31.0-36.0) g/dl RDW 14.5 (11.0-16.0) % Plt Count 302 (160-400) X10*3/uL MPV 9.1 L (9.4-12.4) fL Immature Gran % (Auto) 0.3 (0.0-0.4) % Neut % (Auto) 76.8 H (45-73) % Lymph % (Auto) 13.3 L (20-40) % [place] % (Auto) 9.1 (2-11) % Eos % (Auto) 0.1 (0-4) % Baso % (Auto) 0.4 (0-2) % Lymph # (Auto) 2.2 (1.2-4.9) X10*3/uL [place] # (Auto) 1.5 H (0.1-1.2) X10*3/uL Eos # (Auto) 0.0 (0.0-0.4) X10*3/uL Baso # (Auto) 0.1 (0.0-0.2) X10*3/uL Abs Immat Gran (auto) 0.05 H (0.00-0.03) X10*3/uL Absolute Neuts (auto) 12.5 H (2.0-8.3) X10*3/uL Absolute Nucleated RBC 0.000 (0.0-0.012) X10*3/uL Nucleated RBC % (auto) 0.0 (0.0-0.2) /100WBC Sodium 138 (135-145) mmol/L Potassium 4.4 D (3.3-5.1) mmol/L Chloride 103 (96-108) mmol/L Carbon Dioxide 21 L (22-29) mmol/L Anion Gap 18 (12-20) BUN 15 (9-16) mg/dL Creatinine 1.24 (0.5-1.4) mg/dL Estim Creat Clear Calc 87.0 Estimated GFR > 60 Random Glucose 107 (60-115) mg/dL Calcium 9.7 D (8.4-10.2) mg/dL Troponin I High Sens (<3.5-35.0) ng/L Ethyl Alcohol < 10 mg/dL 01/22/21 Range/Units 23:45 WBC (4.8-10.8) X10*3/uL RBC (4.60-5.80) X10*6/uL Hgb (14.0-18.0) g/dl Hct (42-52) % MCV (80-98) fL MCH (27.0-33.0) pg MCHC (31.0-36.0) g/dl RDW (11.0-16.0) % Plt Count (160-400) X10*3/uL MPV (9.4-12.4) fL Immature Gran % (Auto) (0.0-0.4) % Neut % (Auto) (45-73) % Lymph % (Auto) (20-40) % [place] % (Auto) (2-11) % Eos % (Auto) (0-4) % Baso % (Auto) (0-2) % Lymph # (Auto) (1.2-4.9) X10*3/uL [place] # (Auto) (0.1-1.2) X10*3/uL Eos # (Auto) (0.0-0.4) X10*3/uL Baso # (Auto) (0.0-0.2) X10*3/uL Abs Immat Gran (auto) (0.00-0.03) X10*3/uL Absolute Neuts (auto) (2.0-8.3) X10*3/uL Absolute Nucleated RBC (0.0-0.012) X10*3/uL Nucleated RBC % (auto) (0.0-0.2) /100WBC Sodium (135-145) mmol/L Potassium (3.3-5.1) mmol/L Chloride (96-108) mmol/L Carbon Dioxide (22-29) mmol/L Anion Gap (12-20) BUN (9-16) mg/dL Creatinine (0.5-1.4) mg/dL Estim Creat Clear Calc Estimated GFR Random Glucose (60-115) mg/dL Calcium (8.4-10.2) mg/dL Troponin I High Sens 4.1 (<3.5-35.0) ng/L Ethyl Alcohol mg/dL Imaging Data Chest x-ray: Attestation: I personally reviewed and interpreted this imaging study as follows: Radiologist's impression: EXAMINATION: XR CHEST CLINICAL INFORMATION: Chest pain COMPARISON: 12/18/2020 TECHNIQUE: Frontal view of the chest was obtained. FINDINGS: Radiopaque metallic foreign body overlies the right chest wall, unchanged. Slight elevation of the left hemidiaphragm. No consolidation, edema, or effusion. No pneumothorax. The cardiomediastinal silhouette is within normal limits. No acute osseous abnormality. XR/XR chest 1V IMPRESSION: No acute pulmonary finding. ECG Data Attestation: I personally reviewed and interpreted this ECG as follows: ECG interpretation date: 01/22/21 ECG interpretation time: 23:27 Interpretation: Vent. rate 104 BPM [place] interval 152 ms QRS duration 88 ms QT/QTc 348/457 ms P-R-T axes 67 14 50 Sinus tachycardia Otherwise normal ECG When compared with ECG of 27-DEC-2020 01:27, Vent. rate has increased BY 42 BPM Questionable change in QRS axis Scores Heart Score History: -1- moderately suspicious ECG: -1- non specific repolarization disturbance Age: -0- < or = 45 Risk factory: -1- 1 or 2 risk factors Troponin: -0- < or = normal limit Score: 3 Risk: 1.7% Discharge Plan Discharge Prescriptions: No Action prednisone 20 mg tablet 40 mg PO DAILY 4 Days Qty: 8 RF: 0 pantoprazole [Protonix] 40 mg tablet,delayed release (DR/EC) 40 mg PO DAILY Qty: 14 RF: 0 lrwdhdapwe-vbegymfrdvlox-slab [Fioricet] 50-300-40 mg capsule 1 cap PO Q8H PRN (Reason: pain) Qty: 14 RF: 0 sucralfate [Carafate] 1 gram tablet 1 g PO BID Qty: 30 RF: 0 albuterol sulfate [Ventolin HFA] 90 mcg/actuation Hfa Aerosol Inhaler 1 puff inhalation RQ4H PRN (Reason: Wheezing) 30 Days Qty: 1 RF: 0 hydroxyzine HCl 50 mg Tablet 50 mg PO BID PRN (Reason: Anxiety) 30 Days Qty: 45 RF: 0 pantoprazole 20 mg Tablet,Delayed Release (Dr/Ec) 20 mg PO DAILY 30 Days Qty: 30 RF: 0 docusate sodium 100 mg Capsule 100 mg PO BID 30 Days Qty: 60 RF: 0 quetiapine [Seroquel] 50 mg Tablet 50 mg PO BEDTIME PRN (Reason: Anxiety) 30 Days Qty: 30 RF: 0 polyethylene glycol 3350 8.5 gram Powder In Packet 8.5 g PO DAILY PRN (Reason: Constipation) 30 Days Qty: 330 RF: 0
[2021-01-22 22:50] VITALS: BP 120/80; PULSE 108; O2SAT 99; BMI 33.4
[2021-01-22 22:59] VITALS: BP 132/82; PULSE 105; RESP 20; TEMP 37.2; O2SAT 98
--- NOTE | 2021-01-22 23:23 | ECG_ITS ---
Test Reason : CHEST PAIN Blood Pressure : / mmHG Vent. Rate : 104 BPM Atrial Rate : 104 BPM P-R Int : 152 ms QRS Dur : 088 ms QT Int : 348 ms P-R-T Axes : 067 014 050 degrees QTc Int : 457 ms Sinus tachycardia Otherwise normal ECG When compared with ECG of 27-DEC-2020 01:27, Vent. rate has increased BY 42 BPM Questionable change in QRS axis Referred By: Kassy Medina Electronically Signed By:OSCAR CARDENAS
[2021-01-22 23:49] LABS: Basophils Absolute Auto 0.1 X10*3/uL (0.0-0.2); Basophils Percent Auto 0.4 % (0-2); Eosinophils Percent Auto 0.1 % (0-4); Hematocrit 43.9 % (42-52); Hemoglobin 14.9 g/dl (14.0-18.0); Imm Gran Abs Auto 0.05 X10*3/uL (0.00-0.03); Imm Gran Pct Auto 0.3 % (0.0-0.4); Lymphocytes Absolute Auto 2.2 X10*3/uL (1.2-4.9); Lymphocytes Percent Auto 13.3 % (20-40); MANUAL DIFF FLAG NO; Mean Corpuscular HGB Conc 33.9 g/dl (31.0-36.0); Mean Corpuscular Hemoglobin 30.2 pg (27.0-33.0); Mean Platelet Volume 9.1 fL (9.4-12.4); Monocytes Absolute Auto 1.5 X10*3/uL (0.1-1.2); Monocytes Percent Auto 9.1 % (2-11); Neutrophils Absolute Auto 12.5 X10*3/uL (2.0-8.3); Neutrophils Percent Auto 76.8 % (45-73); Platelet Count 302 X10*3/uL (160-400); Red Blood Count 4.93 X10*6/uL (4.60-5.80); Red Cell Distribution Width 14.5 % (11.0-16.0); White Blood Count 16.3 X10*3/uL (4.8-10.8)
[2021-01-23 00:09] LABS: Ethanol < 10 mg/dL
[2021-01-23 00:11] LABS: Anion Gap 18 (12-20); Blood Urea Nitrogen 15 mg/dL (9-16); Calcium 9.7 mg/dL (8.4-10.2); Carbon Dioxide 21 mmol/L (22-29); Chloride 103 mmol/L (96-108); Estimated Glomerular Filt Rate > 60; Glucose Random 107 mg/dL (60-115); Potassium 4.4 mmol/L (3.3-5.1); Sodium 138 mmol/L (135-145)
[2021-01-23 00:16] LABS: Troponin-I High Sensitivity 4.1 ng/L (<3.5-35.0)
--- NOTE | 2021-01-23 00:27 | PC.NURSE ---
pt reported chest pressure and ekg done. pt states he was using cocaine to the provider. pt is in a recliner visable to staff and sitter present. pt is in hospital attire and has been unable to give a urine yet.
[2021-01-23 02:00] VITALS: BP 129/80; PULSE 79; RESP 18; O2SAT 98
--- NOTE | 2021-01-23 02:15 | PC.NURSE ---
muscle aches and body pain, sob, chest pressure, fever yesterday, pt states he has been on pills that makes him feel relaxed. He has been on them for a few months, last dose 3 days ago and now pt feels like he has been withdrawing. pt last used cocaine yesterday.
[2021-01-23 02:18] VITALS: BP 129/80; PULSE 81; RESP 16; TEMP 36.8; O2SAT 97
[2021-01-23 03:57] VITALS: BP 106/56; PULSE 76; RESP 20; O2SAT 99
[2021-01-23 04:00] LABS: Glucose Urine UA NEG (NEG); Leukocyte Esterase Urine NEG (NEG); Nitrite Urine NEG (NEG); Specific Gravity - Urine >= 1.030 (1.005-1.025); Urine Blood NEG (NEG); Urine Ketones 5 MG/DL (NEG); Urine Protein TRACE MG/DL (NEG-TRACE)
[2021-01-23 04:03] LABS: Appearance Urine HAZY; Color Urine AMBER; UACC Culture Trigger NO
[2021-01-23 04:24] LABS: Amphetamine Screen Urine Not Detected (Not Detect); Barbiturates, Urine Not Detected (Not Detect); Benzodiazepines Screen Urine Not Detected (Not Detect); Cannabinoid Screen Urine Not Detected (Not Detect); Cocaine Screen Urine POSITIVE (Not Detect); Opiate Screen Urine Not Detected (Not Detect); Phencyclidine Screen Urine Not Detected (Not Detect)
[2021-01-23 04:26] VITALS: BP 93/51; PULSE 71; O2SAT 98
--- NOTE | 2021-01-23 05:12 | PC.NURSE ---
RN to RN report received from Emilie. Pt is calm/cooperative, resting comfortably at this time. Requested and given ham sandwich. Will continue to monitor.
--- NOTE | 2021-01-23 07:00 | PC.NURSE ---
patient appears to be sleeping restfully, respirations even and unlabored, patient appears in no distress.
--- NOTE | 2021-01-23 08:39 | PM.PSYCN ---
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 The patient reported that yesterday had a bad day and he abused of cocaine. He later complained of visual and auditory hallucinations and he was brought to the ED. During the interview, he adamantly denied suicidal or homicidal ideation, he denied hallucinations or paranoia at the moment of the interview and historically, he admitted that when he takes too much cocaine , he has visual hallucinations and increased paranoia. He stated that he is safe at his home and he has good social support. He admitted that currently, he doesn't have psychiatric providers, he used to go to a local clinic and asked for outpatient referral. Past Psychiatric History: X hospitalizations: APTU/M5. States starting program at [facility] Medical Evaluation Reviewed: Yes Review of Systems Review of Systems Yes all other systems are reviewed and are negative [facility] Medical History (Updated 01/23/21 @ 08:47 by Pool Dietrich) Asthma Bowel obstruction Difficulty sleeping Polysubstance abuse Suicide attempt Surgical History Hx of exploratory laparotomy Family History: None Social History: , frequent friction, upset bc he was talking to a girl , lives in own apt. Not employed Trauma History: Childhood Jennifer : physical/emotional Diagnostics Vital Signs (24Hr): Vital Signs - 24 hr 01/22/21 22:59 01/23/21 02:00 01/23/21 02:18 Temperature 99.0 F 98.3 F Pulse Rate 105 H 79 81 Respiratory Rate 20 18 16 Blood Pressure 132/82 129/80 129/80 Pulse Oximetry 98 98 97 01/23/21 03:57 01/23/21 04:26 Temperature Pulse Rate 76 71 Respiratory Rate 20 Blood Pressure 106/56 L 93/51 L Pulse Oximetry 99 98 Body Mass Index 33.4 Labs Results: 01/22/21 23:45 01/22/21 23:45 Labs: Laboratory Results - last 48 hr 01/22/21 01/22/21 01/22/21 23:45 23:45 23:45 WBC 16.3 H RBC 4.93 Hgb 14.9 Hct 43.9 MCV 89.0 MCH 30.2 MCHC 33.9 RDW 14.5 Plt Count 302 MPV 9.1 L Immature Gran % (Auto) 0.3 Neut % (Auto) 76.8 H Lymph % (Auto) 13.3 L [place] % (Auto) 9.1 Eos % (Auto) 0.1 Baso % (Auto) 0.4 Lymph # (Auto) 2.2 [place] # (Auto) 1.5 H Eos # (Auto) 0.0 Baso # (Auto) 0.1 Abs Immat Gran (auto) 0.05 H Absolute Neuts (auto) 12.5 H Absolute Nucleated RBC 0.000 Nucleated RBC % (auto) 0.0 Sodium 138 Potassium 4.4 D Chloride 103 Carbon Dioxide 21 L Anion Gap 18 BUN 15 Creatinine 1.24 Estim Creat Clear Calc 87.0 Estimated GFR > 60 Random Glucose 107 Calcium 9.7 D Troponin I High Sens Urine Color Urine Appearance Urine pH Ur Specific [place] Urine Protein Urine Glucose (UA) Urine Ketones Urine Blood Urine Nitrite Ur Leukocyte Esterase Urine Opiates Screen Ur Barbiturates Screen Ur Phencyclidine Scrn Ur Amphetamines Screen U Benzodiazepines Scrn Urine Cocaine Screen U Marijuana (THC) Screen Ethyl Alcohol < 10 01/22/21 01/23/21 01/23/21 23:45 03:54 03:54 WBC RBC Hgb Hct MCV MCH MCHC RDW Plt Count MPV Immature Gran % (Auto) Neut % (Auto) Lymph % (Auto) [place] % (Auto) Eos % (Auto) Baso % (Auto) Lymph # (Auto) [place] # (Auto) Eos # (Auto) Baso # (Auto) Abs Immat Gran (auto) Absolute Neuts (auto) Absolute Nucleated RBC Nucleated RBC % (auto) Sodium Potassium Chloride Carbon Dioxide Anion Gap BUN Creatinine Estim Creat Clear Calc Estimated GFR Random Glucose Calcium Troponin I High Sens 4.1 Urine Color MARILIN Urine Appearance HAZY Urine pH 6.0 Ur Specific [place] >= 1.030 H Urine Protein TRACE Urine Glucose (UA) NEG Urine Ketones 5 Urine Blood NEG Urine Nitrite NEG Ur Leukocyte Esterase NEG Urine Opiates Screen Not Detected Ur Barbiturates Screen Not Detected Ur Phencyclidine Scrn Not Detected Ur Amphetamines Screen Not Detected U Benzodiazepines Scrn Not Detected Urine Cocaine Screen POSITIVE H U Marijuana (THC) Screen Not Detected Ethyl Alcohol Imaging Radiology Impressions: ITS Impressions Chest X-Ray 01/22/21 23:23 IMPRESSION: No acute pulmonary finding. Mental Status Exam Mental Status Exam Narrative: On hospital gowns, fairly groomed, superficially cooperative, good eye contact. Speech is normal, no psychomotor agitation. Mood I am OK now , affect appropriated, mildly constricted, thought process logical and linear, thought content denies hallucinations or delusions, no suicidal ideation. Insight, judgment and impulse control improved. 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 On interview, he adamantly denied any psychotic symptom or safety concern. Plan: 1. Gather more collateral information. 2. Referral for outpatient providers. 3. Reassessment as demand. Greater than 50% of the session was spent on counseling and/or coordination of care
--- NOTE | 2021-01-23 10:52 | MHC.CARE ---
0930 CARE Team met with patient in [facility]; he was alert, oriented and easily engaged. He explained that he relapsed on cocaine after a month plus of abstinence, said that he was hallucinating yesterday and speculated it was not just cocaine. Patient discussed his strained relationship with his which was part of the reason he turned to drugs, stated they live apart but are still a couple. Has a trauma history and is easily triggered when they fight. Patient reported that he hopes to resume a fitness program, maintain recovery and get back into therapy. Continued to deny suicidal ideation stated he did not even know what he was saying at the time, is future oriented and has protective factors. Referrals to outpatient therapy at [facility] and [facility] will be made by the CARE Team, agencies to reach out to patient directly. In addition, a [facility] Department Supervisor will contact patient. Providers consulted and in agreement with this plan.
== END 2021-01-23 10:07 | disposition home or self-care (01) ==
PROVIDERS: Nurse Practitioner Family; Emergency Provider Emergency Medicine Emergency Medical Services; PCP Nurse Practitioner Primary Care
DX: F14.151 Cocaine abuse with cocaine-induced psychotic disorder with hallucinations (principal); R45.851 Suicidal ideations; R07.89 Other chest pain; F32.9 Major depressive disorder, single episode, unspecified; Z91.5 Personal history of self-harm; R00.0 Tachycardia, unspecified; Z79.899 Other long term (current) drug therapy
CPT/HCPCS: 36415; 71045; 80048; 80307; 81003; 82077; 84484; 85025; 93005; 99285

== ENCOUNTER 2021-02-07 20:50 | Emergency (ER) | payer MEDICAID, SELFPAY ==
[2021-02-07 21:17] VITALS: BP 113/70; PULSE 83; RESP 18; TEMP 37.4; O2SAT 99; BMI 33.4
[2021-02-07 21:41] LABS: Basophils Absolute Auto 0.1 X10*3/uL (0.0-0.2); Basophils Percent Auto 0.3 % (0-2); Eosinophils Absolute Auto 0.3 X10*3/uL (0.0-0.4); Eosinophils Percent Auto 1.2 % (0-4); Hematocrit 43.2 % (42-52); Hemoglobin 14.4 g/dl (14.0-18.0); Imm Gran Abs Auto 0.17 X10*3/uL (0.00-0.03); Imm Gran Pct Auto 0.6 % (0.0-0.4); Lymphocytes Percent Auto 6.9 % (20-40); MANUAL DIFF FLAG SCAN; Mean Corpuscular HGB Conc 33.3 g/dl (31.0-36.0); Mean Corpuscular Hemoglobin 30.4 pg (27.0-33.0); Mean Corpuscular Volume 91.3 fL (80-98); Mean Platelet Volume 8.9 fL (9.4-12.4); Monocytes Percent Auto 6.8 % (2-11); Neutrophils Percent Auto 84.2 % (45-73); Platelet Count 293 X10*3/uL (160-400); Red Blood Count 4.73 X10*6/uL (4.60-5.80); Red Cell Distribution Width 14.1 % (11.0-16.0); SCAN SMEAR FLAG 1; White Blood Count 28.5 X10*3/uL (4.8-10.8)
[2021-02-07 22:02] LABS: SLIDE REVIEW VERIFIED
[2021-02-07 22:07] LABS: Alanine Aminotransferase 6 U/L (0-40); Alkaline Phosphatase 58 U/L (39-117); Anion Gap 11 (12-20); Aspartate Amino Transferase 11 U/L (5-37); Bilirubin Total 0.9 mg/dL (0.0-1.0); Blood Urea Nitrogen 11 mg/dL (9-16); Calcium 8.9 mg/dL (8.4-10.2); Carbon Dioxide 29 mmol/L (22-29); Chloride 104 mmol/L (96-108); Creatinine Clr Calc Pharmacy 96.3; Estimated Glomerular Filt Rate > 60; Glucose Random 85 mg/dL (60-115); Potassium 3.8 mmol/L (3.3-5.1); Sodium 140 mmol/L (135-145); Total Protein 6.9 g/dL (6.5-8.0)
== END 2021-02-08 00:04 | disposition left against medical advice (07) ==
PROVIDERS: Emergency Provider Emergency Medicine
DX: R53.1 Weakness (principal)
CPT/HCPCS: 36415; 80053; 85025; 99282; 99283

== ENCOUNTER 2021-02-10 08:02 | Emergency (ER) | payer MEDICAID, SELFPAY ==
--- NOTE | ~2021-02-10 | XR_ITS ---
EXAMINATION: XR CHEST 2 VIEWS CLINICAL INFORMATION: Shortness of breath. COMPARISON: Chest radiograph dated 12/18/2020. TECHNIQUE: Frontal and lateral views of the chest were obtained. FINDINGS: The heart, great vessels, pulmonary vasculature and mediastinum are normal. The lungs show no focal infiltrate, effusion or pneumothorax. There is no acute osseous abnormality. Right axillary surgical clips are seen. A radiopaque metallic foreign body is again seen in the right chest wall soft tissues. XR/XR chest 2V IMPRESSION: No active cardiopulmonary disease.
[2021-02-10 08:38] VITALS: BP 116/74; PULSE 77; RESP 18; TEMP 37.2; O2SAT 98; BMI 33.4
--- NOTE | 2021-02-10 09:01 | ECG_ITS ---
Test Reason : UPPER RESP Blood Pressure : / mmHG Vent. Rate : 073 BPM Atrial Rate : 073 BPM P-R Int : 162 ms QRS Dur : 094 ms QT Int : 380 ms P-R-T Axes : -15 018 052 degrees QTc Int : 418 ms Normal sinus rhythm Normal ECG When compared with ECG of 22-JAN-2021 23:27, No significant change was found Referred By: Melody Craft Electronically Signed By:OSCAR CARDENAS
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
[2021-02-10] MEDS: Lidocaine 4 % Patch ADH..PATCH 2 PATCH TRANSDERMA (09:21)
[2021-02-10] MEDS: NaPROXEN 500 MG TABLET PO (09:25)
[2021-02-10] MEDS: Cyclobenzaprine HCl 10 MG TABLET PO (09:25)
[2021-02-10 09:35] LABS: Influenza A PCR NEGATIVE (Negative); Influenza B PCR NEGATIVE (Negative); Resp Syncy Virus RNA Qual PCR NEGATIVE (Negative); SARS COV2 PCR INHOUSE NEGATIVE (Negative)
[2021-02-10 09:37] LABS: MANUAL DIFF FLAG NO
[2021-02-10 09:38] LABS: Basophils Percent Auto 0.4 % (0-2); Eosinophils Absolute Auto 0.4 X10*3/uL (0.0-0.4); Eosinophils Percent Auto 4.7 % (0-4); Hematocrit 44.1 % (42-52); Hemoglobin 14.5 g/dl (14.0-18.0); Imm Gran Abs Auto 0.05 X10*3/uL (0.00-0.03); Imm Gran Pct Auto 0.7 % (0.0-0.4); Lymphocytes Absolute Auto 1.2 X10*3/uL (1.2-4.9); Lymphocytes Percent Auto 16.4 % (20-40); Mean Corpuscular HGB Conc 32.9 g/dl (31.0-36.0); Mean Corpuscular Volume 91.3 fL (80-98); Mean Platelet Volume 8.9 fL (9.4-12.4); Monocytes Absolute Auto 0.6 X10*3/uL (0.1-1.2); Neutrophils Absolute Auto 5.2 X10*3/uL (2.0-8.3); Neutrophils Percent Auto 69.8 % (45-73); Platelet Count 263 X10*3/uL (160-400); Red Blood Count 4.83 X10*6/uL (4.60-5.80); Red Cell Distribution Width 13.9 % (11.0-16.0); White Blood Count 7.4 X10*3/uL (4.8-10.8)
[2021-02-10 09:43] LABS: INTERNATIONAL NORM RATIO 1.1 (0.9-1.1); Prothrombin Time 12.8 SEC (10.8-13.0)
[2021-02-10 09:47] LABS: Adenovirus PCR Not Detected (Not Detect.); Bordetella parapertussis PCR Not Detected (Not Detect.); Bordetella pertussis PCR Not Detected (Not Detect.); Chlamydia pneumoniae PCR Not Detected (Not Detect.); Coronavirus 229E PCR Not Detected (Not Detect.); Coronavirus HKU1 PCR Not Detected (Not Detect.); Coronavirus NL63 PCR Not Detected (Not Detect.); Coronavirus OC43 PCR Not Detected (Not Detect.); Human metapneumovirus PCR Not Detected (Not Detect.); Influenza A PCR Not Detected (Not Detect.); Influenza B PCR Not Detected (Not Detect.); Mycoplasma pneumoniae PCR Not Detected (Not Detect.); Parainfluenza 1 PCR Not Detected (Not Detect.); Parainfluenza 2 PCR Not Detected (Not Detect.); Parainfluenza 3 PCR Not Detected (Not Detect.); Parainfluenza 4 PCR Not Detected (Not Detect.); RSV PCR Not Detected (Not Detect.); Rhino/Enterovirus PCR Not Detected (Not Detect.); SARS-CoV-2 PCR Not Detected (Not Detect.)
[2021-02-10 10:07] LABS: Alanine Aminotransferase 10 U/L (0-40); Albumin Level 3.9 g/dL (3.5-5.0); Alkaline Phosphatase 60 U/L (39-117); Anion Gap 12 (12-20); Aspartate Amino Transferase 16 U/L (5-37); Bilirubin Total 0.4 mg/dL (0.0-1.0); Blood Urea Nitrogen 14 mg/dL (9-16); Calcium 8.7 mg/dL (8.4-10.2); Carbon Dioxide 26 mmol/L (22-29); Chloride 103 mmol/L (96-108); Creatinine Clr Calc Pharmacy 94.6; Estimated Glomerular Filt Rate > 60; Glucose Random 84 mg/dL (60-115); Magnesium 1.9 mg/dL (1.6-2.6); Potassium 3.7 mmol/L (3.3-5.1); Sodium 137 mmol/L (135-145); Total Protein 6.8 g/dL (6.5-8.0)
[2021-02-10 10:11] LABS: B Type Natriuretic Peptide < 10 pg/mL (<100); Troponin-I High Sensitivity < 3.5 ng/L (<3.5-35.0)
== END 2021-02-10 11:05 | disposition home or self-care (01) ==
PROVIDERS: Physician Assistant Medical; Emergency Provider Emergency Medicine; PCP Nurse Practitioner Primary Care
DX: J40 Bronchitis, not specified as acute or chronic (principal); J45.909 Unspecified asthma, uncomplicated; R06.02 Shortness of breath; F19.10 Other psychoactive substance abuse, uncomplicated; Z20.822 Contact with and (suspected) exposure to COVID-19; Z79.899 Other long term (current) drug therapy
CPT/HCPCS: 0241U; 36415; 71046; 80053; 83735; 83880; 84484; 85025; 85610; 87633; 93005; 99283; 99284

== ENCOUNTER 2021-02-20 17:30 | Inpatient (IN) | payer MEDICAID, SELFPAY ==
--- NOTE | 2021-02-20 | ECG_ITS ---
Test Reason : SOB Blood Pressure : / mmHG Vent. Rate : 093 BPM Atrial Rate : 093 BPM P-R Int : 152 ms QRS Dur : 096 ms QT Int : 444 ms P-R-T Axes : 055 038 058 degrees QTc Int : 552 ms Normal sinus rhythm Possible Brugada type I pattern Prolonged QT Abnormal ECG When compared with ECG of 10-FEB-2021 09:27, QT has lengthened Referred By: Cornelia Castle Electronically Signed By:MANSI HUITRON MD
--- NOTE | ~2021-02-20 | CT_ITS ---
Indication: Tachypnea, tachycardia EXAMINATION: Pre and postcontrast CT, CTA chest. Image postprocessing is performed and these images are reviewed at an independent workstation. CT of the abdomen pelvis also obtained. This is a noncontrast study 71 mL Omnipaque 350. Radiation dose 424. CT chest; The bolus is suboptimal. There is equal contrast in the arterial system as the venous system. Given this there is no convincing evidence of a filling defect to suggest a pulmonary embolism. The thoracic inlet is within normal limits. The axillary regions are unremarkable. Mediastinum and hilar regions are within normal limits. Imaging lung pollack. Right lung; No significant infiltrate or effusion. Left lung; No significant infiltrate or effusion. Review of the bone windows shows no suspicious finding. Upper abdomen; This is a noncontrast study. Liver is enlarged. Gallbladder within normal limits. Region the pancreas is unremarkable Spleen is felt to be within normal limits. Area the adrenal glands is within normal limits. Soft tissue stranding around the right kidney. Left kidney is within normal limits. Bladder is within normal limits. The bowel pattern is nonobstructing. No free fluid. Vasculature is nondilated. There is no bulky adenopathy. Review of the bone windows shows no evidence for lesion. CT/CT angio chest PE protocol IMPRESSION: This exam is most remarkable for soft tissue stranding around the right kidney. No evidence of ureteral stone or obstruction. Pyelonephritis would be a consideration versus recently passed stone. In the chest exam is nondiagnostic for PE due to missed timed bolus. No obvious filling defect to suggest a pulmonary embolism is seen but again nondiagnostic exam. Correlation recommended clinically. Consider venous Dopplers of the extremities for further workup and/or VQ scan
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
--- NOTE | ~2021-02-20 | CT_ITS ---
Indication: Tachypnea, tachycardia EXAMINATION: Pre and postcontrast CT, CTA chest. Image postprocessing is performed and these images are reviewed at an independent workstation. CT of the abdomen pelvis also obtained. This is a noncontrast study 71 mL Omnipaque 350. Radiation dose 424. CT chest; The bolus is suboptimal. There is equal contrast in the arterial system as the venous system. Given this there is no convincing evidence of a filling defect to suggest a pulmonary embolism. The thoracic inlet is within normal limits. The axillary regions are unremarkable. Mediastinum and hilar regions are within normal limits. Imaging lung pollack. Right lung; No significant infiltrate or effusion. Left lung; No significant infiltrate or effusion. Review of the bone windows shows no suspicious finding. Upper abdomen; This is a noncontrast study. Liver is enlarged. Gallbladder within normal limits. Region the pancreas is unremarkable Spleen is felt to be within normal limits. Area the adrenal glands is within normal limits. Soft tissue stranding around the right kidney. Left kidney is within normal limits. Bladder is within normal limits. The bowel pattern is nonobstructing. No free fluid. Vasculature is nondilated. There is no bulky adenopathy. Review of the bone windows shows no evidence for lesion. CT/CT abdomen pelvis wo con IMPRESSION: This exam is most remarkable for soft tissue stranding around the right kidney. No evidence of ureteral stone or obstruction. Pyelonephritis would be a consideration versus recently passed stone. In the chest exam is nondiagnostic for PE due to missed timed bolus. No obvious filling defect to suggest a pulmonary embolism is seen but again nondiagnostic exam. Correlation recommended clinically. Consider venous Dopplers of the extremities for further workup and/or VQ scan
[2021-02-20 17:40] VITALS: BP 108/65; PULSE 98; RESP 22; TEMP 37.4; O2SAT 98; BMI 33.4
[2021-02-20 17:53] VITALS: BP 108/65; PULSE 98; RESP 22; TEMP 37.4; O2SAT 98
--- NOTE | 2021-02-20 17:57 | ECG_ITS ---
Test Reason : REPEAT Blood Pressure : / mmHG Vent. Rate : 094 BPM Atrial Rate : 096 BPM P-R Int : 000 ms QRS Dur : 090 ms QT Int : 346 ms P-R-T Axes : 000 048 042 degrees QTc Int : 432 ms Poor data quality Possible Normal sinus rhythm with Premature ventricular complexes Possible Type I Brugada pattern Abnormal ECG When compared with ECG of 20-FEB-2021 17:47, Premature ventricular complexes are now Present QT has shortened Referred By: Cornelia Castle Electronically Signed By:MANSI HUITRON MD
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
[2021-02-20] MEDS: 0.9 % Sodium Chloride 2,993.7 ML 2993.7 ML IV (18:26)
[2021-02-20 18:30] LABS: Basophils Absolute Auto 0.1 X10*3/uL (0.0-0.2); Basophils Percent Auto 0.2 % (0-2); Eosinophils Absolute Auto 0.1 X10*3/uL (0.0-0.4); Eosinophils Percent Auto 0.4 % (0-4); Hematocrit 37.6 % (42-52); Hemoglobin 12.7 g/dl (14.0-18.0); Imm Gran Abs Auto 0.44 X10*3/uL (0.00-0.03); Imm Gran Pct Auto 1.6 % (0.0-0.4); Lymphocytes Absolute Auto 0.8 X10*3/uL (1.2-4.9); Lymphocytes Percent Auto 2.7 % (20-40); MANUAL DIFF FLAG SCAN; Mean Corpuscular HGB Conc 33.8 g/dl (31.0-36.0); Mean Corpuscular Hemoglobin 29.8 pg (27.0-33.0); Mean Corpuscular Volume 88.3 fL (80-98); Mean Platelet Volume 9.3 fL (9.4-12.4); Monocytes Absolute Auto 2.4 X10*3/uL (0.1-1.2); Monocytes Percent Auto 8.4 % (2-11); Neutrophils Absolute Auto 24.6 X10*3/uL (2.0-8.3); Neutrophils Percent Auto 86.7 % (45-73); Platelet Count 288 X10*3/uL (160-400); Red Blood Count 4.26 X10*6/uL (4.60-5.80); Red Cell Distribution Width 13.7 % (11.0-16.0); SCAN SMEAR FLAG 1; White Blood Count 28.4 X10*3/uL (4.8-10.8)
[2021-02-20] MEDS: Azithromycin 500 MG TABLET PO (18:34)
[2021-02-20] MEDS: ondansetron HCL 4 MG/2 ML VIAL IVPUSH (18:34)
[2021-02-20] MEDS: cefTRIAXone sodium 1 GM in 0.9 % Sodium Chloride 50 ML IV (18:43)
[2021-02-20 18:51] LABS: Ethanol < 10 mg/dL; Magnesium 2.2 mg/dL (1.6-2.6)
[2021-02-20 19:00] LABS: Alanine Aminotransferase 11 U/L (0-40); Albumin Level 3.2 g/dL (3.5-5.0); Alkaline Phosphatase 67 U/L (39-117); Aspartate Amino Transferase 14 U/L (5-37); Bilirubin Direct 0.5 mg/dL (0.0-0.5); Bilirubin Total 0.7 mg/dL (0.0-1.0); Blood Urea Nitrogen 10 mg/dL (9-16); Calcium 8.3 mg/dL (8.4-10.2); Creatinine Clr Calc Pharmacy 106.8; Estimated Glomerular Filt Rate > 60; Glucose Random 126 mg/dL (60-115); Lipase 9 U/L (8-78)
[2021-02-20 19:06] LABS: Anion Gap 11 (12-20); Carbon Dioxide 28 mmol/L (22-29); Chloride 99 mmol/L (96-108); Influenza A PCR NEGATIVE (Negative); Influenza B PCR NEGATIVE (Negative); Potassium 2.5 mmol/L (3.3-5.1); Resp Syncy Virus RNA Qual PCR NEGATIVE (Negative); SARS COV2 PCR INHOUSE NEGATIVE (Negative); Sodium 135 mmol/L (135-145)
[2021-02-20] MEDS: Potassium Chloride ER 20 MEQ TAB.ER.PRT 60 MEQ PO (19:09)
[2021-02-20 19:10] LABS: SLIDE REVIEW VERIFIED
[2021-02-20 20:16] LABS: Appearance Urine CLEAR; Color Urine YELLOW; Glucose Urine UA NEG (NEG); Leukocyte Esterase Urine 3+ (NEG); Nitrite Urine POS (NEG); PH 6.5 (5.0-8.0); Specific Gravity - Urine <= 1.005 (1.005-1.025); UACC Culture Trigger YES; Urine Blood 1+ (NEG); Urine Ketones 5 MG/DL (NEG); Urine Protein 1+ MG/DL (NEG-TRACE)
[2021-02-20 20:38] LABS: Amphetamine Screen Urine Not Detected (Not Detect); Barbiturates, Urine Not Detected (Not Detect); Benzodiazepines Screen Urine Not Detected (Not Detect); Cannabinoid Screen Urine Not Detected (Not Detect); Cocaine Screen Urine POSITIVE (Not Detect); Opiate Screen Urine Not Detected (Not Detect); Phencyclidine Screen Urine Not Detected (Not Detect)
[2021-02-20] MEDS: iohexoL 350 MG/ML 100 ML INFUS..BTL IV (20:43)
[2021-02-20 20:48] LABS: Bacteria Urine 1+ /LPF; Squamous Epithelial Cell Urine TRACE /LPF
[2021-02-20 20:49] LABS: WBC Clumps Urine NOTED
[2021-02-20] MEDS: Nicotine 21 MG PATCH.TD24 TRANSDERMA (20:59)
[2021-02-20 21:42] VITALS: BP 118/67; PULSE 85; RESP 22; TEMP 37.4; O2SAT 98
--- NOTE | 2021-02-20 22:23 | PC.NURSE ---
Pt requesting pain medication. Reports 06/06 right side abdominal/flank pain that is interrupting sleep. PRADEEP Martinez aware. ?Pyelo.
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
[2021-02-20 23:33] VITALS: RESP 20
[2021-02-20] MEDS: HYDROmorphone HCl 1 MG/ML SYRINGE IVPUSH (23:33)
[2021-02-20] MEDS: 0.9 % Sodium Chloride Flush 3 ML SYRINGE IVFLUSH (23:34)
[2021-02-20 23:42] VITALS: PULSE 95; RESP 20; TEMP 38.1; O2SAT 97
[2021-02-21] VITALS (8 sets, daily range): BP systolic 107–149; BP diastolic 44–76; PULSE 73–90; RESP 15–20; TEMP 36.3–37.7; O2SAT 97–98
[2021-02-21] MEDS: Enoxaparin Sodium 40 MG/0.4 ML SYRINGE SUBCUT ×2 (01:21→20:27)
[2021-02-21] MEDS: Melatonin 3 MG TABLET 6 MG PO (02:01)
[2021-02-21] MEDS: HYDROmorphone HCl 0.5 MG/0.5 ML SYRINGE IVPUSH ×2 (02:01→06:08)
[2021-02-21] MEDS: Acetaminophen 325 MG TABLET 650 MG PO ×2 (02:01→12:31)
[2021-02-21] MEDS: ondansetron HCL 4 MG/2 ML VIAL IVPUSH ×3 (06:08→20:27)
[2021-02-21 07:04] LABS: Basophils Absolute Auto 0.1 X10*3/uL (0.0-0.2); Basophils Percent Auto 0.2 % (0-2); Eosinophils Absolute Auto 0.1 X10*3/uL (0.0-0.4); Eosinophils Percent Auto 0.5 % (0-4); Hemoglobin 11.3 g/dl (14.0-18.0); Imm Gran Abs Auto 0.52 X10*3/uL (0.00-0.03); Imm Gran Pct Auto 2.3 % (0.0-0.4); Lymphocytes Absolute Auto 1.2 X10*3/uL (1.2-4.9); Lymphocytes Percent Auto 5.3 % (20-40); MANUAL DIFF FLAG SCAN; Mean Corpuscular HGB Conc 33.2 g/dl (31.0-36.0); Mean Corpuscular Hemoglobin 29.8 pg (27.0-33.0); Mean Corpuscular Volume 89.7 fL (80-98); Mean Platelet Volume 9.4 fL (9.4-12.4); Monocytes Absolute Auto 1.8 X10*3/uL (0.1-1.2); Monocytes Percent Auto 8.3 % (2-11); Neutrophils Absolute Auto 18.6 X10*3/uL (2.0-8.3); Neutrophils Percent Auto 83.4 % (45-73); Platelet Count 264 X10*3/uL (160-400); Red Blood Count 3.79 X10*6/uL (4.60-5.80); Red Cell Distribution Width 13.9 % (11.0-16.0); SCAN SMEAR FLAG 1; White Blood Count 22.3 X10*3/uL (4.8-10.8)
[2021-02-21 07:26] LABS: Magnesium 2.2 mg/dL (1.6-2.6)
[2021-02-21 07:34] LABS: SLIDE REVIEW VERIFIED
[2021-02-21 07:43] LABS: Anion Gap 11 (12-20); Blood Urea Nitrogen 8 mg/dL (9-16); Calcium 7.5 mg/dL (8.4-10.2); Carbon Dioxide 25 mmol/L (22-29); Chloride 104 mmol/L (96-108); Creatinine Clr Calc Pharmacy 138.3; Estimated Glomerular Filt Rate > 60; Glucose Random 115 mg/dL (60-115); Sodium 137 mmol/L (135-145)
[2021-02-21] MEDS: KCl 40 mEq in 5% Dex/0.45% Sod 40 MEQ/1,000 ML IV.SOLN 100 MEQ IVCONT ×2 (08:56→18:16)
[2021-02-21] MEDS: 0.9 % Sodium Chloride Flush 3 ML SYRINGE IVFLUSH (09:03)
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
--- NOTE | 2021-02-21 10:14 | PC.NURSE ---
pt is nauseous and vomitting small//mod amt of fluid, dr. hogue aware.
--- NOTE | 2021-02-21 10:46 | PC.NURSE ---
PT IS C/O 06/06 MIGRAINE HEADACHE. AWARE.
[2021-02-21] MEDS: HYDROmorphone HCl 1 MG/ML SYRINGE IVPUSH ×3 (10:47→20:27)
--- NOTE | 2021-02-21 13:42 | PC.NURSE ---
pt c/o nausea and migraine multiple pain meds given and nausea medications pt resting comfortably in the bed with no complaints unless awoken by staff
--- NOTE | 2021-02-21 15:46 | MHC.CM.PN ---
EMR REVIEWED, PT ADMITTED W/PYELONEPHRITIS, CM MET W/PT WHO REPORTS HE LIVES ALONE, PT IS INDEPENDENT W/NO DME OR HOME SERVICES, PT WAS POSIIVE FOR COCAINE AND DOES REPORT HE WOULD LIKE TO SPEAK W/RECOVERY SUPPORT NURSE, PT VERIEFIES PPCP IS MIKKI ROBERTS AND HCP IS RUSSELL COVARRUBIAS [phone], COPY HAS BEEN REQUESTED. D/C PLAN: HOME W/NO SERVICES, PT WILL ARRANGE TRANSPORT
--- NOTE | 2021-02-21 16:16 | PC.NURSE ---
pt has periods of time where he will be asleep, calm with no complaints but upon rousing or waking up he begins to dry heave and compain of pain patient currently has no medications for nausea or pain that are able to be administered to him
[2021-02-21] MEDS: cefTRIAXone sodium 2 GM in 0.9 % Sodium Chloride 50 ML IV (17:39)
[2021-02-21] MEDS: Butalb/Acetamin/Caff 50/325/40 TABLET 1 TAB PO (17:50)
[2021-02-22] VITALS (7 sets, daily range): BP systolic 110–133; BP diastolic 59–86; PULSE 61–101; RESP 16–20; TEMP 36.3–37; O2SAT 96–99
--- NOTE | 2021-02-22 | ECG_ITS ---
Test Reason : ABN EKG Blood Pressure : / mmHG Vent. Rate : 066 BPM Atrial Rate : 066 BPM P-R Int : 156 ms QRS Dur : 098 ms QT Int : 394 ms P-R-T Axes : -16 035 054 degrees QTc Int : 413 ms Normal sinus rhythm Normal ECG When compared with ECG of 20-FEB-2021 23:02, Premature ventricular complexes are no longer Present J point elevation is less prominent in lead V1 Referred By: Cornelia Castle Electronically Signed By:MANSI HUITRON MD
[2021-02-22] MEDS: HYDROmorphone HCl 1 MG/ML SYRINGE IVPUSH ×2 (01:23→05:34)
[2021-02-22] MEDS: KCl 40 mEq in 5% Dex/0.45% Sod 40 MEQ/1,000 ML IV.SOLN 100 MEQ IVCONT ×2 (05:07→16:17)
[2021-02-22] MEDS: ondansetron HCL 4 MG/2 ML VIAL IVPUSH (05:34)
[2021-02-22 07:42] LABS: Hematocrit 33.6 % (42-52); Hemoglobin 11.3 g/dl (14.0-18.0); Mean Corpuscular HGB Conc 33.6 g/dl (31.0-36.0); Mean Corpuscular Hemoglobin 30.1 pg (27.0-33.0); Mean Corpuscular Volume 89.6 fL (80-98); Mean Platelet Volume 9.9 fL (9.4-12.4); Platelet Count 292 X10*3/uL (160-400); Red Blood Count 3.75 X10*6/uL (4.60-5.80); Red Cell Distribution Width 13.9 % (11.0-16.0); White Blood Count 14.9 X10*3/uL (4.8-10.8)
[2021-02-22] MEDS: LORazepam 2 MG/ML VIAL 0.5 MG IVPUSH (08:31)
[2021-02-22] MEDS: Morphine Sulfate 4 MG/ML CARTRIDGE 3 MG IVPUSH ×3 (08:31→17:09)
[2021-02-22] MEDS: 0.9 % Sodium Chloride Flush 3 ML SYRINGE IVFLUSH (08:32)
[2021-02-22 08:51] LABS: Anion Gap 9 (12-20); Blood Urea Nitrogen 7 mg/dL (9-16); Calcium 7.7 mg/dL (8.4-10.2); Carbon Dioxide 28 mmol/L (22-29); Chloride 102 mmol/L (96-108); Estimated Glomerular Filt Rate > 60; Glucose Random 117 mg/dL (60-115); Potassium 3.1 mmol/L (3.3-5.1); Sodium 136 mmol/L (135-145)
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
--- NOTE | 2021-02-22 12:41 | MHC.CM.PN ---
EMR REVIEWED, PT STILL C/O ABD PAIN, PT SEEN BY ID DUE TO GNI BACTEREMIA, PER ID PT WILL MOST LIKELY D/C ON 14 DAYS OF ABX, FINAL ABX TBD, PER HOSPITALIST D/C IN 1-2 DAYS, CM MET W/PT WHO DOES REPORT HE WOULD LIKE TO SPEAK W/CLINICAL SERVICES SPECIALIST, PER RECOVERY TEAM THEY WILL SET PT UP W/BUSINESS SYSTEMS ARCHITECT IF HE IS AGREEABLE. D/C PLAN: HOME SELF-CARE, PT TO ARRANGE TRANSPORT
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
--- NOTE | 2021-02-22 13:27 | MHC.CLN ---
NUTRITION CONSULT VISITED WITH PATIENT TO DISCUSS RECENT INTAKE/WEIGHT. REPORTS THAT HAS NOT BEEN EATING WELL X APPROXIMATELY 1 WEEK. SUSPECTS WEIGHT LOSS BUT UNABLE TO QUANTIFY. REPORTS NAUSEA AND VOMITING. ATE LESS THAN 50% OF FOOD AT LUNCH. WOULD LIKE [place] ENSURE. RD WILL ADD ENSURE 240 CC TWO TIMES DAILY. WILL PROVIDE 700 KCAL AND 40 G PROTEIN
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
[2021-02-22] MEDS: Potassium Chloride ER 20 MEQ TAB.ER.PRT 40 MEQ PO (16:49)
[2021-02-22] MEDS: cefTRIAXone sodium 2 GM in 0.9 % Sodium Chloride 50 ML IV (17:11)
[2021-02-22] MEDS: Enoxaparin Sodium 40 MG/0.4 ML SYRINGE SUBCUT (20:18)
[2021-02-22] MEDS: Melatonin 3 MG TABLET 6 MG PO (20:59)
[2021-02-22] MEDS: Ketorolac Tromethamine 15 MG/ML VIAL IVPUSH (21:00)
[2021-02-22] MEDS: Sennosides 8.6 MG TABLET 17.2 MG PO (21:05)
[2021-02-23] MEDS: 0.9 % Sodium Chloride Flush 3 ML SYRINGE IVFLUSH ×3 (01:24→15:38)
[2021-02-23] MEDS: Morphine Sulfate 4 MG/ML CARTRIDGE 3 MG IVPUSH ×4 (03:08→20:07)
[2021-02-23 04:00] VITALS: BP 124/70; PULSE 60; RESP 18; TEMP 36.3; O2SAT 100
[2021-02-23 06:11] LABS: MANUAL DIFF FLAG NO
[2021-02-23 06:39] LABS: Basophils Percent Auto 0.3 % (0-2); Eosinophils Absolute Auto 0.3 X10*3/uL (0.0-0.4); Eosinophils Percent Auto 2.3 % (0-4); Hematocrit 35.5 % (42-52); Hemoglobin 11.9 g/dl (14.0-18.0); Imm Gran Abs Auto 0.05 X10*3/uL (0.00-0.03); Imm Gran Pct Auto 0.5 % (0.0-0.4); Lymphocytes Absolute Auto 1.8 X10*3/uL (1.2-4.9); Lymphocytes Percent Auto 16.4 % (20-40); Mean Corpuscular HGB Conc 33.5 g/dl (31.0-36.0); Mean Corpuscular Volume 89.4 fL (80-98); Mean Platelet Volume 9.6 fL (9.4-12.4); Monocytes Absolute Auto 1.3 X10*3/uL (0.1-1.2); Monocytes Percent Auto 11.4 % (2-11); Neutrophils Absolute Auto 7.6 X10*3/uL (2.0-8.3); Neutrophils Percent Auto 69.1 % (45-73); Platelet Count 328 X10*3/uL (160-400); Red Blood Count 3.97 X10*6/uL (4.60-5.80); Red Cell Distribution Width 13.8 % (11.0-16.0)
[2021-02-23 06:58] LABS: Anion Gap 12 (12-20); Blood Urea Nitrogen 11 mg/dL (9-16); Calcium 8.1 mg/dL (8.4-10.2); Carbon Dioxide 27 mmol/L (22-29); Chloride 103 mmol/L (96-108); Creatinine Clr Calc Pharmacy 119.9; Estimated Glomerular Filt Rate > 60; Glucose Random 81 mg/dL (60-115); Potassium 3.4 mmol/L (3.3-5.1); Sodium 139 mmol/L (135-145)
[2021-02-23 08:00] VITALS: BP 150/85; PULSE 77; RESP 17; TEMP 37.3; O2SAT 98
[2021-02-23] MEDS: LORazepam 2 MG/ML VIAL 0.5 MG IVPUSH ×2 (08:32→20:10)
--- NOTE | 2021-02-23 11:38 | MHC.RECOVSUP ---
? Reason for consult:Continuity of care o Current location: [facility] o Identified substance use concern: cocaine - Seeking ATS (detox) - Support ? Intervention: o Community resources provided o Harm reduction discussion ? Kathy o Patient to follow up with [facility] after discharge ? Additional information: Discussed [facility] and other pathways to recovery.
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
[2021-02-23 11:58] VITALS: BP 141/97; PULSE 86; RESP 16; TEMP 36.2; O2SAT 98
--- NOTE | 2021-02-23 13:50 | MHC.CM.PN ---
NURSE BIOPHYSICS PROFESSOR NOTE ELECTRONIC MEDICAL RECORD REVIEWED ALONG WITH CASE DISCUSSED WITH STAFF NURSE AND ON MULTIPLE DISCIPLINARY ROUNDS. MET WITH PATIENT HE REPORTED HE SAW DAFNE FROM, THE RECOVERY SUPPORT TEAM AND REQUESTED THAT TRY TO GET IN TOUCH WITH THE RECOVERY SUPPORT NURSE , THIS MESSAGE WAS SENT TO ADAM Burgess, PATIENT WILL ALOS BE SEEN BY GRAZYNA TODAY (PATIENT WAS EVALUUATED BY PSYCCHIATRY SECONDARY TO COCAINE ABUSE INDUCED HALLUCINATIONS THEY RECOMMENDED NO TREATMENT SINCE ALL SYMPTOMS RESOLVED ) PATIENT COMPLAINS OF RIGHT FLANK PAIN WITH RADIATION TO RIGHT GROIN (DENIES USE OF COCAINE. PATIENT WAS ADMITTED WITH THE FOLLOWING DIAGNOSIS PER RECORD( SEPSIS ,PYLEONEPHRITIS, ANXIETY/DEPRESSION, HIS BLOOD CULTURES GREW OUT E COLI, CONTINUE IV CEFTRIAXONE, DISCHARGE PLAN HOME WITH RECOMENDATIONS BY THE RECOVERY SUPPORT TEAM SSOCIAL WORKER RECOMENDATIONS, HEAT TREATER APPRENTICE SUPPORT CONFIGURATION MANAGEMENT ADMINISTRATOR
[2021-02-23 15:35] VITALS: BP 128/71; PULSE 63; RESP 18; TEMP 36.7; O2SAT 100
[2021-02-23] MEDS: Docusate Sodium 100 MG CAPSULE 200 MG PO (17:30)
[2021-02-23] MEDS: Lactulose 20 GM/30 ML SOLUTION 15 GM PO (17:30)
[2021-02-23] MEDS: cefTRIAXone sodium 2 GM in 0.9 % Sodium Chloride 50 ML IV (17:32)
[2021-02-23 20:00] VITALS: BP 133/80; PULSE 65; RESP 18; TEMP 37.1; O2SAT 95
[2021-02-23] MEDS: Enoxaparin Sodium 40 MG/0.4 ML SYRINGE SUBCUT (20:07)
[2021-02-23 23:35] VITALS: BP 105/66; PULSE 65; RESP 18; TEMP 36.6; O2SAT 98
[2021-02-24] MEDS: 0.9 % Sodium Chloride Flush 3 ML SYRINGE IVFLUSH ×4 (00:38→21:05)
[2021-02-24] MEDS: Morphine Sulfate 4 MG/ML CARTRIDGE 3 MG IVPUSH ×6 (01:28→23:50)
[2021-02-24 04:00] VITALS: BP 128/72; PULSE 68; RESP 18; TEMP 36.2; O2SAT 97
[2021-02-24] MEDS: LORazepam 2 MG/ML VIAL 0.5 MG IVPUSH ×2 (05:07→21:10)
[2021-02-24 07:43] VITALS: BP 141/78; PULSE 59; RESP 18; TEMP 36.1; O2SAT 99
--- NOTE | 2021-02-24 09:35 | MHC.CM.PN ---
NURSE GRINDING WHEEL FACER NOTE LATE ENTRY ELECTRONIC MEDICAL RECORD REVIEWED ALONG WITH CASE DISCUSSED WITH STAFF NURSE AND ON MULTIPLE DISCIPLINARY ROUNDS. MET WITH PATIENT EXPLAINED THE MEDICARE IMM AND LEFT WITH PATIENT WITH ATTACHED NAME CARD , EDUCATED ABOUT IMPORTANCE OF HAVING A HEALTH CARE PROXY SHE REPORTED SHE HAS ONE AT HOME NAMING HER AGENT CAROLE HER . PATIENT HAS BEEN IN A ASSISTED FACILITY FOR REHAB AND HAD BEEN JUST DISCHARGED WHEN SHE WAS BEING TRANSFERRED FROM THE STRETCHER TO THE BED SHE FELL HER WOUND VAC WAS ALSO REMOVED ON THE DAY OF DISCHARGE FROM THE FACILITY PER PATIENT REPORT AND CHART DOCUMENTATION , PATIENT REPORTED SHE WAS ON SUBOXONE AND WAS COMING TO THE [facility] , SHE WAS ON IT AT THE FACILITY AND THEN OFF AND GIVEN NARCOTICS AND DISCHARGED HOME ON NARCOTICS , I CHECKED WITH THE RECOVER SUPPORT NURSE ADAM AND SHE REPORTED THAT HER PRESCRIPTION RAN OUT IN [place] AND SHE WAS NOT IN THE CLINIC BECAUSE SHE WAS IN REHAB, PATIENT ALSO REPORTS THAT SHE WAS ON BIPAP BUT DID NOT BRING IT TO THE HOSPITAL , VIA TIGER TEXT TO SHONDA BOUDREAUX IN RESPIRATORY TO SEE IF THEY CAN ARRANGE FOR BIPAP HERE IN THE HOSPITAL . VENDOR MANAGEMENT ASSOCIATE TO CONTINUE TO FOLLOW PATIENT WAS ADMITTED WITH THE DIAGNOSIS OF CELLULITES AND TIBIAL FRACTURE DISCHARGE PLAN HOME WITH THE [facility] FOR NS[facility] HOME PT/OT IF OFF NARCOTICS AT DISCHARGE WILL REFER BACK TO [facility] FOR SUBOXONE PCP DR RAHMAN REPORTED SHE HAS A HEALTH CARE PROXY, REQUESTED COPY BE BROUGHT IN
--- NOTE | 2021-02-24 10:05 | MHC.CM.PN ---
NURSE EYEGLASS CUTTER NOTE ELECTRONIC MEDICAL RECORD REVIEWED ALONG WITH CASE DISCUSSED WITH STAFF NURSE AND HOSPITALIST , PATIENT CURRENTLY ON IV MORPHINE Q4 HRS PRN, AND IV ATIVAN Q6HRS PRN SC LOVENOX IV CEFTRIAXONE , P[PER HOSPITALIST SHE WILL CONVERT MEDICATIONS TO ORAL ROUTS SND DISCHARGE PATIENT TOMORROW, PATIENT INFORMED HER THAT HE HAS NO HOME TO GO TO AND HIS SON FROM [place] WILL BE COMING TO THE [facility]LA TOMORROW TO PICK HIM UP AND BRING HIM TO [place] , PATIENT HAS MET WITH GRAZYNA IBARRA AND WAS GIVEN COMMUNITY SUPPORT INFORMATION ON [facility]IA TIGER TEXTED REACHED OUT TO THE RECOVERY SUPPORT TEAM TO COME BACK IN LIGHT OF HIS CHANGE OF RESIDENCE AND GIVE HIM SOME SUPPORT INFO DISCHARGE PLAN HOME NO SERVICES MET WITH RECOVERY SUPPORT TEAM AND GIVEN INFORMATION ON COMMUNITY SUPPORT GROUPS AND DETOX FACILITYIES , REQUESTED THEY COME BACK AND GIV HIM INFORMATION [facility] INFORMATION [facility]
--- NOTE | 2021-02-24 11:00 | MHC.RECOVRN ---
T/w met with pt after being informed pt will be relocating to [place] after discharge. Pt was provided with resources near the [facility]. Pt denies questions for t/w.
--- NOTE | 2021-02-24 11:13 | MHC.CM.PN ---
nurse manager primary care note patient has met with patricio from the recovery support teamm, she gave to meenu alston resources in the area that patient s son lives in for community support detox residental programs. patient is aware that he will be discharged tomorrow
[2021-02-24 11:38] VITALS: BP 132/90; PULSE 64; RESP 18; TEMP 36.6; O2SAT 99
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
[2021-02-24 15:12] VITALS: BP 122/72; PULSE 62; RESP 15; TEMP 36.2; O2SAT 98
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
[2021-02-24] MEDS: cefTRIAXone sodium 2 GM in 0.9 % Sodium Chloride 50 ML IV (18:11)
[2021-02-24 19:30] VITALS: BP 110/69; PULSE 65; RESP 16; TEMP 36.4; O2SAT 99
[2021-02-24] MEDS: Enoxaparin Sodium 40 MG/0.4 ML SYRINGE SUBCUT (21:04)
[2021-02-24 23:37] VITALS: BP 120/68; PULSE 59; RESP 18; TEMP 36.6; O2SAT 98
[2021-02-25] MEDS: LORazepam 2 MG/ML VIAL 0.5 MG IVPUSH (03:00)
[2021-02-25 04:00] VITALS: BP 117/68; PULSE 63; RESP 18; TEMP 36.3; O2SAT 96
[2021-02-25] MEDS: Morphine Sulfate 4 MG/ML CARTRIDGE 3 MG IVPUSH (04:47)
[2021-02-25 07:39] VITALS: BP 144/101; PULSE 112; RESP 18; TEMP 36; O2SAT 98
[2021-02-25 08:06] VITALS: BP 141/96; PULSE 108
[2021-02-25] MEDS: Ibuprofen 400 MG TABLET PO (09:12)
[2021-02-25] MEDS: Lactulose 20 GM/30 ML SOLUTION PO (09:12)
[2021-02-25] MEDS: 0.9 % Sodium Chloride Flush 3 ML SYRINGE IVFLUSH (09:12)
[2021-02-25] MEDS: Acetaminophen 325 MG TABLET 650 MG PO (09:12)
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
--- NOTE | 2021-02-25 11:21 | MHC.CM.PN ---
PATIENT WILL BE DISCHARGRED TODAY , HER SON WILL BE COMING FROM [place] AND TAKE PATIENT TO HIS HOME , PATEINT MET WITH ADAM THE RECOVERY SUPPORT NURSE AND GAVE HIM RESOURCES IN [facility] . TRANSPORTATION PATIENT SON
== END 2021-02-25 12:44 | disposition home or self-care (01) | DRG 720 ==
LOC: HO.ED 22:05 → HO.EDOVER 02-21 00:58 → HO.S3 02-21 16:50
PROVIDERS: Internal Medicine; Nurse Practitioner Family; Admitting Provider Hospitalist; Emergency Provider Emergency Medicine; PCP Nurse Practitioner Primary Care; Visit Provider Hospitalist
DX: A41.51 Sepsis due to Escherichia coli [E. coli] (principal); F14.151 Cocaine abuse with cocaine-induced psychotic disorder with hallucinations; N12 Tubulo-interstitial nephritis, not specified as acute or chronic; E87.6 Hypokalemia; F32.9 Major depressive disorder, single episode, unspecified; F41.9 Anxiety disorder, unspecified; I49.8 Other specified cardiac arrhythmias; F17.210 Nicotine dependence, cigarettes, uncomplicated; Z71.6 Tobacco abuse counseling; Z20.822 Contact with and (suspected) exposure to COVID-19; Z79.1 Long term (current) use of non-steroidal anti-inflammatories (NSAID); Z79.899 Other long term (current) drug therapy
CPT/HCPCS: 0241U; 36415; 71045; 71275; 74176; 80048; 80076; 80307; 81001; 81003; 82077; 83605; 83690; 83735; 84484; 85025; 85027; 87040; 87077; 87086; 87186; 87205; 93005; 99285; J0696; J1170; J1650; J1885; J2060; J2270; J2405; J2550; Q9967

== ENCOUNTER 2021-04-03 16:04 | Emergency (ER) | payer MEDICAID, SELFPAY ==
[2021-04-03 16:08] VITALS: BP 156/110; PULSE 70; O2SAT 98
[2021-04-03 16:16] VITALS: BP 203/96; PULSE 75; RESP 16; TEMP 36.9; O2SAT 97; BMI 33.4
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
[2021-04-03] MEDS: LORazepam 1 MG TABLET 2 MG PO (16:25)
--- NOTE | 2021-04-03 16:39 | PC.NURSE ---
with help of security patient was changed into hospital clothing and n report faxed for consult
[2021-04-03 17:21] LABS: Basophils Absolute Auto 0.1 X10*3/uL (0.0-0.2); Basophils Percent Auto 0.4 % (0-2); Eosinophils Absolute Auto 0.4 X10*3/uL (0.0-0.4); Eosinophils Percent Auto 2.5 % (0-4); Hematocrit 39.4 % (42-52); Hemoglobin 13.1 g/dl (14.0-18.0); Imm Gran Abs Auto 0.06 X10*3/uL (0.00-0.03); Imm Gran Pct Auto 0.4 % (0.0-0.4); Lymphocytes Percent Auto 13.1 % (20-40); MANUAL DIFF FLAG SCAN; Mean Corpuscular HGB Conc 33.2 g/dl (31.0-36.0); Mean Corpuscular Hemoglobin 29.2 pg (27.0-33.0); Mean Corpuscular Volume 87.9 fL (80-98); Mean Platelet Volume 8.8 fL (9.4-12.4); Monocytes Absolute Auto 1.7 X10*3/uL (0.1-1.2); Monocytes Percent Auto 10.8 % (2-11); Neutrophils Absolute Auto 11.2 X10*3/uL (2.0-8.3); Neutrophils Percent Auto 72.8 % (45-73); Platelet Count 279 X10*3/uL (160-400); Red Blood Count 4.48 X10*6/uL (4.60-5.80); Red Cell Distribution Width 13.5 % (11.0-16.0); SCAN SMEAR FLAG 1; White Blood Count 15.4 X10*3/uL (4.8-10.8)
[2021-04-03 17:53] LABS: SLIDE REVIEW VERIFIED
[2021-04-03 17:56] LABS: Ethanol < 10 mg/dL
[2021-04-03 18:03] LABS: Influenza A PCR NEGATIVE (Negative); Influenza B PCR NEGATIVE (Negative); Resp Syncy Virus RNA Qual PCR NEGATIVE (Negative); SARS COV2 PCR INHOUSE NEGATIVE (Negative)
[2021-04-03 18:08] VITALS: BP 114/63; PULSE 74; RESP 18; O2SAT 100
[2021-04-03 20:00] VITALS: RESP 16
[2021-04-03 22:17] VITALS: BP 107/55; PULSE 64; RESP 18; TEMP 36.9; O2SAT 98
--- NOTE | 2021-04-04 02:58 | PC.NURSE ---
pt has been sleeping in the recliner since the beginning of the shift, urine is still needed at this time. report given to the pod and pt has been taken over.
[2021-04-04 08:08] VITALS: RESP 16
--- NOTE | 2021-04-04 08:29 | PC.NURSE ---
Per Care team [facility] stated they did not receive referral on this pt. T/w re-faxed and called [facility]. Pt currently sleeping in a chair in the common room. Resp reg and even. NAD.
--- NOTE | 2021-04-04 11:36 | PC.NURSE ---
[facility] currently meeting with patient
== END 2021-04-04 13:28 | disposition home or self-care (01) ==
PROVIDERS: Nurse Practitioner Family; Emergency Provider Emergency Medicine Emergency Medical Services
DX: F19.10 Other psychoactive substance abuse, uncomplicated (principal); R45.851 Suicidal ideations; F41.9 Anxiety disorder, unspecified; F14.10 Cocaine abuse, uncomplicated; F32.9 Major depressive disorder, single episode, unspecified; F17.210 Nicotine dependence, cigarettes, uncomplicated; Z20.822 Contact with and (suspected) exposure to COVID-19; Z72.89 Other problems related to lifestyle; Z63.5 Disruption of family by separation and divorce; Z91.5 Personal history of self-harm
CPT/HCPCS: 0241U; 36415; 82077; 85025; 99284; 99285

== ENCOUNTER 2021-04-07 15:34 | Emergency (ER) | payer MEDICAID, SELFPAY ==
[2021-04-07 15:43] VITALS: BP 118/78; PULSE 83; RESP 13; O2SAT 98; BMI 36.5
--- NOTE | 2021-04-07 16:13 | ECG_ITS ---
Test Reason : OVERDOSE Blood Pressure : / mmHG Vent. Rate : 065 BPM Atrial Rate : 065 BPM P-R Int : 172 ms QRS Dur : 094 ms QT Int : 400 ms P-R-T Axes : 035 060 064 degrees QTc Int : 416 ms Normal sinus rhythm with sinus arrhythmia ST pattern in V1 suugestive of Brugada Type I When compared with ECG of 22-FEB-2021 11:40, No significant change was found Referred By: Saleem Navas Electronically Signed By:MANSI HUITRON MD
[2021-04-07] MEDS: 0.9 % Sodium Chloride 1,000 ML 999 ML IV (16:25)
[2021-04-07] MEDS: 0.9 % Sodium Chloride 500 ML 50 ML IV (16:25)
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
[2021-04-07 16:31] LABS: MANUAL DIFF FLAG NO
[2021-04-07 16:33] LABS: Basophils Absolute Auto 0.1 X10*3/uL (0.0-0.2); Basophils Percent Auto 0.4 % (0-2); Eosinophils Absolute Auto 0.8 X10*3/uL (0.0-0.4); Eosinophils Percent Auto 5.7 % (0-4); Hematocrit 40.2 % (42-52); Hemoglobin 13.5 g/dl (14.0-18.0); Imm Gran Abs Auto 0.04 X10*3/uL (0.00-0.03); Imm Gran Pct Auto 0.3 % (0.0-0.4); Lymphocytes Absolute Auto 2.4 X10*3/uL (1.2-4.9); Lymphocytes Percent Auto 17.2 % (20-40); Mean Corpuscular HGB Conc 33.6 g/dl (31.0-36.0); Mean Corpuscular Hemoglobin 29.7 pg (27.0-33.0); Mean Corpuscular Volume 88.4 fL (80-98); Mean Platelet Volume 8.9 fL (9.4-12.4); Monocytes Absolute Auto 1.3 X10*3/uL (0.1-1.2); Monocytes Percent Auto 9.6 % (2-11); Neutrophils Absolute Auto 9.2 X10*3/uL (2.0-8.3); Neutrophils Percent Auto 66.8 % (45-73); Platelet Count 293 X10*3/uL (160-400); Red Blood Count 4.55 X10*6/uL (4.60-5.80); Red Cell Distribution Width 13.5 % (11.0-16.0); White Blood Count 13.8 X10*3/uL (4.8-10.8)
--- NOTE | 2021-04-07 16:33 | PC.NURSE ---
with help of security patient changed into hospital attire, belongings locked up for safety and sitter placed for a 1:1
[2021-04-07 16:37] LABS: Amphetamine Screen Urine Not Detected (Not Detect); Barbiturates, Urine Not Detected (Not Detect); Benzodiazepines Screen Urine Not Detected (Not Detect); Cannabinoid Screen Urine Not Detected (Not Detect); Cocaine Screen Urine POSITIVE (Not Detect); Fentanyl, urine Not Detected (Not Detect); Opiate Screen Urine Not Detected (Not Detect); Phencyclidine Screen Urine Not Detected (Not Detect)
[2021-04-07 16:39] LABS: INTERNATIONAL NORM RATIO 1.1 (0.9-1.1); Prothrombin Time 12.2 SEC (9.9-13.0)
[2021-04-07 16:42] LABS: Partial Thromboplastin Time 35.5 SEC (24.1-38.0)
--- NOTE | 2021-04-07 16:45 | PC.NURSE ---
patient rocking back and forth in bed complaining of pain in his nose d/t snorting cocaine earlier in the day patient asking this RN for something for pain this RN informed the patient that d/t the fact that he 1. does not know what pills he ingested last night and 2. took an unknown quantity along with snorting cocaine that the best and safest option at this point would be an ice pack patient denied wanting an ice pack and requests again for something for pain this RN informed the patient that pain medication, especially d/t the fact that he ingested unknown pills of unknown quantity, would not be able to be given to him at this time provicer aware
[2021-04-07 17:09] LABS: Alanine Aminotransferase 6 U/L (0-40); Alkaline Phosphatase 55 U/L (39-117); Aspartate Amino Transferase 11 U/L (5-37); Bilirubin Direct 0.3 mg/dL (0.0-0.5); Bilirubin Total 0.8 mg/dL (0.0-1.0); Ethanol < 10 mg/dL; Salicylate < 5.0 mg/dL (15-30); Total Protein 7.1 g/dL (6.5-8.0)
[2021-04-07 17:13] LABS: Acetaminophen LAB < 1 mcg/mL (<30); Alanine Aminotransferase 7 U/L (0-40); Alkaline Phosphatase 55 U/L (39-117); Anion Gap 12 (12-20); Aspartate Amino Transferase 10 U/L (5-37); Bilirubin Total 0.8 mg/dL (0.0-1.0); Blood Urea Nitrogen 6 mg/dL (9-16); Calcium 9.3 mg/dL (8.4-10.2); Carbon Dioxide 25 mmol/L (22-29); Chloride 106 mmol/L (96-108); Creatinine Clr Calc Pharmacy 95.5; Estimated Glomerular Filt Rate > 60; Glucose Random 85 mg/dL (60-115); Potassium 3.7 mmol/L (3.3-5.1); Sodium 139 mmol/L (135-145); Total Protein 7.1 g/dL (6.5-8.0)
[2021-04-07 17:48] VITALS: BP 151/89; PULSE 82; RESP 18; O2SAT 99
[2021-04-07] MEDS: Acetaminophen 325 MG TABLET 650 MG PO (17:52)
--- NOTE | 2021-04-07 18:38 | PC.NURSE ---
patient states he is SI- bhn consulted, provider made aware
[2021-04-07 19:15] VITALS: BP 124/65; PULSE 78; RESP 13; TEMP 37.2; O2SAT 99
--- NOTE | 2021-04-07 19:17 | PC.NURSE ---
Pt asleep on stretcher in NAD, breathing with ease on RA. NSR on environmental monitoring technician. VSS. Pt stretcher low locked, rails raised, sitter in place observing pt for safety. Per Salome Reyes RN pt to be observed until 2200 for medical clearance, then can be transferred to pod. Pt awaiting [facility] consult
[2021-04-07 21:13] VITALS: BP 124/75; PULSE 62; RESP 12; TEMP 36.8; O2SAT 99
[2021-04-07 23:24] VITALS: BP 113/65; PULSE 61; RESP 12; TEMP 36.4; O2SAT 99
[2021-04-07 23:51] VITALS: BP 143/91; PULSE 79; RESP 16; TEMP 36.5; O2SAT 97
[2021-04-08 01:09] LABS: Influenza A PCR NEGATIVE (Negative); Influenza B PCR NEGATIVE (Negative); Resp Syncy Virus RNA Qual PCR NEGATIVE (Negative); SARS COV2 PCR INHOUSE NEGATIVE (Negative)
--- NOTE | 2021-04-08 05:54 | PC.NURSE ---
Patient got transferred to ED POD at 2331 from main ED, patient alert and oriented x 4, ambulated without gait deficit, patient was swabbed for Covid/ patient compliant, [facility]N called/confirmed that patient's referral was received, patient will be seen in the morning, patient slept through the night, no distress observed/reported, med rec completed/pending provider's approval, will continue to monitor.
--- NOTE | 2021-04-08 07:24 | PC.NURSE ---
pt awake to do adls, calm and cooperative with staff. plan to see bhn today.
[2021-04-08 07:52] VITALS: BP 115/65; PULSE 58; TEMP 36.6; O2SAT 99
== END 2021-04-08 16:02 | disposition home or self-care (01) ==
PROVIDERS: Physician Assistant; Emergency Provider Emergency Medicine
DX: T43.591A Poisoning by other antipsychotics and neuroleptics, accidental (unintentional), initial encounter (principal); T39.311A Poisoning by propionic acid derivatives, accidental (unintentional), initial encounter; T40.5X1A Poisoning by cocaine, accidental (unintentional), initial encounter; R45.851 Suicidal ideations; Y92.9 Unspecified place or not applicable; Z20.822 Contact with and (suspected) exposure to COVID-19; Z79.899 Other long term (current) drug therapy; Z71.51 Drug abuse counseling and surveillance of drug abuser
CPT/HCPCS: 0241U; 36415; 80053; 80076; 80143; 80179; 80307; 82077; 82248; 82550; 85025; 85610; 85730; 93005; 96360; 96361; 99285

== ENCOUNTER 2021-08-11 09:03 | Emergency (ER) | payer MEDICAID, SELFPAY ==
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
[2021-08-11 09:56] VITALS: BP 129/69; PULSE 62; RESP 18; TEMP 36.5; O2SAT 98; BMI 33.4
[2021-08-11 10:29] LABS: COVID-19 Test Negative (Negative); IDNOW Serial# 9DD0AD1C
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
== END 2021-08-11 11:56 | disposition home or self-care (01) ==
PROVIDERS: Emergency Provider Emergency Medicine; PCP Nurse Practitioner Primary Care
DX: J06.9 Acute upper respiratory infection, unspecified (principal); J40 Bronchitis, not specified as acute or chronic; J45.909 Unspecified asthma, uncomplicated; Z20.822 Contact with and (suspected) exposure to COVID-19
CPT/HCPCS: 36415; 71046; 87635; 99283

== ENCOUNTER 2022-04-25 15:14 | Emergency (ER) | payer MEDICAID, SELFPAY ==
--- NOTE | ~2022-04-25 | CT_ITS ---
EXAMINATION: CT ABDOMEN AND PELVIS WITHOUT CONTRAST CLINICAL INFORMATION: R flank pain, dysuria, ? calculi . COMPARISON: 02/20/2021. TECHNIQUE: Multidetector volumetric imaging was performed from the superior aspect of the liver through the pubic symphysis without contrast per renal stone protocol. Sagittal and coronal reformatted images were obtained on the technologist workstation. This CT examination was performed using dose optimization techniques as appropriate, variously including the following: *Automated exposure control *Adjustment of mA and/or kV according to patient size (this includes techniques or standardized protocols for targeted exams where dose is matched to indication/reason for exam; i.e. extremities or head) *Use of iterative reconstruction technique DLP: 858 mGy-cm. FINDINGS: LUNG BASES: The visualized lung bases are unremarkable. LIVER, GALLBLADDER, BILIARY TREE: Diffuse fatty infiltration of the liver without focal hepatic lesion nor obvious biliary ductal dilatation. The gallbladder is unremarkable with no evidence of radiopaque gallstones, gallbladder wall thickening, or obvious pericholecystic inflammatory changes. PANCREAS: Unremarkable. SPLEEN: Unremarkable. ADRENAL GLANDS: Unremarkable. KIDNEYS AND URETERS: No intrarenal calculi. No hydronephrosis or obstructive changes. No perinephric stranding. Ureters are followed throughout their course up to the bladder without distal obstructing ureteric calculi. BLADDER: Decompressed but otherwise unremarkable GASTROINTESTINAL TRACT: Colon is unremarkable. Normal appearance to the appendix in the right lower quadrant. Small bowel anastomotic staple line seen in the mid abdomen without obstructive changes ABDOMINAL WALL: Postoperative changes. No significant herniation LYMPHOVASCULAR STRUCTURES: No lymphadenopathy. The aorta is unremarkable.. PELVIC VISCERA: Unremarkable. OSSEUS STRUCTURES: Unremarkable. CT/CT abdomen pelvis wo con IMPRESSION: Chronic appearing and postoperative changes as described. I do not appreciate any acute intra-abdominal process. No obstructive changes to the kidneys or collecting system.
[2022-04-25 15:41] VITALS: BP 116/70; PULSE 80; O2SAT 100
[2022-04-25 15:46] VITALS: BP 103/69; PULSE 80; RESP 18; TEMP 36.7; O2SAT 99; BMI 36.8
--- NOTE | 2022-04-25 15:51 | ECG_ITS ---
Test Reason : DIZZINESS Blood Pressure : / mmHG Vent. Rate : 067 BPM Atrial Rate : 067 BPM P-R Int : 178 ms QRS Dur : 098 ms QT Int : 394 ms P-R-T Axes : 001 045 056 degrees QTc Int : 416 ms Normal sinus rhythm Normal ECG When compared with ECG of 07-APR-2021 16:35, No significant change was found Referred By: Nydia Andre Electronically Signed By:JERRY GO
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
[2022-04-25] MEDS: 0.9 % Sodium Chloride 1,000 ML 999 ML IV (16:42)
[2022-04-25 16:57] LABS: MANUAL DIFF FLAG NO
[2022-04-25 17:03] LABS: Basophils Absolute Auto 0.1 X10*3/uL (0.0-0.2); Basophils Percent Auto 0.5 % (0-2); Eosinophils Absolute Auto 0.7 X10*3/uL (0.0-0.4); Eosinophils Percent Auto 4.5 % (0-4); Hematocrit 45.6 % (42.0-52.0); Hemoglobin 15.4 g/dl (14.0-18.0); Imm Gran Abs Auto 0.06 X10*3/uL (0.00-0.03); Imm Gran Pct Auto 0.4 % (0.0-0.4); Lymphocytes Absolute Auto 2.7 X10*3/uL (1.2-4.9); Mean Corpuscular HGB Conc 33.8 g/dl (31.0-36.0); Mean Corpuscular Hemoglobin 29.6 pg (27.0-33.0); Mean Corpuscular Volume 87.7 fL (80.0-98.0); Mean Platelet Volume 9.2 fL (9.4-12.4); Monocytes Absolute Auto 1.5 X10*3/uL (0.1-1.2); Monocytes Percent Auto 9.9 % (2-11); Neutrophils Absolute Auto 9.9 x10*3/uL (2.0-8.3); Neutrophils Percent Auto 66.7 % (45-73); Platelet Count 281 X10*3/uL (160-400); Red Cell Distribution Width 13.5 % (11.0-16.0); White Blood Count 14.9 X10*3/uL (4.8-10.8)
[2022-04-25 17:17] LABS: COVID-19 Test Negative (Negative); IDNOW Serial# 55D5AD1C
[2022-04-25 17:19] LABS: Alanine Aminotransferase 18 U/L (0-40); Albumin Level 4.2 g/dL (3.5-5.0); Alkaline Phosphatase 57 U/L (39-117); Anion Gap 14 (12-20); Aspartate Amino Transferase 15 U/L (5-37); Blood Urea Nitrogen 16 mg/dL (9-16); Calcium 9.2 mg/dL (8.4-10.2); Carbon Dioxide 29 mmol/L (22-29); Chloride 102 mmol/L (96-108); Creatinine Clr Calc Pharmacy 90.1; Estimated Glomerular Filt Rate > 60; Ethanol < 10 mg/dL; Glucose Random 89 mg/dL (60-115); Magnesium 2.4 mg/dL (1.6-2.6); Potassium 4.1 mmol/L (3.3-5.1); Sodium 141 mmol/L (135-145); Total Protein 7.3 g/dL (6.5-8.0)
[2022-04-25 17:22] LABS: Troponin-I High Sensitivity < 3.5 ng/L (<3.5-35.0)
[2022-04-25 18:06] LABS: Appearance Urine Turbid; Color Urine Dark Yellow; Glucose Urine UA Negative (Negative); Leukocyte Esterase Urine Moderate (2+) (Negative); Nitrite Urine Negative (Negative); PH 7.5 (5.0-8.0); Specific Gravity - Urine >= 1.030 (1.005-1.025); Urine Blood Negative (Negative); Urine Ketones 15 mg/dL (Negative); Urine Protein 30 (1+) mg/dL (Neg-Trace)
[2022-04-25 18:07] LABS: Amphetamine Screen Urine Not Detected (Not Detect); Barbiturates, Urine Not Detected (Not Detect); Benzodiazepines Screen Urine Not Detected (Not Detect); Cannabinoid Screen Urine Not Detected (Not Detect); Cocaine Screen Urine Not Detected (Not Detect); Fentanyl, urine POSITIVE (Not Detect); Opiate Screen Urine Not Detected (Not Detect); Phencyclidine Screen Urine Not Detected (Not Detect)
[2022-04-25 18:11] LABS: Bacteria Urine None Seen (None Seen); Hyaline Casts Urine 0-2 /LPF (0-2); Squamous Epithelial Cell Urine 0-2 /HPF (0-2); UACC Culture Trigger YES
[2022-04-25 21:28] VITALS: BP 122/65; PULSE 69; RESP 20; TEMP 36.4; O2SAT 98
[2022-04-26] MEDS: LORazepam 1 MG TABLET 2 MG PO (01:58)
[2022-04-26 06:24] VITALS: BP 127/68; PULSE 72; RESP 18; O2SAT 98
[2022-04-26 09:12] VITALS: BP 109/68; PULSE 58; RESP 16; O2SAT 98
[2022-04-26 12:00] VITALS: RESP 18
[2022-04-26 13:33] LABS: CT PCR NOT DETECTED (Not Detect.); NG PCR NOT DETECTED (Not Detect.)
--- NOTE | 2022-04-26 15:02 | PHA.MEDREC ---
Pharmacy Consult ? Medication Reconciliation Pharmacy has completed the medication reconciliation. Patient stressed the importance of his laxtivies. Patient takes Prunelax and a milky laxitive at home. Our best equivalent to the Prunelax is 2 tablets of Senna 8.6 mg. I informed PRADEEP Almonte. Marianna Masters, AudreyD
[2022-04-26] MEDS: Milk of Magnesia 30 ML ORAL.SUSP PO (17:00)
[2022-04-26] MEDS: polyethylene glycoL 3350 17 GM POWD.PACK PO (17:00)
[2022-04-26 17:23] VITALS: BP 125/78; PULSE 56; RESP 16; TEMP 36.4; O2SAT 98
[2022-04-26] MEDS: LORazepam 1 MG TABLET PO (22:59)
[2022-04-27 04:15] VITALS: BP 100/76; PULSE 68; RESP 16; TEMP 36; O2SAT 98
--- NOTE | 2022-04-27 06:24 | PC.NURSE ---
Patient slept through the night, no distress observed/reported, medication compliant, disposition per Care team is voluntary inpatient bed search, medication compliant, Ativan 1 mg po administered @ 2259 with + effect, constipation resolved, behavior appropriate and non concerning, VSS, will continue to monitor.
--- NOTE | 2022-04-27 07:45 | PC.NURSE ---
patient appears to remain asleep at present respirations are even and unlabored patient appears in no distress
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
[2022-04-27 10:12] VITALS: BP 118/77; PULSE 59; RESP 16; TEMP 37.1; O2SAT 98
[2022-04-27] MEDS: Ibuprofen 600 MG TABLET PO (10:23)
== END 2022-04-27 15:42 ==
PROVIDERS: Emergency Medicine; Nurse Practitioner Family; Emergency Provider Emergency Medicine
DX: R45.851 Suicidal ideations (principal); R30.0 Dysuria; Z20.822 Contact with and (suspected) exposure to COVID-19; D72.829 Elevated white blood cell count, unspecified; R53.1 Weakness; R51.9 Headache, unspecified; R42 Dizziness and giddiness; F43.10 Post-traumatic stress disorder, unspecified; F41.9 Anxiety disorder, unspecified; Z91.51 Personal history of suicidal behavior; F17.210 Nicotine dependence, cigarettes, uncomplicated; F19.10 Other psychoactive substance abuse, uncomplicated; Z79.899 Other long term (current) drug therapy
CPT/HCPCS: 74176; 80053; 80307; 81001; 82077; 83735; 84484; 85025; 87086; 87491; 87591; 87635; 93005; 96360; 96361; 99285

== ENCOUNTER 2022-04-30 10:10 | Emergency (ER) | payer MEDICAID, SELFPAY ==
--- NOTE | ~2022-04-30 | XR_ITS ---
EXAMINATION: XR ABDOMEN KUB CLINICAL INDICATION: Constipation, no bowel movement in 2 weeks. COMPARISON: CT scan of the abdomen and pelvis dated 04/25/2022. TECHNIQUE: AP view of the abdomen. FINDINGS: The bowel gas pattern is normal with no evidence of ileus or obstruction. No unusual soft tissue calcifications are noted. The bones are unremarkable. XR/XR KUB IMPRESSION: Nonobstructive bowel gas pattern. No significant colonic stool burden.
[2022-04-30 10:24] VITALS: BP 129/79; PULSE 61; RESP 16; TEMP 36.9; O2SAT 97; BMI 36.8
[2022-04-30 10:34] VITALS: BP 121/81
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
[2022-04-30] MEDS: polyethylene glycoL 3350 17 GM POWD.PACK PO (11:17)
[2022-04-30] MEDS: ondansetron HCL 4 MG/2 ML VIAL IVPUSH (11:17)
[2022-04-30] MEDS: 0.9 % Sodium Chloride 1,000 ML 999 ML IV (11:18)
[2022-04-30 11:32] LABS: MANUAL DIFF FLAG NO
[2022-04-30 11:34] LABS: Basophils Absolute Auto 0.1 X10*3/uL (0.0-0.2); Basophils Percent Auto 0.7 % (0-2); Eosinophils Absolute Auto 0.9 X10*3/uL (0.0-0.4); Eosinophils Percent Auto 8.9 % (0-4); Hematocrit 46.5 % (42.0-52.0); Hemoglobin 15.3 g/dl (14.0-18.0); Imm Gran Abs Auto 0.04 X10*3/uL (0.00-0.03); Imm Gran Pct Auto 0.4 % (0.0-0.4); Lymphocytes Absolute Auto 2.3 X10*3/uL (1.2-4.9); Lymphocytes Percent Auto 23.2 % (20-40); Mean Corpuscular HGB Conc 32.9 g/dl (31.0-36.0); Mean Corpuscular Hemoglobin 29.3 pg (27.0-33.0); Mean Corpuscular Volume 89.1 fL (80.0-98.0); Mean Platelet Volume 9.3 fL (9.4-12.4); Monocytes Percent Auto 10.3 % (2-11); Neutrophils Absolute Auto 5.6 x10*3/uL (2.0-8.3); Neutrophils Percent Auto 56.5 % (45-73); Platelet Count 268 X10*3/uL (160-400); Red Blood Count 5.22 X10*6/uL (4.60-5.80); Red Cell Distribution Width 13.4 % (11.0-16.0); White Blood Count 9.9 X10*3/uL (4.8-10.8)
[2022-04-30 11:49] LABS: Appearance Urine Clear; Color Urine Yellow; Glucose Urine UA Negative (Negative); Leukocyte Esterase Urine Trace (Negative); Nitrite Urine Negative (Negative); Specific Gravity - Urine 1.025 (1.005-1.025); Urine Blood Negative (Negative); Urine Ketones Negative (Negative); Urine Protein Negative (Neg-Trace)
[2022-04-30 11:51] LABS: Bacteria Urine None Seen (None Seen); Hyaline Casts Urine 0-2 /LPF (0-2); RBC Urine 0-2 /HPF (0-2); Squamous Epithelial Cell Urine 0-2 /HPF (0-2); WBC Urine 0-5 /HPF (0-5)
[2022-04-30 12:04] LABS: Alanine Aminotransferase 13 U/L (0-40); Alkaline Phosphatase 63 U/L (39-117); Anion Gap 13 (12-20); Aspartate Amino Transferase 13 U/L (5-37); Bilirubin Direct < 0.2 mg/dL (0.0-0.5); Bilirubin Total 0.4 mg/dL (0.0-1.0); Blood Urea Nitrogen 14 mg/dL (9-16); Calcium 8.9 mg/dL (8.4-10.2); Carbon Dioxide 29 mmol/L (22-29); Chloride 101 mmol/L (96-108); Creatinine Clr Calc Pharmacy 104.6; Estimated Glomerular Filt Rate > 60; Glucose Random 92 mg/dL (60-115); Lipase 26 U/L (8-78); Magnesium 2.3 mg/dL (1.6-2.6); Potassium 4.6 mmol/L (3.3-5.1); Sodium 138 mmol/L (135-145); Total Protein 7.1 g/dL (6.5-8.0)
[2022-04-30] MEDS: PEG 3350/Na Sulf,Bicarb,Cl/KCL 4,000 ML SOLN.RECON 4000 ML PO (13:06)
--- NOTE | 2022-04-30 14:16 | MHC.CARE ---
Plan for pt to be transported to [facility] at 6pm, BORIS Hammond was notified.
--- NOTE | 2022-04-30 22:41 | PC.NURSE ---
This US/Pct called [facility] at 1939 for an update on patients transfer,spoke to Harini she stated there is no trucks available and will keep trying to pass.At 2235 this Us called [facility] and spoke to Harini for an update,she stated no progress at this time. RN and Kiln Door Builder aware
[2022-05-01] VITALS: BP 122/74; PULSE 70; RESP 15; O2SAT 99
[2022-05-01] MEDS: Melatonin 3 MG TABLET PO (00:18)
[2022-05-01] MEDS: Acetaminophen 325 MG TABLET 650 MG PO (00:18)
[2022-05-01] MEDS: hydrOXYzine HCL 50 MG TABLET PO (00:18)
[2022-05-01] MEDS: QUEtiapine Fumarate 50 MG TABLET PO (00:18)
[2022-05-01] MEDS: Baclofen 10 MG TABLET PO ×2 (00:19→08:24)
--- NOTE | 2022-05-01 00:27 | PC.NURSE ---
[facility] called at 0020 spoke with Harini on update on transport she stated there are no trucks available and will have to wait until morning.Rn and Charge Nurse aware
[2022-05-01 08:17] VITALS: BP 112/84; PULSE 63; RESP 17; TEMP 36.6; O2SAT 99
== END 2022-05-01 12:02 | disposition home or self-care (01) ==
PROVIDERS: Physician Assistant; Emergency Provider Emergency Medicine
DX: K59.00 Constipation, unspecified (principal); R10.9 Unspecified abdominal pain; F19.10 Other psychoactive substance abuse, uncomplicated; F17.210 Nicotine dependence, cigarettes, uncomplicated
CPT/HCPCS: 36415; 74018; 80048; 80076; 81001; 83690; 83735; 85025; 96361; 96374; 99284; J2405

== ENCOUNTER 2022-06-16 18:19 | Inpatient (IN) | payer OTHER, SELFPAY ==
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
--- NOTE | ~2022-06-16 | XR_ITS ---
EXAMINATION: XR ABDOMEN KUB CLINICAL INDICATION: Constipation COMPARISON: Abdominal radiographs 04/30/2022 TECHNIQUE: AP view of the abdomen. FINDINGS: No evidence of large colonic stool burden. There is gas seen throughout the nondilated colon into the rectum. Previous small amount of formed stool in the cecum and ascending colon. No dilated air-filled small bowel loops. No appreciable bowel wall thickening. No gross large volume free air on this supine exam. No acute osseous abnormality. XR/XR KUB IMPRESSION: 1. Nonobstructive bowel gas pattern. 2. No evidence of significant colonic stool burden.
--- NOTE | ~2022-06-16 | US_ITS ---
EXAMINATION: US VENOUS WITH DOPPLER UPPER EXTREMITY, LEFT CLINICAL INFORMATION: Swelling lower left arm COMPARISON: None TECHNIQUE: Ultrasound of the upper extremity is performed using compression sonography and color and pulse Doppler flow with assessment of augmentation of flow. There is also imaging and Doppler assessment of the jugular and subclavian veins. Spectral analysis with color-flow imaging is performed. FINDINGS: Patent internal jugular, subclavian, axillary, and brachial veins. Thrombus present within the mid and distal (anatomically) basilic vein. Proximal basilic vein is patent. Cephalic, radial and ulnar veins are patent. US/US venous duplex UE LT IMPRESSION: * No DVT demonstrated in the left upper extremity. * Superficial venous thrombosis present within the mid and distal basilic vein.
[2022-06-16 18:39] VITALS: BP 112/71; PULSE 57; RESP 16; TEMP 36.6; O2SAT 98
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
[2022-06-16] MEDS: hydrOXYzine HCL 25 MG TABLET PO (21:11)
--- NOTE | 2022-06-17 | ECG_ITS ---
Test Reason : cp, overdose Blood Pressure : / mmHG Vent. Rate : 056 BPM Atrial Rate : 056 BPM P-R Int : 174 ms QRS Dur : 090 ms QT Int : 404 ms P-R-T Axes : 028 082 077 degrees QTc Int : 389 ms Sinus bradycardia RSR' or QR pattern in V1 suggests right ventricular conduction delay Otherwise normal ECG When compared with ECG of 25-APR-2022 17:47, No significant change was found Referred By: Beronica Walker Electronically Signed By:MARY LONDON MD
[2022-06-17] MEDS: Milk of Magnesia 30 ML ORAL.SUSP PO ×2 (03:44→08:27)
[2022-06-17 06:00] VITALS: BP 135/70; PULSE 65; RESP 16; TEMP 36.6; O2SAT 98
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
[2022-06-17 09:27] LABS: MANUAL DIFF FLAG NO
[2022-06-17 09:30] LABS: Basophils Absolute Auto 0.1 X10*3/uL (0.0-0.2); Basophils Percent Auto 0.8 % (0-2); Eosinophils Absolute Auto 0.9 X10*3/uL (0.0-0.4); Eosinophils Percent Auto 9.9 % (0-4); Hematocrit 48.2 % (42.0-52.0); Hemoglobin 16.1 g/dl (14.0-18.0); Imm Gran Abs Auto 0.02 X10*3/uL (0.00-0.03); Imm Gran Pct Auto 0.2 % (0.0-0.4); Lymphocytes Percent Auto 22.4 % (20-40); Mean Corpuscular HGB Conc 33.4 g/dl (31.0-36.0); Mean Corpuscular Hemoglobin 29.7 pg (27.0-33.0); Mean Corpuscular Volume 88.9 fL (80.0-98.0); Monocytes Absolute Auto 0.9 X10*3/uL (0.1-1.2); Monocytes Percent Auto 9.6 % (2-11); Neutrophils Absolute Auto 5.1 x10*3/uL (2.0-8.3); Neutrophils Percent Auto 57.1 % (45-73); Platelet Count 289 X10*3/uL (160-400); Red Blood Count 5.42 X10*6/uL (4.60-5.80); Red Cell Distribution Width 13.2 % (11.0-16.0)
[2022-06-17 09:55] LABS: Alanine Aminotransferase 8 U/L (0-40); Albumin Level 4.1 g/dL (3.5-5.0); Alkaline Phosphatase 65 U/L (39-117); Anion Gap 14 (12-20); Aspartate Amino Transferase 13 U/L (5-37); Bilirubin Total 0.5 mg/dL (0.0-1.0); Blood Urea Nitrogen 11 mg/dL (9-16); Calcium 9.5 mg/dL (8.4-10.2); Carbon Dioxide 29 mmol/L (22-29); Chloride 101 mmol/L (96-108); Cholesterol 154 mg/dL; Estimated Glomerular Filt Rate 59; Glucose Fasting 60 mg/dL (60-99); HDL Cholesterol 38 mg/dL; LDL Cholesterol Calculated 65 mg/dl; Potassium 3.9 mmol/L (3.3-5.1); Sodium 140 mmol/L (135-145); Total Protein 7.1 g/dL (6.5-8.0); Triglycerides 256 mg/dL
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
[2022-06-17] MEDS: hydrOXYzine HCL 25 MG TABLET PO (20:30)
[2022-06-17 21:03] VITALS: BP 118/84; PULSE 85; RESP 18; TEMP 36.7; O2SAT 98
[2022-06-17] MEDS: LORazepam 1 MG TABLET PO (21:25)
[2022-06-17] MEDS: Ibuprofen 400 MG TABLET PO (21:25)
[2022-06-17] MEDS: polyethylene glycoL 3350 17 GM POWD.PACK PO (21:26)
[2022-06-18] MEDS: Milk of Magnesia 30 ML ORAL.SUSP PO (08:16)
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
[2022-06-18 09:30] VITALS: BP 100/55; PULSE 66; TEMP 36.6; O2SAT 97
[2022-06-18] MEDS: Lactulose 20 GM/30 ML SOLUTION 30 GM PO ×2 (09:49→20:56)
[2022-06-18] MEDS: polyethylene glycoL 3350 17 GM POWD.PACK PO ×2 (09:49→20:57)
[2022-06-18] MEDS: cloNIDine HCL 0.1 MG TABLET PO ×3 (13:58→23:16)
--- NOTE | 2022-06-18 14:11 | PM.EVENT ---
Event Note Date of Service: 06/18/22 Event Note: Venancio had to be transferedto to open up a bed to admit another patient fro the ER who is the son of a nurse on [facility]%
[2022-06-18] MEDS: Ibuprofen 400 MG TABLET PO (17:15)
[2022-06-18 18:00] VITALS: BP 128/71; PULSE 72; TEMP 36.8; O2SAT 98
[2022-06-18] MEDS: Lactulose 20 GM/30 ML SOLUTION PO (18:04)
[2022-06-19 06:00] VITALS: BP 86/49; PULSE 56; RESP 18; TEMP 36.4; O2SAT 96
[2022-06-19] MEDS: polyethylene glycoL 3350 17 GM POWD.PACK PO ×2 (08:41→22:44)
[2022-06-19] MEDS: Lactulose 20 GM/30 ML SOLUTION 30 GM PO ×2 (08:41→22:44)
[2022-06-19] MEDS: cloNIDine HCL 0.1 MG TABLET PO ×2 (10:52→22:49)
[2022-06-19 10:53] VITALS: BP 102/66; PULSE 72; RESP 18
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
[2022-06-19 18:00] VITALS: BP 115/80; PULSE 72; TEMP 36.5; O2SAT 96
--- NOTE | 2022-06-19 22:16 | PC.NURSE ---
Addendum entered by Manolo Aleman RN 06/19/22 22:52: Venancio is seen by the hospitalist Toño, stat ultrasound ordered. Original Note: Pt is alert and oriented. VSS. Pt reports swollen basilic/ulna vein on left hand. warm to the touch and tender on assessment. Provider Deepa Kennedy and hospitalist Toño notified. No new orders given.
[2022-06-19] MEDS: Lithium Carbonate ER 300 MG TABLET.ER PO (22:44)
[2022-06-20] MEDS: Ibuprofen 400 MG TABLET PO (05:12)
[2022-06-20] MEDS: Milk of Magnesia 30 ML ORAL.SUSP PO (05:13)
--- NOTE | 2022-06-20 06:55 | P.EN_ITS ---
Event Note Date of Service: 06/20/22 Event Note: i was called to evaluate patient for a vein that is swollen in his left arm. He was at [facility] [place] on monday and had an IV placed there, and since then he has swollen vein and painful. Venous duplex was obtianed showed superficial venous thrombosis present within the mid and distal basilic vein. I recommended warm compress and Tylenol for this patient. If continues to have significant pain consider an official consult
[2022-06-20 08:56] VITALS: BP 101/65; PULSE 59; RESP 16; TEMP 36.3; O2SAT 99
[2022-06-20] MEDS: polyethylene glycoL 3350 17 GM POWD.PACK PO (08:58)
[2022-06-20] MEDS: Lactulose 20 GM/30 ML SOLUTION 30 GM PO ×2 (08:58→21:23)
[2022-06-20 10:36] LABS: TSH reflex Free T4 2.13 uIU/mL (0.32-4.0)
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
--- NOTE | 2022-06-20 16:44 | PM.EVENT ---
Event Note Date of Service: 06/20/22 Event Note: GI consult dictated Slow transit constipation Miralax dose doubled to 34 g bid. The dose may be increased as needed.
[2022-06-20 18:00] VITALS: BP 121/69; PULSE 60; RESP 18; O2SAT 98
[2022-06-20] MEDS: polyethylene glycoL 3350 17 GM POWD.PACK 34 GM PO (21:23)
[2022-06-20] MEDS: Lithium Carbonate ER 300 MG TABLET.ER PO (21:23)
[2022-06-20] MEDS: cloNIDine HCL 0.1 MG TABLET PO (22:33)
--- NOTE | 2022-06-21 04:46 | CONS_ITS ---
DATE OF SERVICE: 06/20/2022 REFERRING PHYSICIAN: Gavin Johnson MD REASON FOR CONSULTATION: Constipation. HISTORY OF PRESENT ILLNESS: The patient is a pleasant 47-year-old man, who was admitted to the inpatient psychiatric unit on June 17 after a multi-drug overdose. He reports a longstanding history of chronic constipated symptoms, requiring [id number] laxatives on a daily basis since surgery for a bowel resection that was done approximately 8 years ago by his report. He has never undergone colonoscopy. At home, he will use larn-lsi-zfxcknt laxatives on a daily basis to reduce a bowel movement about once every 2 or 3 days. Since admission, he has been treated with MiraLAX and lactulose, but reports no bowel movement in approximately a week and a half. Evaluation with imaging has included plain film of the abdomen on June 19, which showed no obstructive bowel gas pattern and no evidence of significant colonic stool burden. PAST MEDICAL HISTORY: 1. Asthma. 2. Substance abuse. 3. Anxiety/depression. 4. Bowel obstruction resulting in partial bowel resection. 5. PTSD. CURRENT MEDICATIONS: Current medication list is reviewed in the chart. ALLERGIES: THERE ARE NONE REPORTED. FAMILY HISTORY: This is reviewed with the patient and is negative for GI malignancy. SOCIAL HISTORY: There is no current alcohol use by his report. He did use cocaine prior to his overdose. REVIEW OF SYSTEMS: SKIN: No pruritus. HEENT: Negative. CARDIOPULMONARY: He denies shortness of breath or chest pain. GASTROINTESTINAL: As above. GENITOURINARY: Negative. NEUROPSYCHIATRIC: Negative. PHYSICAL EXAMINATION: GENERAL: Shows a pleasant male. VITAL SIGNS: Reviewed in the electronic medical record and are stable. SKIN: Anicteric. HEENT: Shows no scleral icterus. NECK: Without lymphadenopathy or thyromegaly. LUNGS: Clear. HEART: Shows regular rate and rhythm. S1, S2. No murmur. ABDOMEN: Protuberant. Bowel sounds are present. There is no tenderness to palpation. EXTREMITIES: Without edema. LABORATORY DATA AND RADIOGRAPHIC STUDIES: Reviewed. IMPRESSION: Slow transit constipation. I agree with treating him with laxatives and I have increased his dose of MiraLAX to 34 g b.i.d., this can be increased as necessary. I did tell him that he should be considering screening colonoscopy based on his age and constipated symptoms. This can be arranged as an outpatient. Thanks for asking me to see him. I will follow him in the hospital with you. MD ISAI Diaz/EVELYN / [id number]
[2022-06-21] MEDS: Ibuprofen 400 MG TABLET PO ×2 (05:25→20:17)
[2022-06-21] MEDS: Milk of Magnesia 30 ML ORAL.SUSP PO (05:25)
[2022-06-21 06:00] VITALS: BP 91/47; PULSE 88; RESP 16; TEMP 36.4; O2SAT 99
[2022-06-21] MEDS: polyethylene glycoL 3350 17 GM POWD.PACK 34 GM PO ×2 (08:58→22:35)
[2022-06-21] MEDS: Lactulose 20 GM/30 ML SOLUTION 30 GM PO ×2 (08:58→22:35)
[2022-06-21] MEDS: cloNIDine HCL 0.1 MG TABLET PO (14:55)
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
[2022-06-21] MEDS: FLUoxetine HCl Oral Solution 20 MG/5 ML SOLUTION PO (15:49)
[2022-06-21 16:49] VITALS: BP 109/57; PULSE 58; TEMP 36.6
[2022-06-21] MEDS: Lidocaine 4 % Patch ADH..PATCH 1 PATCH TRANSDERMA (20:05)
[2022-06-22] MEDS: Ibuprofen 400 MG TABLET PO ×2 (05:47→12:48)
[2022-06-22] MEDS: Milk of Magnesia 30 ML ORAL.SUSP PO (05:47)
[2022-06-22 08:17] VITALS: BP 110/61; PULSE 54; RESP 16; TEMP 37; O2SAT 97
[2022-06-22] MEDS: Lactulose 20 GM/30 ML SOLUTION 30 GM PO ×2 (08:39→23:32)
[2022-06-22] MEDS: FLUoxetine HCl Oral Solution 20 MG/5 ML SOLUTION PO (08:39)
[2022-06-22] MEDS: polyethylene glycoL 3350 17 GM POWD.PACK 34 GM PO ×2 (08:40→23:42)
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
--- NOTE | 2022-06-22 15:36 | PM.EVENT ---
Event Note Date of Service: 06/22/22 Event Note: Pt seen in follow up briefly for thrombophlebitis LURey. Had IV placed in left decubitus aspect of arm about 1 week ago. Developed pain and inflammation of the vein. DVT study performed 06/19 negative for DVT, but showed superficial thrombophlebitis. Pt has been using warm compresses and taking ibuprofen. Pt reassured. Discussed that full resolution can take 3-4 weeks. Continue nsaids and warm compresses on discharge and follow up with pcp prn.
[2022-06-22 18:00] VITALS: BP 127/74; PULSE 60; RESP 20; TEMP 36.8; O2SAT 98
[2022-06-22] MEDS: cloNIDine HCL 0.1 MG TABLET PO (23:31)
[2022-06-23 06:00] VITALS: BP 145/87; PULSE 70; TEMP 36.8; O2SAT 98
[2022-06-23] MEDS: FLUoxetine HCl Oral Solution 20 MG/5 ML SOLUTION PO (08:50)
[2022-06-23] MEDS: Lactulose 20 GM/30 ML SOLUTION 30 GM PO ×2 (08:51→22:44)
[2022-06-23] MEDS: Lidocaine 4 % Patch ADH..PATCH 1 PATCH TRANSDERMA (08:51)
[2022-06-23] MEDS: polyethylene glycoL 3350 17 GM POWD.PACK 34 GM PO ×2 (08:52→22:44)
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
[2022-06-23] MEDS: Nicotine Polacrilex 2 MG GUM BUCCAL (16:26)
[2022-06-23 18:00] VITALS: BP 160/100; PULSE 72; TEMP 36.8; O2SAT 98
[2022-06-23] MEDS: Ibuprofen 400 MG TABLET PO (19:12)
[2022-06-23] MEDS: cloNIDine HCL 0.1 MG TABLET PO (22:50)
[2022-06-24 08:30] VITALS: BP 103/66; PULSE 58; TEMP 36.5
[2022-06-24] MEDS: Lactulose 20 GM/30 ML SOLUTION 30 GM PO (09:08)
[2022-06-24] MEDS: FLUoxetine HCl Oral Solution 20 MG/5 ML SOLUTION PO (09:08)
[2022-06-24] MEDS: Lidocaine 4 % Patch ADH..PATCH 1 PATCH TRANSDERMA (09:09)
[2022-06-24] MEDS: polyethylene glycoL 3350 17 GM POWD.PACK 34 GM PO (09:09)
[2022-06-24] MEDS: hydrOXYzine HCL 25 MG TABLET PO (10:46)
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
[2022-06-24 23:30] VITALS: BP 128/68; PULSE 72; RESP 18; TEMP 36.7; O2SAT 97
[2022-06-24] MEDS: cloNIDine HCL 0.1 MG TABLET PO (23:42)
[2022-06-25 08:15] VITALS: BP 111/71; PULSE 59; RESP 20; TEMP 36.8; O2SAT 98
[2022-06-25] MEDS: Ibuprofen 400 MG TABLET PO (08:30)
[2022-06-25] MEDS: polyethylene glycoL 3350 17 GM POWD.PACK 34 GM PO (08:30)
[2022-06-25] MEDS: FLUoxetine HCl Oral Solution 20 MG/5 ML SOLUTION PO (08:30)
[2022-06-25] MEDS: Lidocaine 4 % Patch ADH..PATCH 1 PATCH TRANSDERMA (08:34)
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
[2022-06-26] MEDS: polyethylene glycoL 3350 17 GM POWD.PACK 34 GM PO ×2 (02:17→09:37)
[2022-06-26] MEDS: Lactulose 20 GM/30 ML SOLUTION 30 GM PO (02:19)
[2022-06-26 02:25] VITALS: BP 149/75; PULSE 60; RESP 18; TEMP 36.3; O2SAT 100
[2022-06-26] MEDS: cloNIDine HCL 0.1 MG TABLET PO (02:26)
[2022-06-26 09:10] VITALS: BP 111/61; PULSE 53; RESP 20; TEMP 36.3; O2SAT 99
[2022-06-26] MEDS: FLUoxetine HCl Oral Solution 20 MG/5 ML SOLUTION PO (09:37)
[2022-06-26] MEDS: Ibuprofen 400 MG TABLET PO ×2 (09:46→16:22)
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
[2022-06-26] MEDS: Nicotine Polacrilex 2 MG GUM BUCCAL (14:17)
[2022-06-26] MEDS: Lidocaine 4 % Patch ADH..PATCH 1 PATCH TRANSDERMA (14:18)
[2022-06-26 21:05] VITALS: BP 112/77; PULSE 55; RESP 18; TEMP 36.4; O2SAT 98
[2022-06-27] MEDS: polyethylene glycoL 3350 17 GM POWD.PACK 34 GM PO ×3 (04:01→23:02)
[2022-06-27] MEDS: Lactulose 20 GM/30 ML SOLUTION 30 GM PO ×2 (04:01→23:03)
[2022-06-27 06:00] VITALS: BP 116/65; PULSE 60; TEMP 36.4; O2SAT 92
[2022-06-27] MEDS: FLUoxetine HCl Oral Solution 20 MG/5 ML SOLUTION PO (08:47)
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
[2022-06-27 21:29] VITALS: BP 117/82; PULSE 61; RESP 16; TEMP 36.4; O2SAT 97
[2022-06-27] MEDS: Mirtazapine 15 MG TABLET PO (23:01)
[2022-06-28 08:30] VITALS: BP 131/83; PULSE 61; RESP 17; TEMP 36.4; O2SAT 98
[2022-06-28] MEDS: polyethylene glycoL 3350 17 GM POWD.PACK 34 GM PO (08:35)
[2022-06-28] MEDS: FLUoxetine HCl 20 MG CAPSULE PO (08:36)
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
[2022-06-28] MEDS: Nicotine Polacrilex 2 MG GUM BUCCAL (15:37)
== END 2022-06-28 16:00 | DRG 751 ==
LOC: HO.PADLT16 06-17 16:22 → HO.PM5 06-18 14:08 → HO.PADLT16 06-24 13:19
PROVIDERS: Psychiatry & Neurology Psychiatry; Registered Nurse; Admitting Provider Psychiatry & Neurology Psychiatry; PCP Nurse Practitioner Primary Care; Visit Provider Psychiatry & Neurology Psychiatry
DX: F33.9 Major depressive disorder, recurrent, unspecified (principal); R45.851 Suicidal ideations; I82.612 Acute embolism and thrombosis of superficial veins of left upper extremity; F43.10 Post-traumatic stress disorder, unspecified; F19.10 Other psychoactive substance abuse, uncomplicated; K59.01 Slow transit constipation; I49.8 Other specified cardiac arrhythmias; J45.40 Moderate persistent asthma, uncomplicated; M54.50 Low back pain, unspecified; G89.29 Other chronic pain; Z59.02 Unsheltered homelessness; Z91.51 Personal history of suicidal behavior; Z79.899 Other long term (current) drug therapy
CPT/HCPCS: 36415; 71045; 74018; 80053; 80061; 84443; 85025; 93005; 93971

== ENCOUNTER 2022-07-25 15:33 | Emergency (ER) | payer MEDICAID, SELFPAY ==
[2022-07-25 15:39] VITALS: BP 124/85; PULSE 62; O2SAT 96
[2022-07-25 16:01] VITALS: BP 154/93; PULSE 63; RESP 18; TEMP 36.6; O2SAT 97; BMI 36.1
--- NOTE | 2022-07-25 16:02 | ECG_ITS ---
Test Reason : SHORTNESS OF BREATH Blood Pressure : / mmHG Vent. Rate : 061 BPM Atrial Rate : 061 BPM P-R Int : 186 ms QRS Dur : 098 ms QT Int : 442 ms P-R-T Axes : 022 011 080 degrees QTc Int : 444 ms Normal sinus rhythm RSR' or QR pattern in V1 suggests right ventricular conduction delay Brugada pattern, type [address] abnormality Abnormal ECG When compared with ECG of 17-JUN-2022 13:39, T wave inversion more evident in Anterior leads QT has lengthened Referred By: Nydia Andre Electronically Signed By:MARY LONDON MD
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
[2022-07-25 16:48] LABS: COVID-19 Test Negative (Negative); IDNOW Serial# 9DB6401D
[2022-07-25 16:52] LABS: MANUAL DIFF FLAG NO
[2022-07-25 17:02] LABS: Basophils Absolute Auto 0.1 X10*3/uL (0.0-0.2); Basophils Percent Auto 0.8 % (0-2); Eosinophils Absolute Auto 0.5 X10*3/uL (0.0-0.4); Eosinophils Percent Auto 5.1 % (0-4); Hematocrit 45.6 % (42.0-52.0); Hemoglobin 15.4 g/dl (14.0-18.0); Imm Gran Abs Auto 0.04 X10*3/uL (0.00-0.03); Imm Gran Pct Auto 0.4 % (0.0-0.4); Lymphocytes Absolute Auto 2.7 X10*3/uL (1.2-4.9); Lymphocytes Percent Auto 25.5 % (20-40); Mean Corpuscular HGB Conc 33.8 g/dl (31.0-36.0); Mean Corpuscular Hemoglobin 29.7 pg (27.0-33.0); Mean Platelet Volume 9.3 fL (9.4-12.4); Monocytes Absolute Auto 0.9 X10*3/uL (0.1-1.2); Monocytes Percent Auto 8.4 % (2-11); Neutrophils Absolute Auto 6.3 x10*3/uL (2.0-8.3); Neutrophils Percent Auto 59.8 % (45-73); Platelet Count 268 X10*3/uL (160-400); Red Blood Count 5.18 X10*6/uL (4.60-5.80); Red Cell Distribution Width 13.2 % (11.0-16.0); White Blood Count 10.5 X10*3/uL (4.8-10.8)
[2022-07-25 17:17] LABS: Alanine Aminotransferase 10 U/L (0-40); Albumin Level 4.1 g/dL (3.5-5.0); Alkaline Phosphatase 63 U/L (39-117); Anion Gap 13 (12-20); Aspartate Amino Transferase 13 U/L (5-37); Bilirubin Total 0.6 mg/dL (0.0-1.0); Blood Urea Nitrogen 11 mg/dL (9-16); Calcium 8.9 mg/dL (8.4-10.2); Carbon Dioxide 24 mmol/L (22-29); Chloride 102 mmol/L (96-108); Creatinine Clr Calc Pharmacy 98.1; Estimated Glomerular Filt Rate > 60; Ethanol < 10 mg/dL; Glucose Random 114 mg/dL (60-115); Potassium 3.6 mmol/L (3.3-5.1); Sodium 135 mmol/L (135-145); Total Protein 7.1 g/dL (6.5-8.0)
--- NOTE | 2022-07-25 18:11 | PHA.MEDREC ---
Pharmacy Consult ? Medication Reconciliation Pharmacy has completed the medication reconciliation. Patient reported all medications. Marianna Masters, AudreyD
[2022-07-25 19:39] LABS: Appearance Urine Clear; Color Urine Yellow; Glucose Urine UA Negative (Negative); Leukocyte Esterase Urine Small (1+) (Negative); Nitrite Urine Negative (Negative); Specific Gravity - Urine 1.015 (1.005-1.025); UMIC TRIGGER UACC YES; Urine Blood Negative (Negative); Urine Ketones Negative (Negative); Urine Protein Negative (Neg-Trace)
[2022-07-25 19:44] LABS: Bacteria Urine None Seen (None Seen); Hyaline Casts Urine 0-2 /LPF (0-2); RBC Urine 0-2 /HPF (0-2); Squamous Epithelial Cell Urine 0-2 /HPF (0-2); UACC Culture Trigger YES
[2022-07-25 19:47] LABS: Amphetamine Screen Urine Not Detected (Not Detect); Barbiturates, Urine POSITIVE (Not Detect); Benzodiazepines Screen Urine Not Detected (Not Detect); Cannabinoid Screen Urine Not Detected (Not Detect); Cocaine Screen Urine Not Detected (Not Detect); Fentanyl, urine Not Detected (Not Detect); Opiate Screen Urine Not Detected (Not Detect); Phencyclidine Screen Urine Not Detected (Not Detect)
[2022-07-25] MEDS: diphenhydrAMINE HCL 25 MG CAPSULE 50 MG PO (23:29)
[2022-07-25] MEDS: Montelukast Sodium 10 MG TABLET PO (23:29)
[2022-07-26 00:52] VITALS: BP 130/90; PULSE 57; RESP 16; TEMP 36.8; O2SAT 97
[2022-07-26] MEDS: LORazepam 1 MG TABLET 2 MG PO (03:20)
[2022-07-26 03:39] VITALS: BP 142/92; PULSE 52; RESP 16; TEMP 36.8; O2SAT 96
[2022-07-26 06:21] VITALS: RESP 18
--- NOTE | 2022-07-26 06:58 | MHC.CARE ---
Smart sheet submitted
[2022-07-26] MEDS: Sennosides 8.6 MG TABLET 17.2 MG PO (07:45)
[2022-07-26] MEDS: Multivitamin TABLET 1 TAB PO (07:46)
[2022-07-26] MEDS: Lactulose 20 GM/30 ML SOLUTION 30 GM PO (07:46)
[2022-07-26] MEDS: polyethylene glycoL 3350 17 GM POWD.PACK 34 GM PO (07:46)
[2022-07-26] MEDS: FLUoxetine HCl 20 MG CAPSULE PO (07:46)
[2022-07-26] MEDS: Fluticasone/Vilanterol 200/25 BLST.W.DEV 1 PUFF INHALE (08:59)
[2022-07-26 09:00] VITALS: PULSE 52; RESP 18; O2SAT 96
--- NOTE | 2022-07-26 09:47 | MHC.RECOVRN ---
Met with pt in [facility] to discuss substance use. Pt does not qualify, nor is interested, in [facility]. Pt reports last use of cocaine and opiates 2+ months ago. Pt reports recently being at [facility] and conducting a self directed discharge on . Pt is looking for housing. Pt educated regarding recovery resources and supports, interested in [facility]. Broad bedsearch conducted, no bed available today. Furthermore, pt would need 30 days of medication to enter into [facility], which pt does not have. Pt provided with recovery resources and encouraged to follow up outpatient.
--- NOTE | 2022-07-26 10:22 | MHC.RECOVRN ---
Pt will be transported to [facility] via [facility] upon discharge.
--- NOTE | 2022-07-26 10:56 | PC.NURSE ---
patient a/ox4 went over discharge instructions as ordered by provider . patient declined offer to go to [facility] room in [place] for detox outpatient care . patient to return if he reconsiders . no questions at this time .
== END 2022-07-26 11:21 ==
PROVIDERS: Nurse Practitioner Family; Emergency Provider Emergency Medicine; PCP Nurse Practitioner Primary Care
DX: R45.851 Suicidal ideations (principal); R45.850 Homicidal ideations; I49.8 Other specified cardiac arrhythmias; Z20.822 Contact with and (suspected) exposure to COVID-19; F41.9 Anxiety disorder, unspecified; F32.A Depression, unspecified; F17.210 Nicotine dependence, cigarettes, uncomplicated; F43.10 Post-traumatic stress disorder, unspecified; Z91.51 Personal history of suicidal behavior; Z79.899 Other long term (current) drug therapy
CPT/HCPCS: 80053; 80307; 81001; 82077; 85025; 87086; 87635; 93005; 94640; 99285

== ENCOUNTER 2022-07-27 04:17 | Emergency (ER) | payer MEDICAID, SELFPAY ==
--- NOTE | 2022-07-27 04:00 | ECG_ITS ---
Test Reason : OVERDOSE Blood Pressure : / mmHG Vent. Rate : 070 BPM Atrial Rate : 070 BPM P-R Int : 174 ms QRS Dur : 098 ms QT Int : 412 ms P-R-T Axes : 002 059 067 degrees QTc Int : 444 ms Normal sinus rhythm Brugada pattern, type 1 Abnormal ECG When compared to the previous EKG of No significant changes seen Referred By: Bandar Issa Electronically Signed By:Raghav Pak
[2022-07-27 06:26] LABS: MANUAL DIFF FLAG NO
[2022-07-27 06:33] LABS: Basophils Absolute Auto 0.1 X10*3/uL (0.0-0.2); Basophils Percent Auto 0.3 % (0-2); Eosinophils Absolute Auto 0.2 X10*3/uL (0.0-0.4); Eosinophils Percent Auto 1.2 % (0-4); Hematocrit 46.6 % (42.0-52.0); Hemoglobin 15.8 g/dl (14.0-18.0); Imm Gran Abs Auto 0.06 X10*3/uL (0.00-0.03); Imm Gran Pct Auto 0.4 % (0.0-0.4); Lymphocytes Absolute Auto 2.2 X10*3/uL (1.2-4.9); Lymphocytes Percent Auto 15.3 % (20-40); Mean Corpuscular HGB Conc 33.9 g/dl (31.0-36.0); Mean Corpuscular Hemoglobin 30.2 pg (27.0-33.0); Mean Corpuscular Volume 88.9 fL (80.0-98.0); Mean Platelet Volume 9.4 fL (9.4-12.4); Monocytes Absolute Auto 1.5 X10*3/uL (0.1-1.2); Monocytes Percent Auto 10.4 % (2-11); Neutrophils Absolute Auto 10.6 x10*3/uL (2.0-8.3); Neutrophils Percent Auto 72.4 % (45-73); Platelet Count 283 X10*3/uL (160-400); Red Blood Count 5.24 X10*6/uL (4.60-5.80); Red Cell Distribution Width 13.4 % (11.0-16.0); SCAN SMEAR FLAG 1; White Blood Count 14.6 X10*3/uL (4.8-10.8)
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
[2022-07-27 08:21] LABS: Acetaminophen LAB < 1 mcg/mL (<30); Alanine Aminotransferase 14 U/L (0-40); Albumin Level 4.4 g/dL (3.5-5.0); Alkaline Phosphatase 69 U/L (39-117); Anion Gap 16 (12-20); Aspartate Amino Transferase 17 U/L (5-37); Bilirubin Direct 0.2 mg/dL (0.0-0.5); Bilirubin Total 0.4 mg/dL (0.0-1.0); Blood Urea Nitrogen 11 mg/dL (9-16); Calcium 9.6 mg/dL (8.4-10.2); Carbon Dioxide 23 mmol/L (22-29); Chloride 103 mmol/L (96-108); Estimated Glomerular Filt Rate > 60; Glucose Random 92 mg/dL (60-115); Salicylate < 5.0 mg/dL (15-30); Sodium 138 mmol/L (135-145); Total Protein 7.4 g/dL (6.5-8.0)
[2022-07-27] MEDS: Ibuprofen 600 MG TABLET PO (08:23)
--- NOTE | 2022-07-27 08:46 | PC.NURSE ---
[facility] CONSULT SENT
[2022-07-27 11:32] LABS: COVID-19 Test Negative (Negative); IDNOW Serial# BCCEAD1C
--- NOTE | 2022-07-27 11:56 | ECG_ITS ---
Test Reason : MED CLEARANCE Blood Pressure : / mmHG Vent. Rate : 064 BPM Atrial Rate : 064 BPM P-R Int : 168 ms QRS Dur : 090 ms QT Int : 430 ms P-R-T Axes : -04 038 070 degrees QTc Int : 443 ms Normal sinus rhythm RSR' or QR pattern in V1 suggests right ventricular conduction delay Nonspecific ST and T wave abnormality Abnormal ECG Low voltage QRS When compared with ECG of 27-JUL-2022 04:00, Nonspecific ST abnormality Inferior leads is new Referred By: Bandar Issa Electronically Signed By:MARY LONDON MD
[2022-07-27 12:14] LABS: Ethanol < 10 mg/dL
--- NOTE | 2022-07-27 12:21 | ECG_ITS ---
Test Reason : MED CLEARANCE Blood Pressure : / mmHG Vent. Rate : 066 BPM Atrial Rate : 066 BPM P-R Int : 186 ms QRS Dur : 088 ms QT Int : 434 ms P-R-T Axes : 020 022 075 degrees QTc Int : 454 ms Normal sinus rhythm Brugada ECG pattern Abnormal ECG When compared with ECG of 27-JUL-2022 12:58, No significant change was found Referred By: Bandar Issa Electronically Signed By:Raghav Pak
[2022-07-27 14:48] LABS: Appearance Urine Clear; Color Urine Yellow; Glucose Urine UA Negative (Negative); Leukocyte Esterase Urine Small (1+) (Negative); Nitrite Urine Negative (Negative); Specific Gravity - Urine 1.015 (1.005-1.025); UMIC TRIGGER UACC YES; Urine Blood Negative (Negative); Urine Ketones Negative (Negative); Urine Protein Negative (Neg-Trace)
[2022-07-27 14:49] VITALS: BP 132/75; PULSE 68; RESP 18; TEMP 36.6; O2SAT 98
[2022-07-27 14:56] LABS: Bacteria Urine None Seen (None Seen); Hyaline Casts Urine 0-2 /LPF (0-2); RBC Urine 0-2 /HPF (0-2); Squamous Epithelial Cell Urine 0-2 /HPF (0-2); UACC Culture Trigger YES; WBC Urine 0-5 /HPF (0-5)
[2022-07-27 15:15] LABS: Amphetamine Screen Urine Not Detected (Not Detect); Barbiturates, Urine POSITIVE (Not Detect); Benzodiazepines Screen Urine Not Detected (Not Detect); Cannabinoid Screen Urine Not Detected (Not Detect); Cocaine Screen Urine POSITIVE (Not Detect); Fentanyl, urine Not Detected (Not Detect); Opiate Screen Urine Not Detected (Not Detect); Phencyclidine Screen Urine Not Detected (Not Detect)
--- NOTE | 2022-07-27 17:12 | MHC.CARE ---
Pt is an EATS bed search. CARE Team will continue the search in the morning and will enlist the aid of the Recovery Team.
[2022-07-27 18:09] VITALS: BP 129/84; PULSE 64; RESP 15; TEMP 36.6; O2SAT 96
[2022-07-27 19:32] VITALS: BP 113/62; PULSE 67; TEMP 36.6; O2SAT 93
[2022-07-27 23:59] VITALS: BP 123/85; PULSE 62; RESP 17; TEMP 36.7; O2SAT 97
--- NOTE | 2022-07-28 03:27 | PC.NURSE ---
assumed care of patient at this time. patient is sleeping, no signs of distress. resp are equal and unlabored.
[2022-07-28 05:51] VITALS: BP 115/60; PULSE 62; RESP 14; TEMP 36.6; O2SAT 97
--- NOTE | 2022-07-28 06:16 | PC.NURSE ---
patient ambulated to the bathroom with strong steady gait. reports he is having a hard time passing BM. will let Provider know.
--- NOTE | 2022-07-28 08:41 | MHC.CARE ---
Assessment sent to [facility].
--- NOTE | 2022-07-28 08:59 | MHC.CARE ---
Spoke with [facility], they received pt's paperwork,. They report that he is too acute for their unit at this time.
--- NOTE | 2022-07-28 09:25 | MHC.RECOVRN ---
Pts referral sent to [facility] for EATS placement.
[2022-07-28 10:30] VITALS: BP 127/80; PULSE 65; RESP 16; TEMP 36.8; O2SAT 96
[2022-07-28] MEDS: Lactulose 20 GM/30 ML SOLUTION 30 GM PO ×2 (10:36→20:53)
[2022-07-28] MEDS: Sennosides 8.6 MG TABLET 17.2 MG PO (10:36)
[2022-07-28] MEDS: Multivitamin TABLET 1 TAB PO (10:36)
[2022-07-28] MEDS: FLUoxetine HCl 20 MG CAPSULE PO (10:36)
[2022-07-28] MEDS: LORazepam 1 MG TABLET PO (10:36)
[2022-07-28] MEDS: Montelukast Sodium 10 MG TABLET PO ×2 (10:36→20:52)
[2022-07-28] MEDS: polyethylene glycoL 3350 17 GM POWD.PACK 34 GM PO (10:36)
--- NOTE | 2022-07-28 10:44 | MHC.RECOVRN ---
Received notification from [facility] that pt is too acute for [facility] at this time. CARE Team aware.
[2022-07-28 11:49] VITALS: BP 131/88; PULSE 62; RESP 16; O2SAT 96
--- NOTE | 2022-07-28 16:00 | PC.NURSE ---
Addendum entered by Stephany Degroot 07/28/22 16:21: Pt requesting to give daughter debit card to take home. Card taken out of belongings and provided to family. Original Note: Pt moved to pod. 2nd set of belongings inventoried secured with rest of belongings.
[2022-07-28 17:02] VITALS: BMI 37.1
[2022-07-28 23:15] VITALS: BP 130/72; PULSE 56; RESP 16; TEMP 36.8; O2SAT 96
[2022-07-29] MEDS: Ondansetron ODT 4 MG TAB.RAPDIS TRANSLINGU (04:45)
--- NOTE | 2022-07-29 07:14 | PC.NURSE ---
Patient slept through the night, no distress observed/reported, disposition per care team is section 12 inpatient bed search, behavior appropriate, medication compliant, VSS, will continue to monitor.
[2022-07-29] MEDS: Nicotine Polacrilex 2 MG GUM BUCCAL (08:00)
[2022-07-29 08:33] VITALS: RESP 16
[2022-07-29] MEDS: FLUoxetine HCl 20 MG CAPSULE PO (09:01)
[2022-07-29] MEDS: Multivitamin TABLET 1 TAB PO (09:02)
[2022-07-29] MEDS: hydrOXYzine HCL 50 MG TABLET PO (10:21)
[2022-07-29 10:26] LABS: COVID-19 Test Negative (Negative); IDNOW Serial# 16C4AD1C
--- NOTE | 2022-07-29 11:35 | PC.NURSE ---
Report given to ems. Belongings given.
== END 2022-07-29 11:47 | disposition other institution (70) ==
PROVIDERS: Physician Assistant; Emergency Provider Internal Medicine
DX: F32.9 Major depressive disorder, single episode, unspecified (principal); R45.851 Suicidal ideations; Z20.822 Contact with and (suspected) exposure to COVID-19; F43.10 Post-traumatic stress disorder, unspecified; F19.10 Other psychoactive substance abuse, uncomplicated; F41.9 Anxiety disorder, unspecified; F14.10 Cocaine abuse, uncomplicated; F17.210 Nicotine dependence, cigarettes, uncomplicated; Z91.51 Personal history of suicidal behavior; Z79.899 Other long term (current) drug therapy
CPT/HCPCS: 36415; 80053; 80143; 80179; 80307; 81001; 82077; 82248; 85025; 87635; 93005; 99285

== ENCOUNTER → 2022-10-09 22:22 | Outpatient (REF) | payer MEDICAID, SELFPAY | LOC: HO.SL 22:22 | PROVIDERS: PCP Nurse Practitioner Primary Care; Visit Provider Nurse Practitioner Primary Care | DX: G47.33 Obstructive sleep apnea (adult) (pediatric) (principal) | CPT/HCPCS: 95810 ==

== ENCOUNTER → 2022-10-19 10:11 | Outpatient (BNVA) | payer MEDICAID, SELFPAY | PROVIDERS: PCP Nurse Practitioner Primary Care; Visit Provider Hospitalist | DX: J45.40 Moderate persistent asthma, uncomplicated (principal); J82.83 Eosinophilic asthma; J30.9 Allergic rhinitis, unspecified; R06.02 Shortness of breath | CPT/HCPCS: 99202 ==

== ENCOUNTER → 2022-10-27 11:17 | Outpatient (BNVA) | payer MEDICAID, SELFPAY | PROVIDERS: PCP Nurse Practitioner Primary Care; Referring Provider Nurse Practitioner Primary Care; Visit Provider Internal Medicine | DX: I49.8 Other specified cardiac arrhythmias (principal) | CPT/HCPCS: 99202 ==

== ENCOUNTER 2022-10-31 10:40 | Outpatient (REF) | payer MEDICAID, SELFPAY ==
--- NOTE | 2022-10-31 07:51 | PFT_ITS ---
INDICATION: Dyspnea. SPIROMETRY: FEV1 to FVC 67% with an FEV1 of 3.48 L, which is 92% predicted and FVC of 5.17 L, which is 108% predicted. No significant response to bronchodilators noted. Maximum voluntary ventilation 80% predicted. LUNGS VOLUMES: Total lung capacity 116% predicted with residual volume 146% predicted. DIFFUSION CAPACITY: DLCO 82% predicted. COMPARISONS: PFTs in 2018. INTERPRETATION: There is an obstructive ventilatory defect consistent with mild COPD. No significant response to bronchodilators noted. Low-normal maximum voluntary ventilation, which could be secondary to the worsening dynamic inspiratory capacity. Lung volumes with a trend of hyperinflation and significant airtrapping due to the COPD and diffusion capacity is low normal. When compared to 2018, there is a significant decrease in the FVC, a significant increase in the FEV1, a significant increase in the total lung capacity and residual volume. No significant change in the diffusion capacity. Clinical correlation warranted. MD MIYA Felton/EVELYN / [phone]
[2022-10-31 12:22] LABS: MANUAL DIFF FLAG NO
[2022-10-31 12:44] LABS: Basophils Absolute Auto 0.1 X10*3/uL (0.0-0.2); Basophils Percent Auto 0.6 % (0-2); Eosinophils Absolute Auto 0.7 X10*3/uL (0.0-0.4); Eosinophils Percent Auto 4.9 % (0-4); Hematocrit 50.5 % (42.0-52.0); Hemoglobin 16.5 g/dl (14.0-18.0); Imm Gran Abs Auto 0.06 X10*3/uL (0.00-0.03); Imm Gran Pct Auto 0.4 % (0.0-0.4); Lymphocytes Absolute Auto 3.4 X10*3/uL (1.2-4.9); Lymphocytes Percent Auto 24.3 % (20-40); Mean Corpuscular HGB Conc 32.7 g/dl (31.0-36.0); Mean Corpuscular Hemoglobin 29.9 pg (27.0-33.0); Mean Corpuscular Volume 91.5 fL (80.0-98.0); Monocytes Absolute Auto 1.1 X10*3/uL (0.1-1.2); Neutrophils Absolute Auto 8.6 x10*3/uL (2.0-8.3); Neutrophils Percent Auto 61.8 % (45-73); Platelet Count 240 X10*3/uL (160-400); Red Blood Count 5.52 X10*6/uL (4.60-5.80)
[2022-10-31 13:17] LABS: Anion Gap 14 (12-20); Blood Urea Nitrogen 12 mg/dL (9-16); Carbon Dioxide 21 mmol/L (22-29); Chloride 109 mmol/L (96-108); Estimated Glomerular Filt Rate > 60; Glucose Random 78 mg/dL (60-115); Potassium 4.2 mmol/L (3.3-5.1); Sodium 140 mmol/L (135-145)
[2022-10-31 13:19] LABS: Anion Gap 13 (12-20); Blood Urea Nitrogen 12 mg/dL (9-16); Calcium 9.1 mg/dL (8.4-10.2); Carbon Dioxide 23 mmol/L (22-29); Chloride 108 mmol/L (96-108); Estimated Glomerular Filt Rate > 60; Glucose Random 79 mg/dL (60-115); Potassium 4.3 mmol/L (3.3-5.1); Sodium 140 mmol/L (135-145)
[2022-10-31 13:41] LABS: Erythrocyte Sedimentation Rate 2 MM/HR (0-15)
[2022-11-02 19:09] LABS: IgA 455 mg/dL (47-310); IgG 1290 mg/dL (600-1640); IgM 156 mg/dL (50-300)
== END 2022-10-31 10:41 | disposition home or self-care (01) ==
LOC: HO.RESP 10:40
PROVIDERS: Internal Medicine; PCP Nurse Practitioner Primary Care; Visit Provider Hospitalist
DX: J45.909 Unspecified asthma, uncomplicated (principal); I49.8 Other specified cardiac arrhythmias
CPT/HCPCS: 36415; 80048; 82784; 82785; 85025; 85652; 86003; 94060; 94727; 94729

== ENCOUNTER → 2022-11-09 12:55 | Outpatient (REF) | payer MEDICAID, SELFPAY ==
--- NOTE | 2022-11-09 12:59 | HM_ITS ---
* Procedure time 30 days. Wear time 8 days. * Underlying rhythm is sinus. * Average ventricular rate 63/min. Range 50-159/Min. * Sinus tachycardia noted but no other significant arrhythmias. * Very rare supraventricular ectopy. * No symptoms specified by patient. MTDD
== END ==
LOC: HO.CARD 12:55
PROVIDERS: Visit Provider Internal Medicine
DX: I49.8 Other specified cardiac arrhythmias (principal)
CPT/HCPCS: 93270

== ENCOUNTER → 2022-12-30 10:08 | Outpatient (BNVA) | payer MEDICAID, SELFPAY | PROVIDERS: PCP Nurse Practitioner Primary Care; Visit Provider Hospitalist | DX: J45.40 Moderate persistent asthma, uncomplicated (principal); J30.9 Allergic rhinitis, unspecified; R06.00 Dyspnea, unspecified | CPT/HCPCS: 99212 ==

== ENCOUNTER → 2023-01-19 10:33 | Outpatient (REF) | payer MEDICAID, SELFPAY ==
--- NOTE | 2023-01-19 10:52 | CA_ITS ---
Transthoracic Echocardiogram Patient (Last, First, Middle): Venancio Carlos M Gender: Male Date of : 1975 Age: 47 Procedure Date: 01/19/2023 Procedure Type: Transthoracic Echocardiogram Location: OP Height: 172.72 cm Weight: 117.94 kg BSA: 2.29 m2 Heart Rate: bpm BP: 120 / 70 mmHg It Engineer: YOLA Referring MD: Vijay Gil MD Symptoms: I49.8 - Other specified cardiac arrhythmias Study Quality: Adequate ECG Rhythm: Sinus Conclusions: - The left ventricular systolic function is normal. The calculated ejection fraction is 59% by biplane method. - No obvious valvular pathology seen on this study. Findings Left Ventricle Normal left ventricular cavity size. The left ventricular systolic function is normal. The calculated ejection fraction is 59% by biplane method. There is no evidence of regional wall motion abnormalities. Diastolic function is normal for age. There is mild septal asymmetric hypertrophy. LV peak GLS 17.5%. Right Ventricle Mildly increased right ventricular cavity size. There is normal right ventricular systolic function. Atria Both atria are normal in size. Aortic Valve There is a normal trileaflet aortic valve. There is no aortic valve stenosis. There is no aortic valve regurgitation. Mitral Valve The mitral valve appears normal. There is no mitral valve regurgitation. There is no mitral valve stenosis. Pulmonic Valve The pulmonic valve is likely normal. Tricuspid Valve There is trace tricuspid valve regurgitation. There is no evidence of pulmonary hypertension. Great Vessels The asc aorta and aortic arch are normal in size. Venous The inferior vena cava was not well visualized. Pericardium/Pleural There is no evidence of pericardial effusion. Prior Study Comparison No significant change compared to prior study dated: 11/11/2019. Recommendations, Care & Conclusions No obvious valvular pathology seen on this study. Measurements 2D Linear Measurements IVSd: 1.14 0.6-0.9/0.6-1.0 cm LVIDd: 4.91 3.9-5.3/4.2-5.9 cm LVIDd Index: 2.14 2.4-3.2/2.2-3.1 cm/m2 LVIDs: 3.17 2.0-3.6 cm LVPWd: 1.00 0.7-1.1 cm LA Diam: 3.40 2.7-3.8/3.0-4.0 cm LAIDs Index: 1.48 1.5-2.3 cm/m2 LV Mass: 241.31 67-162/88-224 g LV Mass Index: 105.38 43-95/49-115 g/m2 LVOT Diam: 2.30 3.0+(-)1.3 cm 2D Systolic Function EF 4C: 57.20 >55% EF 2C: 59.50 >55% EF BiP: 59.00 >55% Mitral Valve MV Pk E: 0.60 MV PK A: 0.45 MV Decel Time: 250.00 E/A: 1.30 E'Lateral: 11.40 E'Medial: 7.40 E/E' Med: 8.10 E/E' Lat: 5.30 PHT: 73.00 MVA PHT: 3.01 Decel [place]: 2.40 Aortic Valve AoV Pk Celio: 1.30 AoV Mn Celio: 0.93 AoV VTI: 0.31 AoV Pk Grad: 7.00 Aov Mn Grad: 4.00 ASIYA Cont.VTI: 2.90 LVOT LVOT Pk Celio: 1.00 LVOT Mn Celio: 0.67 LVOT VTI: 0.22 LVOT Pk Grad: 4.00 LVOT Mn Grad: 2.00 LVOT Diam: 2.30 LVOT Area: 4.15 Diastolic Function MV Pk E: 0.60 MV Pk A: 0.45 E/A: 1.30 E'Medial: 7.40 E/E' Med: 8.10 E' Laterial: 11.40 E/E' Lat: 5.30 Right Ventricle TAPSE (mm): 23.50 TVS' Celio: 10.20 Great Vessels Aorta Sinus of Valsalva: 3.10 2.0-3.[address] [place]: 2.22 1.7-3.4 cm Ao Asc: 2.70 2.1-3.4 cm Ao Arch: 2.50 Updated in Other Vendor System with Status of Final Vijay Gil MD electronically signed on 01/21/2023 12:47:21 PM with status of Final
== END ==
LOC: HO.CARD 10:33
PROVIDERS: PCP Nurse Practitioner Primary Care; Visit Provider Internal Medicine
DX: I49.8 Other specified cardiac arrhythmias (principal)
CPT/HCPCS: 93306; 93356

== ENCOUNTER 2023-01-30 11:48 | Outpatient (REF) | payer MEDICAID, SELFPAY | END 2023-01-30 11:49 | disposition home or self-care (01) | LOC: HO.MDS 11:48 | PROVIDERS: Visit Provider Hospitalist | DX: J45.50 Severe persistent asthma, uncomplicated (principal) | CPT/HCPCS: 96372; J0517 ==

== ENCOUNTER 2023-03-07 10:37 | Outpatient (REF) | payer MEDICAID, SELFPAY | END 2023-03-07 10:38 | disposition home or self-care (01) | LOC: HO.MDS 10:37 | PROVIDERS: Visit Provider Hospitalist | DX: J45.50 Severe persistent asthma, uncomplicated (principal) | CPT/HCPCS: 96372; J0517 ==

== ENCOUNTER 2023-05-27 15:54 | Emergency (ER) | payer MEDICAID, OTHER, SELFPAY ==
[2023-05-27 15:57] VITALS: BP 139/87; PULSE 70; RESP 19; TEMP 36.6; O2SAT 97; BMI 39.7
--- NOTE | 2023-05-27 15:58 | ECG_ITS ---
Test Reason : CHEST PAIN Blood Pressure : / mmHG Vent. Rate : 068 BPM Atrial Rate : 068 BPM P-R Int : 172 ms QRS Dur : 092 ms QT Int : 414 ms P-R-T Axes : -21 017 050 degrees QTc Int : 440 ms Normal sinus rhythm Brugada pattern, type 1 Abnormal ECG When compared with ECG of 27-JUL-2022 12:59, No significant change was found Referred By: Oscar Cleveland Electronically Signed By:JERRY GO
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
[2023-05-27 16:19] LABS: MANUAL DIFF FLAG NO
[2023-05-27 16:20] LABS: Basophils Percent Auto 0.2 % (0-2); Hematocrit 42.4 % (42.0-52.0); Hemoglobin 14.1 g/dl (14.0-18.0); Imm Gran Abs Auto 0.05 X10*3/uL (0.00-0.03); Imm Gran Pct Auto 0.3 % (0.0-0.4); Lymphocytes Absolute Auto 2.3 X10*3/uL (1.2-4.9); Lymphocytes Percent Auto 15.6 % (20-40); Mean Corpuscular HGB Conc 33.3 g/dl (31.0-36.0); Mean Corpuscular Hemoglobin 28.7 pg (27.0-33.0); Mean Corpuscular Volume 86.2 fL (80.0-98.0); Mean Platelet Volume 9.1 fL (9.4-12.4); Monocytes Absolute Auto 1.4 X10*3/uL (0.1-1.2); Monocytes Percent Auto 9.7 % (2-11); Neutrophils Absolute Auto 10.8 x10*3/uL (2.0-8.3); Neutrophils Percent Auto 74.2 % (45-73); Platelet Count 278 X10*3/uL (160-400); Red Blood Count 4.92 X10*6/uL (4.60-5.80); Red Cell Distribution Width 14.6 % (11.0-16.0); White Blood Count 14.5 X10*3/uL (4.8-10.8)
[2023-05-27 16:26] LABS: Prothrombin Time 12.6 SEC (11.1-13.3)
[2023-05-27 16:35] VITALS: RESP 18
--- NOTE | 2023-05-27 16:37 | PC.NURSE ---
Venancio self presented to the emergency dept after relapsing on cocaine and alcohol yesterday after a year of sobriety. Venancio reports he was feeling not safe but denies current SI stating I'm just really tired . Venancio was agreeable to being changed over and was given crackers and leobardo js. Currently waiting on Venancio to produce a urine sample and then see the care team. Venancio reports he has not been on any medications for months .
[2023-05-27 16:43] LABS: Acetaminophen LAB < 17 mcg/mL (<30); Alanine Aminotransferase 14 U/L (0-40); Albumin Level 4.1 g/dL (3.5-5.0); Alkaline Phosphatase 52 U/L (39-117); Anion Gap 16 (12-20); Aspartate Amino Transferase 27 U/L (5-37); Bilirubin Total 1.2 mg/dL (0.0-1.0); Blood Urea Nitrogen 13 mg/dL (9-16); Calcium 9.2 mg/dL (8.4-10.2); Carbon Dioxide 24 mmol/L (22-29); Chloride 103 mmol/L (96-108); Creatinine Clr Calc Pharmacy 108.7; Estimated Glomerular Filt Rate > 60; Ethanol < 10 mg/dL; Glucose Random 98 mg/dL (60-115); Lipase 14 U/L (8-78); Potassium 3.6 mmol/L (3.3-5.1); Salicylate < 5.0 mg/dL (15-30); Sodium 139 mmol/L (135-145); Total Protein 7.3 g/dL (6.5-8.0)
[2023-05-27 16:44] LABS: Troponin-I High Sensitivity < 2.7 ng/L (<3.5-35.0)
--- NOTE | 2023-05-27 18:27 | MHC.CARE ---
CARE Team is awaiting a UTOX in order to see this pt. The RN woke pt and pt went into the restroom but could not produce urine. CARE Team will wait for UTOX to be completed prior to assessing the pt
[2023-05-27 18:48] LABS: Appearance Urine Clear; Color Urine Dark Yellow; Glucose Urine UA Negative (Negative); Leukocyte Esterase Urine Small (1+) (Negative); Nitrite Urine Negative (Negative); UMIC TRIGGER UACC YES; Urine Blood Negative (Negative); Urine Ketones Trace mg/dL (Negative); Urine Protein Negative (Neg-Trace)
[2023-05-27 18:55] LABS: Amphetamine Screen Urine Not Detected (Not Detect); Barbiturates, Urine Not Detected (Not Detect); Benzodiazepines Screen Urine Not Detected (Not Detect); Cannabinoid Screen Urine Not Detected (Not Detect); Cocaine Screen Urine POSITIVE (Not Detect); Fentanyl, urine Not Detected (Not Detect); Opiate Screen Urine Not Detected (Not Detect); Phencyclidine Screen Urine Not Detected (Not Detect)
[2023-05-27 19:00] LABS: Bacteria Urine None Seen (None Seen); Hyaline Casts Urine 0-2 /LPF (0-2); RBC Urine 0-2 /HPF (0-2); Squamous Epithelial Cell Urine 0-2 /HPF (0-2); UACC Culture Trigger YES; WBC Urine 0-5 /HPF (0-5)
[2023-05-27 22:43] VITALS: BP 109/67; PULSE 66; RESP 16; TEMP 37.1; O2SAT 96
--- NOTE | 2023-05-28 06:42 | PC.NURSE ---
Patient slept through the night, no distress observed/reported, behavior non concerning, med rec completed/currently not on any home medication, disposition per care team is current provider/discharge paper ready, VSS, labs completed/resulted, will continue to monitor.
--- NOTE | 2023-05-28 12:16 | PC.NURSE ---
Venancio ate breakfast this morning and asked to lay down and rest a bit as he was still tired. Denies SI/HI/AVH. Venancio reports he is safe and ready to discharge. Belongings returned.
== END 2023-05-28 12:17 | disposition home or self-care (01) ==
PROVIDERS: Physician Assistant; Emergency Provider Emergency Medicine; PCP Nurse Practitioner Primary Care
DX: F14.10 Cocaine abuse, uncomplicated (principal); R45.851 Suicidal ideations; F43.10 Post-traumatic stress disorder, unspecified; F41.9 Anxiety disorder, unspecified; F19.10 Other psychoactive substance abuse, uncomplicated; F17.210 Nicotine dependence, cigarettes, uncomplicated; F32.9 Major depressive disorder, single episode, unspecified
CPT/HCPCS: 36415; 80053; 80143; 80179; 80307; 81001; 83690; 84484; 85025; 85610; 87086; 93005; 99284; S9485

== ENCOUNTER 2023-07-27 10:38 | Emergency (ER) | payer MEDICAID, OTHER, SELFPAY ==
--- NOTE | 2023-07-27 | ECG_ITS ---
Test Reason : COCAINE USE Blood Pressure : / mmHG Vent. Rate : 064 BPM Atrial Rate : 064 BPM P-R Int : 212 ms QRS Dur : 098 ms QT Int : 424 ms P-R-T Axes : 023 083 072 degrees QTc Int : 437 ms Sinus rhythm with 1st degree A-V block Brugada pattern, type 1 When compared with ECG of 27-MAY-2023 16:05, NC interval has increased Referred By: Tati Velasco Electronically Signed By:MANSI HUITRON MD
[2023-07-27 11:00] VITALS: BP 129/74; PULSE 81; RESP 18; TEMP 37.1; O2SAT 97; BMI 38.0
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
[2023-07-27 11:37] LABS: Appearance Urine Clear; Color Urine Yellow; Glucose Urine UA Negative (Negative); Leukocyte Esterase Urine Trace (Negative); Nitrite Urine Negative (Negative); PH 6.5 (5.0-9.0); Specific Gravity - Urine 1.025 (1.005-1.025); UMIC TRIGGER UA YES; Urine Blood Negative (Negative); Urine Ketones Negative (Negative); Urine Protein Trace mg/dL (Neg-Trace)
[2023-07-27 11:41] LABS: Bacteria Urine None Seen (None Seen); Hyaline Casts Urine 0-2 /LPF (0-2); RBC Urine 0-2 /HPF (0-2); Squamous Epithelial Cell Urine 0-2 /HPF (0-2); WBC Urine 0-5 /HPF (0-5)
[2023-07-27 11:44] LABS: Basophils Absolute Auto 0.1 X10*3/uL (0.0-0.2); Basophils Percent Auto 0.6 % (0-2); Eosinophils Absolute Auto 0.3 X10*3/uL (0.0-0.4); Eosinophils Percent Auto 1.9 % (0-4); Hematocrit 45.1 % (42.0-52.0); Imm Gran Abs Auto 0.05 X10*3/uL (0.00-0.03); Imm Gran Pct Auto 0.3 % (0.0-0.4); Lymphocytes Absolute Auto 2.5 X10*3/uL (1.2-4.9); Lymphocytes Percent Auto 16.6 % (20-40); Mean Corpuscular HGB Conc 33.3 g/dl (31.0-36.0); Mean Corpuscular Hemoglobin 29.5 pg (27.0-33.0); Mean Corpuscular Volume 88.6 fL (80.0-98.0); Mean Platelet Volume 9.4 fL (9.4-12.4); Monocytes Absolute Auto 1.5 X10*3/uL (0.1-1.2); Neutrophils Absolute Auto 10.4 x10*3/uL (2.0-8.3); Neutrophils Percent Auto 70.4 % (45-73); Platelet Count 250 X10*3/uL (160-400); Red Blood Count 5.09 X10*6/uL (4.60-5.80); Red Cell Distribution Width 14.4 % (11.0-16.0); SCAN SMEAR FLAG 1; White Blood Count 14.8 X10*3/uL (4.8-10.8)
[2023-07-27 11:54] LABS: Amphetamine Screen Urine POSITIVE (Not Detect); Barbiturates, Urine Not Detected (Not Detect); Benzodiazepines Screen Urine Not Detected (Not Detect); Cannabinoid Screen Urine Not Detected (Not Detect); Cocaine Screen Urine POSITIVE (Not Detect); Fentanyl, urine Not Detected (Not Detect); Opiate Screen Urine Not Detected (Not Detect); Phencyclidine Screen Urine Not Detected (Not Detect)
[2023-07-27 12:00] LABS: Monocytes Percent Auto 10.2 % (2-11)
[2023-07-27 12:01] LABS: Acetaminophen LAB < 3 mcg/mL (<30); MANUAL DIFF FLAG NO; Salicylate < 5.0 mg/dL (15-30)
[2023-07-27 12:02] LABS: Alanine Aminotransferase 13 U/L (0-40); Alkaline Phosphatase 56 U/L (39-117); Anion Gap 11 (12-20); Aspartate Amino Transferase 20 U/L (5-37); Bilirubin Total 0.5 mg/dL (0.0-1.0); Blood Urea Nitrogen 13 mg/dL (9-16); Calcium 8.8 mg/dL (8.4-10.2); Carbon Dioxide 26 mmol/L (22-29); Chloride 104 mmol/L (96-108); Creatinine Clr Calc Pharmacy 105.2; Estimated Glomerular Filt Rate > 60; Ethanol 11 mg/dL; Glucose Random 109 mg/dL (60-115); Potassium 3.3 mmol/L (3.3-5.1); Sodium 138 mmol/L (135-145)
--- NOTE | 2023-07-27 12:14 | PC.NURSE ---
belongings in locker 6
--- NOTE | 2023-07-27 13:46 | PC.NURSE ---
CARE Team at bedside to evaluate pt
--- NOTE | 2023-07-27 15:59 | MHC.CARE ---
Referral faxed to [facility] for [facility]
--- NOTE | 2023-07-27 17:38 | MHC.CARE ---
Spoke to Nathaly- nursing coordinator from [facility]. She asked if pt would be able to return to [facility] after [facility] admission. Pt states he is unsure. Nathaly reports we will have to follow up with [facility] tomorrow and also give them a call to follow up on referral as they are reviewing case now and will likely not admit tonight anyway. CARE team to follow and will conduct an MSU tomorrow.
[2023-07-27 21:45] LABS: COVID-19 Test Negative (Negative); IDNOW Serial# 08D9AD1C
--- NOTE | 2023-07-28 09:01 | MHC.CARE ---
reached out to [facility] in [place] [phone] to inquire if patient was able to return to the program if he is admitted to a [facility] loc. awaiting call back.
--- NOTE | 2023-07-28 12:30 | PC.NURSE ---
patient is a+O and able to make needs known. Patient is able to ambulate independently around unit. Denies SI/HI. Advocating for discharge. Patient discharged from facility with meds.
== END 2023-07-28 12:31 | disposition home or self-care (01) ==
PROVIDERS: Physician Assistant Medical; Emergency Provider Emergency Medicine Emergency Medical Services; PCP Nurse Practitioner Primary Care
DX: F32.9 Major depressive disorder, single episode, unspecified (principal); R45.851 Suicidal ideations; F14.10 Cocaine abuse, uncomplicated; I44.0 Atrioventricular block, first degree; F17.210 Nicotine dependence, cigarettes, uncomplicated; Z71.6 Tobacco abuse counseling; Z11.52 Encounter for screening for COVID-19; Z20.822 Contact with and (suspected) exposure to COVID-19; Z79.899 Other long term (current) drug therapy
CPT/HCPCS: 36415; 80053; 80143; 80179; 80307; 81001; 85025; 87635; 93005; 99285; S9485

== ENCOUNTER → 2023-07-27 14:21 | Outpatient (BNV) | payer MEDICAID, SELFPAY | PROVIDERS: Emergency Provider Emergency Medicine Emergency Medical Services; PCP Nurse Practitioner Primary Care; Visit Provider Internal Medicine Cardiovascular Disease | DX: I44.0 Atrioventricular block, first degree (principal) | CPT/HCPCS: 93010 ==

== ENCOUNTER 2023-08-26 02:04 | Inpatient (IN) | payer MEDICAID, OTHER, SELFPAY ==
[2023-08-26 02:08] VITALS: BP 147/96; PULSE 63; RESP 18; TEMP 36.8; O2SAT 97; BMI 38.0
--- NOTE | 2023-08-26 02:22 | MHC.EDTECH ---
Patient brought into triage,labs,urine,and covid were obtained and sent to lab, Security walked patient to the pod.
[2023-08-26 02:27] LABS: MANUAL DIFF FLAG NO
[2023-08-26 02:29] LABS: Basophils Absolute Auto 0.1 X10*3/uL (0.0-0.2); Basophils Percent Auto 0.6 % (0-2); Eosinophils Absolute Auto 0.8 X10*3/uL (0.0-0.4); Eosinophils Percent Auto 6.1 % (0-4); Hematocrit 47.4 % (42.0-52.0); Hemoglobin 15.9 g/dl (14.0-18.0); Imm Gran Abs Auto 0.04 X10*3/uL (0.00-0.03); Imm Gran Pct Auto 0.3 % (0.0-0.4); Lymphocytes Absolute Auto 3.4 X10*3/uL (1.2-4.9); Lymphocytes Percent Auto 27.5 % (20-40); Mean Corpuscular HGB Conc 33.5 g/dl (31.0-36.0); Mean Corpuscular Hemoglobin 29.2 pg (27.0-33.0); Mean Platelet Volume 9.1 fL (9.4-12.4); Monocytes Absolute Auto 1.4 X10*3/uL (0.1-1.2); Neutrophils Absolute Auto 6.8 x10*3/uL (2.0-8.3); Neutrophils Percent Auto 54.5 % (45-73); Platelet Count 307 X10*3/uL (160-400); Red Blood Count 5.45 X10*6/uL (4.60-5.80); Red Cell Distribution Width 14.5 % (11.0-16.0); White Blood Count 12.5 X10*3/uL (4.8-10.8)
[2023-08-26 02:30] LABS: Appearance Urine Clear; Color Urine Yellow; Glucose Urine UA Negative (Negative); Leukocyte Esterase Urine Trace (Negative); Nitrite Urine Negative (Negative); PH 7.5 (5.0-9.0); UMIC TRIGGER UA YES; Urine Blood Negative (Negative); Urine Ketones Negative (Negative); Urine Protein Negative (Neg-Trace)
[2023-08-26 02:35] LABS: Bacteria Urine None Seen (None Seen); Hyaline Casts Urine 0-2 /LPF (0-2); RBC Urine 0-2 /HPF (0-2); Squamous Epithelial Cell Urine 0-2 /HPF (0-2); WBC Urine 0-5 /HPF (0-5)
[2023-08-26 02:38] LABS: Amphetamine Screen Urine Not Detected (Not Detect); Barbiturates, Urine Not Detected (Not Detect); Benzodiazepines Screen Urine Not Detected (Not Detect); Cannabinoid Screen Urine Not Detected (Not Detect); Cocaine Screen Urine Not Detected (Not Detect); Fentanyl, urine Not Detected (Not Detect); Opiate Screen Urine Not Detected (Not Detect); Phencyclidine Screen Urine Not Detected (Not Detect)
[2023-08-26 02:45] LABS: COVID-19 Test Negative (Negative); IDNOW Serial# BCCEAD1C
[2023-08-26 02:49] LABS: Alanine Aminotransferase 19 U/L (0-40); Albumin Level 4.2 g/dL (3.5-5.0); Alkaline Phosphatase 72 U/L (39-117); Anion Gap 13 (12-20); Aspartate Amino Transferase 20 U/L (5-37); Bilirubin Total 0.2 mg/dL (0.0-1.0); Blood Urea Nitrogen 17 mg/dL (9-16); Calcium 9.3 mg/dL (8.4-10.2); Carbon Dioxide 23 mmol/L (22-29); Chloride 106 mmol/L (96-108); Creatinine Clr Calc Pharmacy 94.5; Estimated Glomerular Filt Rate > 60; Ethanol < 10 mg/dL; Glucose Random 116 mg/dL (60-115); Sodium 138 mmol/L (135-145); Total Protein 7.7 g/dL (6.5-8.0)
[2023-08-26] MEDS: hydrOXYzine HCL 50 MG TABLET PO (04:05)
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
--- NOTE | 2023-08-26 07:28 | PC.NURSE ---
med rec completed with patient
[2023-08-26 07:31] VITALS: BP 136/83; PULSE 68; RESP 18; TEMP 36.2; O2SAT 97
[2023-08-26] MEDS: Ibuprofen 800 MG TABLET PO ×2 (07:54→17:52)
--- NOTE | 2023-08-26 07:56 | PC.NURSE ---
Alert and oriented, medicated for complaints of headache. Ate well for breakfast, ambulating on unit with steady gait, calm and cooperative
--- NOTE | 2023-08-26 09:47 | PHA.MEDREC ---
Pharmacy Consult ? Medication Reconciliation Pharmacy has REVIEWED the medication reconciliation.
[2023-08-26] MEDS: cloNIDine HCL 0.1 MG TABLET PO ×2 (11:04→21:07)
[2023-08-26] MEDS: Acetaminophen 325 MG TABLET 650 MG PO (11:04)
--- NOTE | 2023-08-26 11:04 | PC.NURSE ---
Assumed care of pt @ 11am. Reporting h/a 04/06 that was unresolved with Ibuprofen. Acetminophen given, effect pending. Otherwise in no apparent distress, resp even and unlabored. Plan of care ongoing.
[2023-08-26] MEDS: Topiramate 25 MG TABLET PO ×2 (11:08→21:07)
[2023-08-26 14:00] VITALS: RESP 14
[2023-08-26] MEDS: LORazepam 1 MG TABLET PO ×2 (14:31→21:07)
--- NOTE | 2023-08-26 14:38 | PC.NURSE ---
PT continues to c/o of persistent headache 04/06 despite meds given (see MAR). Cary Tolbert aware. New order for Lorazepam 1mg ordered and given, effect pending. PT currently laying in bed, in no apparent distress, resp even and unlabored.
--- NOTE | 2023-08-26 17:57 | PC.NURSE ---
PT reports some relief from Ativan, h/a now 01/04, request Ibuprofen PRN. Given, effect pending.
[2023-08-26 19:30] VITALS: BP 104/71; PULSE 80; RESP 14; TEMP 37.1; O2SAT 96
[2023-08-26] MEDS: Mirtazapine 30 MG TABLET PO (21:07)
--- NOTE | 2023-08-26 21:12 | PC.NURSE ---
PT reports continued anxiety and headache. One time order of Ativan 1mg obtained and given, effect pending. PT in bed, in no apparent distress, resp even and unlabored.
--- NOTE | 2023-08-26 23:42 | PC.NURSE ---
Assumed care of pt. Pt lying on stretcher, eyes closed, respirations even and unlabored, no acute distress at this time. Continuing plan of care with safety measures per protocol.
--- NOTE | 2023-08-27 04:29 | PC.NURSE ---
Pt remains lying on stretcher, eyes closed, respirations even and unlabored, no acute medical or behavioral issues at this time. Continuing plan of care.
[2023-08-27 06:02] VITALS: BP 136/79; PULSE 62; RESP 16; TEMP 37; O2SAT 98
[2023-08-27] MEDS: Topiramate 25 MG TABLET PO ×2 (08:52→20:33)
--- NOTE | 2023-08-27 09:00 | PC.NURSE ---
PT PLEASANT AND COOPERATIVE. PT OUT OF HIS ROOM TALKING WITH ANOTHER PT. HE DENIES SI/HI AT THIS TIME, DENIES PAIN. MEDS GIVEN DOCUMENTED. WILL CONTINUE TO OBSERVE.
--- NOTE | 2023-08-27 11:15 | MHC.CARE ---
RAD Team conducted a statewide dual diagnosis bed search for this pt, however, there are no beds available across the state due to the holiday. RAD will continue the bed search tomorrow if deemed appropriate.
[2023-08-27] MEDS: hydrOXYzine HCL 50 MG TABLET PO (13:49)
[2023-08-27 17:00] VITALS: BP 117/69; PULSE 69; RESP 18; TEMP 37.6; O2SAT 98
--- NOTE | 2023-08-27 17:00 | PC.NURSE ---
PT WAS SEEN BY CARE TEAM EARLIER, PLAN OF CARE REMAINS THE SAME, PT AWARE. PT UP TO USE BATHROOM, NO COMPLAINTS AT THIS TIME.
[2023-08-27] MEDS: cloNIDine HCL 0.1 MG TABLET PO (17:40)
--- NOTE | 2023-08-27 18:38 | PC.NURSE ---
PT REPORTED FEELINGS OF ANXIETY. PRN CLONIDINE GIVEN DOCUMENTED. EFFECTIVENESS PENDING.
[2023-08-27] MEDS: Mirtazapine 30 MG TABLET PO (20:33)
[2023-08-28 06:49] VITALS: BP 131/79; PULSE 67; RESP 18; TEMP 36.7; O2SAT 99
[2023-08-28] MEDS: Topiramate 25 MG TABLET PO ×2 (09:20→21:27)
[2023-08-28] MEDS: cloNIDine HCL 0.1 MG TABLET PO (09:20)
[2023-08-28] MEDS: hydrOXYzine HCL 50 MG TABLET PO (12:32)
--- NOTE | 2023-08-28 15:10 | PC.NURSE ---
Patient able to ambulate in unit independently, asking for supplies for taking a shower which were provided for him. Patient showering at this time.
[2023-08-28 16:12] VITALS: BP 118/75; PULSE 66; RESP 20; TEMP 37; O2SAT 98
--- NOTE | 2023-08-28 19:25 | PC.NURSE ---
patient appears to remain at rest at present respirations are even and unlabored patient appears in no distress.
[2023-08-28] MEDS: Mirtazapine 30 MG TABLET PO (21:27)
[2023-08-28 22:08] VITALS: BP 103/58; PULSE 73; RESP 16; TEMP 36.8; O2SAT 98
--- NOTE | 2023-08-29 07:57 | PC.NURSE ---
Resumed care of patient, he is currently resting, q15 minute checks maintained, all needs met at this time.
[2023-08-29] MEDS: Topiramate 25 MG TABLET PO ×2 (08:53→20:54)
[2023-08-29 08:57] VITALS: BP 117/87; PULSE 76; RESP 16; TEMP 36.4; O2SAT 98
[2023-08-29 09:06] LABS: COVID-19 Test Negative (Negative); IDNOW Serial# 9DB6401D
--- NOTE | 2023-08-29 09:50 | MHC.CARE ---
RAD Team conducted a statewide dual diagnosis bed search for this pt, however, there are no beds available. [facility] had 1M dual bed but unfortunately they cannot consider this pt due to the fact that he did not test positive for any substances when he presented to the ED. Per CARE Team we can consider him straight psych now and present him to the units when a bed becomes available.
[2023-08-29 16:30] VITALS: BP 115/76; PULSE 71; RESP 18; TEMP 37; O2SAT 96
[2023-08-29] MEDS: Lactulose 20 GM/30 ML SOLUTION 30 GM PO (18:05)
[2023-08-29] MEDS: Milk of Magnesia 30 ML ORAL.SUSP PO (18:05)
[2023-08-29] MEDS: polyethylene glycoL 3350 17 GM POWD.PACK PO (18:05)
[2023-08-29 20:00] VITALS: BP 136/78; PULSE 88; RESP 16; TEMP 36.7; O2SAT 97
[2023-08-29] MEDS: Mirtazapine 30 MG TABLET PO (20:54)
[2023-08-29] MEDS: hydrOXYzine HCL 25 MG TABLET PO (20:54)
[2023-08-29] MEDS: cloNIDine HCL 0.1 MG TABLET PO (20:54)
[2023-08-29 21:34] VITALS: BMI 38.0
--- NOTE | 2023-08-29 21:36 | PC.NURSE ---
Addendum entered by Tami Yo RN 08/29/23 21:37: Venancio was admitted to M3 at 1950 from [facility] on CV for treatment of MDD and PTSD.? Precipitant of admission includes exacerbation of depression precipitated by feeling bullied at sober housing, relapse of abuse of adderall, overdose on prescribed medications 3 weeks ago, loss of sober housing, homelessness, car broke down. Pt presented to ED with suicidality. He reports he is safe on the unit but would act on SI if discharged at this time. He denies ideation, plan or intent to harm others. Venancio is alert, fully oriented, pleasant and cooperative with admission process. Mood is depressed. Affect is subdued. He denies auditory, visual, and other hallucinations at present. There are no overt signs of psychosis. Thought process is organized. Appetite is good with no recent wt loss. Notably pt reports no bm x 1 week. He received MOM, Miralax and lactulose in our ED with no result. Pt reports difficulty falling and staying asleep. Pt reports being sober from all substances for 18 months prior to recent relapse. Medical Issues?include Seizure x1 following OD on prescription meds 3 weeks ago, constipation, intermittent nausea and dizziness, shortness of breath when laying down, sore throat with negative Covid swab. Pt has history of Brugada Syndrome and no ekg done in ED. He has healing scabs on bilateral knees from fall 2 weeks ago during seizure. No s/s infection noted. Pt is high fall risk and was placed on q 15 min Safety Checks Original Note: Venancio was admitted to m3 at 1950 from [facility], [facility], [facility], [facility], etc) on Legal status for treatment of diagnosis.? Precipitant of admission include Behavior/ Issue leading up to ED. Level of consciousness, orientation,? cooperative? Mood is (depressed, euphoric, etc) Affect is ( sad, anxious, irritable, elated, etc) Auditory, visual, tactile, other hallucinations? Appears internally preoccupied? Appears to respond to internal stimuli? Paranoia/ suspiciousness? Delusions (grandeur persecutionother) Thought Process linear? tangential? Circumstantial? Thought blocking? Disorganized? Ideation, plan or intent to harm self or others? Appetite? Recent wt loss or gain? Sleep? Focus? Substance Issues - type? date of last use, complicated withdrawal history (seizures, DTs ect?) Medical Issues? Physical complaint? Safety Checks
[2023-08-30] MEDS: Milk of Magnesia 30 ML ORAL.SUSP PO (06:03)
[2023-08-30] MEDS: Lactulose 20 GM/30 ML SOLUTION 30 GM PO (06:05)
--- NOTE | 2023-08-30 06:06 | PC.NURSE ---
Venancio reports no BM for 4-5 days, given Lactulose and MOM PO prn.
[2023-08-30 08:08] VITALS: BP 111/57; PULSE 70; RESP 20; TEMP 36.5; O2SAT 98
[2023-08-30] MEDS: Topiramate 25 MG TABLET PO ×2 (08:33→20:57)
[2023-08-30 08:38] LABS: Estimated Average Glucose 105 mg/dL; Hemoglobin A1c % 5.3 % (<6.0)
[2023-08-30 08:51] LABS: Cholesterol 160 mg/dL (<200); HDL Cholesterol 32 mg/dL (>40); LDL Cholesterol Calculated 63 mg/dL (<100); Triglycerides 328 mg/dL (<150)
[2023-08-30 09:07] LABS: Free T4 (Free Thyroxine) 0.63 ng/dL (0.71-1.85); Thyroid Stimulating Hormone 1.44 uIU/mL (0.32-4.0)
[2023-08-30 09:20] LABS: Folate 8.8 ng/mL (> or = 4.0); Vitamin B12 289 pg/mL (200-900)
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
[2023-08-30 20:09] VITALS: BP 120/77; PULSE 79; RESP 18; TEMP 36.6; O2SAT 99
[2023-08-30] MEDS: Mirtazapine 30 MG TABLET PO (20:57)
[2023-08-30] MEDS: cloNIDine HCL 0.1 MG TABLET PO (23:05)
[2023-08-31 03:15] VITALS: TEMP 36.5
--- NOTE | 2023-08-31 04:11 | PC.NURSE ---
Venancio was reported to have cold symptoms, cough, congestion, afebrile at 97.7. MD Jane updated. Order for Respiratory panel, flonase and mucinex obtained. No cardiac complaints.
[2023-08-31] MEDS: Lactulose 20 GM/30 ML SOLUTION 30 GM PO ×3 (04:35→17:14)
[2023-08-31 07:00] VITALS: BMI 38.2
[2023-08-31 08:01] VITALS: BP 117/65; PULSE 81; RESP 16; TEMP 36.3; O2SAT 98
[2023-08-31] MEDS: Ibuprofen 800 MG TABLET PO ×2 (08:36→17:07)
[2023-08-31] MEDS: Milk of Magnesia 30 ML ORAL.SUSP PO (08:37)
[2023-08-31] MEDS: Topiramate 25 MG TABLET PO (08:37)
--- NOTE | 2023-08-31 09:13 | HO.PSYCHPN ---
Subjective Subjective Date of Service: 08/31/23 Reason For Visit: SI Subjective Notes: Conditional Voluntary Interim History: Reviewed with . Patient presents irritable today. 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 I'm waiting for my SSI to start. I have to try to start all over again with getting things up and going. I don't want a program that I can't work so I'll stay at a halfway or sleep in my car. I spoke to the dealership about fixing my car. Patient apologized to T/W for raising his voice. Pt denies SI/HI/VH/AH. Medication Compliance: Yes Side effects from medications: No Attending Groups: No Review of Systems Constitutional: Reports as per HPI Eyes: Reports as per HPI Reports as per HPI Cardiovascular: Reports as per HPI Respiratory: Reports as per HPI Gastrointestinal: Reports as per HPI Genitourinary: Reports as per HPI Musculoskeletal: Reports as per HPI Skin/Breast: Reports as per HPI Reports as per HPI Psychiatric: Reports as per HPI Endocrine: Reports as per HPI Hematologic/Lymphatic: Reports as per HPI Allergic/Immunologic: Reports as per HPI Mental Status Exam Mental Status Exam Narrative: Pt is alert and oriented; behavior is cooperative; dressed in casual attire; mood is described as irritable ; eye contact appropriate; Speech is normal rate, volume and prosody and not pressured; thought process is organized and goal directed; Thought content is on tx; otherwise pertinent to relevant topics and without any delusional content, paranoid ideations or grandiosity; denies SI/HI/VH/AH. Diagnostics Vital Signs (24Hr): Vital Signs - 24 hr 08/30/23 20:09 08/31/23 03:15 08/31/23 08:01 Temperature 97.9 F 97.7 F 97.3 F Pulse Rate 79 81 Respiratory Rate 18 16 Blood Pressure 120/77 117/65 Pulse Oximetry 99 98 Oxygen Delivery Method Room Air Room Air BMI result Body Mass Index 38.0 Labs 08/26/23 02:20 08/26/23 02:20 Labs: Laboratory Results - last 48 hr 08/30/23 08:23 Estimat Average Glucose 105 Hemoglobin A1c % 5.3 Triglycerides 328 H Cholesterol 160 LDL Cholesterol, Calc 63 HDL Cholesterol 32 L Vitamin B12 289 Folate 8.8 TSH 1.44 Free T4 0.63 L Medications Medications Current Medications Acetaminophen (Acetaminophen 325 Mg Tablet) 650 mg PO Q6H PRN PRN Reason: Headache/Pain Mild Scale (1-3) Al Hydroxide/Mg Hydroxide (Magnesium Hydrox/Alum Hydrox 30 Ml Oral.Susp) 30 ml PO Q6H PRN PRN Reason: Heartburn/Nausea Clonidine HCl (Clonidine Hcl 0.1 Mg Tablet) 0.1 mg PO BID PRN; Protocol PRN Reason: anxiety Last Admin: 08/30/23 23:05 Dose: 0.1 mg Fluticasone Propionate (Fluticasone Propionate Nasal 16 Gm [place]) 1 spray NOSTRIL-B DAILY [facility] Guaifenesin/Dextromethorphan (Guaifenesin Dm 600/30 1 Tab Tab.Er.12h) 1 tab PO BID PRN PRN Reason: Congestion Last Admin: 08/31/23 08:36 Dose: 1 tab Hydroxyzine HCl (Hydroxyzine Hcl 25 Mg Tablet) 25 mg PO Q6H PRN PRN Reason: Anxiety Last Admin: 08/30/23 23:05 Dose: 25 mg Ibuprofen (Ibuprofen 800 Mg Tablet) 800 mg PO Q8H PRN PRN Reason: Pain, Moderate(Pain Scale 4-6) Last Admin: 08/31/23 08:36 Dose: 800 mg Lactulose (Lactulose 20 Gm/30 Ml Solution) 30 gm PO TID PRN PRN Reason: constipation Last Admin: 08/31/23 04:35 Dose: 30 gm Magnesium Hydroxide (Milk Of Magnesia 30 Ml Oral.Susp) 30 ml PO DAILY PRN PRN Reason: Constipation Last Admin: 08/31/23 08:37 Dose: 30 ml Magnesium Hydroxide (Milk Of Magnesia 30 Ml Oral.Susp) 30 ml PO DAILY PRN PRN Reason: Constipation Mirtazapine (Mirtazapine 30 Mg Tablet) 30 mg PO BEDTIME [facility] Last Admin: 08/30/23 20:57 Dose: 30 mg Nicotine Polacrilex (Nicotine Polacrilex 2 Mg Gum) 4 mg BUCCAL Q2H PRN PRN Reason: Nicotine Cravings Topiramate (Topiramate 25 Mg Tablet) 25 mg PO BID [facility] Last Admin: 08/31/23 08:37 Dose: 25 mg Trazodone HCl (Trazodone Hcl 50 Mg Tablet) 50 mg PO BEDTIME MRX1 PRN PRN Reason: Insomnia Allergies Allergies Allergy/AdvReac Type Severity Reaction Status Date / Time No Known Allergies Allergy Verified 08/26/23 02:11 [No Known Allergies*] Assessment & Plan Assessment & Plan (1) MDD (major depressive disorder), recurrent episode, severe: Status: Acute Code(s): F33.2 - Major depressive disorder, recurrent severe without psychotic features (2) PTSD (post-traumatic stress disorder): Status: Acute Code(s): F43.10 - Post-traumatic stress disorder, unspecified (3) Cocaine abuse: Status: Inactive Code(s): F14.10 - Cocaine abuse, uncomplicated Plan Patient is a 48 year old male with hx of MDD, PTSD and cocaine use d/o who presented to [facility] ER d/t suicidal ideation with plan to jump off bridge secondary to increased life stressors. Plan: CV 15 minute safety checks Continue home medications Possible referral to outpatient program? Discharge planning. 08/31/23: Patient presents irritable today. 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 I'm waiting for my SSI to start. I have to try to start all over again with getting things up and going. I don't want a program that I can't work so I'll stay at a halfway or sleep in my car. I spoke to the dealership about fixing my car. Patient apologized to T/W for raising his voice. Pt denies SI/HI/VH/AH. Patient educated on: diagnosis, medication risk/benefits, substance abuse and therapeutic strategies Informed Consent: understands Reason for continued inpatient stay Substantial Risk for: stable for discharge Time Spent With Patient Time: Total time managing care of this patient today _30___ minutes.
--- NOTE | 2023-08-31 12:02 | MHC.RECOVRN ---
Met with pt on M3 after pt expressed interest in meeting with recovery team to . Pt had presented to the ED for depression and SI with plan to jump off bridge. Pt stated he was just discharged from [facility] from 3 day after transfer from [facility] for intentional overdose on 80 pills. Denied use of substance or alcohol on presentation. Upon evaluation, pt admitted for MDD, PTSD, cocaine use disorder. Pt reports cocaine use prior to going to [facility], 1 gram over 2 days, [place]. Prior to that, pt reports he had been in recovery. Pt reports he had been doing well while at [facility] in [place], was working 2 jobs, had a vehicle, and overall was on a bright trajectory. Pt reports he had to move to a different sober house and while there, stressors increased. Pt reports he did not feel safe while at the [facility], states I was the only [place] there. I know how to defend myself but I shouldn't feel unsafe at my house. Pt reports he was at the [facility] for 4-5 months when recurrence happened. Pt reports he still has his 2 jobs in [place] but his car is broken down in his daughter's driveway. Pt is upset that things were going well and now he does not have a safe place to live where he can continue working. Pt very focused on getting into a program where he can work, is not open to CSS level of care. Attempted to discuss recovery support options, including a motor coach tour operator, however, pt consistently redirected conversation back to housing and ability to work to be able to fix his car. Pt reports having a motor coach tour operator in the past, was not open to a referral at this time. Pt is currently taking topiramate, educated pt on its use for StUD. Pt reports only concern regarding recovery at this time is housing, denies other questions or concerns for t/w. Encouraged pt to continue working with SW to determine aftercare plan. Pt provided with written recovery resources and t/w contact information if needed. Discussed with SW.
[2023-08-31 15:04] LABS: Adenovirus PCR Not Detected (Not Detect.); Bordetella parapertussis PCR Not Detected (Not Detect.); Bordetella pertussis PCR Not Detected (Not Detect.); Chlamydia pneumoniae PCR Not Detected (Not Detect.); Coronavirus 229E PCR Not Detected (Not Detect.); Coronavirus HKU1 PCR Not Detected (Not Detect.); Coronavirus NL63 PCR Not Detected (Not Detect.); Coronavirus OC43 PCR Not Detected (Not Detect.); Human metapneumovirus PCR Not Detected (Not Detect.); Influenza A PCR Not Detected (Not Detect.); Influenza B PCR Not Detected (Not Detect.); Mycoplasma pneumoniae PCR Not Detected (Not Detect.); Parainfluenza 1 PCR Not Detected (Not Detect.); Parainfluenza 2 PCR Not Detected (Not Detect.); Parainfluenza 3 PCR Not Detected (Not Detect.); Parainfluenza 4 PCR Detected (Not Detect.); RSV PCR Not Detected (Not Detect.); Rhino/Enterovirus PCR Not Detected (Not Detect.)
[2023-08-31 15:13] LABS: SARS-CoV-2 PCR Detected (Not Detect.)
[2023-08-31] MEDS: cloNIDine HCL 0.1 MG TABLET PO (17:43)
[2023-08-31 17:46] VITALS: BP 109/59; PULSE 70; RESP 18
[2023-08-31 22:15] VITALS: BP 104/53; PULSE 64; RESP 18; TEMP 36.3; O2SAT 98
[2023-09-01 06:00] VITALS: BP 123/65; PULSE 72; RESP 24; TEMP 36.6; O2SAT 99
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
--- NOTE | 2023-09-01 10:16 | PC.NURSE ---
Addendum entered by Tami Yo RN 09/01/23 11:59: At 11am pt stated he called the senior care and told him he has covid and flu and they said he can't go there. I relayed this info to provider Cadence and AUSTIN Eugene. At 1145 when pt was being discharged he became agitated, yelling and hit the wall x 3 . Security was called for escort off unit. Pt continued to yell that he has nowhere to go and can't go to senior care with flu and covid. Code Assist was called nad pt was escorted off the unit to the main entrance. He refused to leave the premises without a ride. Olivia GEIGER was called. Original Note: Venancio is alert, fully oriented, pleasant and cooperative with care. He denies ideation, plan or intent to harm self or others. He denies ah and vh. He verbalizes understanding of discharge plan including appointments and medications. He reports sore throat, cough and aches which he attributes to flu and covid. In addition he reports no BM x 11 days. He has been taking miralax, lactulose and MOM every day without effect. He declined enema. Provider is aware. Otherwise he denies physical complaint.
== END 2023-09-01 11:50 | disposition home or self-care (01) | DRG 751 ==
LOC: HO.ED 08-28 12:11 → HO.PADLT16 08-29 19:36
PROVIDERS: Emergency Medicine; Social Worker; Admitting Provider Psychiatry & Neurology Psychiatry; Emergency Provider Emergency Medicine; Responsible Provider Registered Nurse; Visit Provider Psychiatry & Neurology Psychiatry
DX: F33.2 Major depressive disorder, recurrent severe without psychotic features (principal); U07.1 COVID-19; R45.851 Suicidal ideations; F14.10 Cocaine abuse, uncomplicated; F43.10 Post-traumatic stress disorder, unspecified; Z23 Encounter for immunization; Z87.891 Personal history of nicotine dependence; Z79.51 Long term (current) use of inhaled steroids; Z79.899 Other long term (current) drug therapy
CPT/HCPCS: 36415; 80053; 80061; 80307; 81001; 82607; 82746; 83036; 84439; 84443; 85025; 87633; 87635; 90686; 93005; 99285; S9485

== ENCOUNTER 2023-08-29 19:28 | Outpatient (BNV) | payer MEDICAID, SELFPAY | END 2023-08-30 08:58 | PROVIDERS: Admitting Provider Psychiatry & Neurology Psychiatry; Emergency Provider Emergency Medicine; Responsible Provider Registered Nurse; Visit Provider Internal Medicine Cardiovascular Disease | DX: I49.8 Other specified cardiac arrhythmias (principal) | CPT/HCPCS: 93010 ==

== ENCOUNTER → 2023-08-29 19:28 | Outpatient (BNV) | payer OTHER, SELFPAY | PROVIDERS: Admitting Provider Psychiatry & Neurology Psychiatry; Emergency Provider Emergency Medicine; Responsible Provider Registered Nurse; Visit Provider Registered Nurse | DX: F33.2 Major depressive disorder, recurrent severe without psychotic features (principal); F14.10 Cocaine abuse, uncomplicated; F43.11 Post-traumatic stress disorder, acute | CPT/HCPCS: 99231; 99233 ==

== ENCOUNTER 2024-06-15 09:45 | Emergency (ER) | payer MEDICAID, SELFPAY ==
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
[2024-06-15 09:52] VITALS: BP 138/88; PULSE 69; RESP 20; TEMP 37.1; O2SAT 98; BMI 37.8
[2024-06-15 10:12] LABS: MANUAL DIFF FLAG NO
[2024-06-15 10:16] LABS: Basophils Absolute Auto 0.1 X10*3/uL (0.0-0.2); Basophils Percent Auto 0.8 % (0-2); Eosinophils Percent Auto 7.9 % (0-4); Hematocrit 47.7 % (42.0-52.0); Hemoglobin 16.1 g/dl (14.0-18.0); Imm Gran Abs Auto 0.12 X10*3/uL (0.00-0.03); Imm Gran Pct Auto 0.9 % (0.0-0.4); Lymphocytes Percent Auto 22.6 % (20-40); Mean Corpuscular HGB Conc 33.8 g/dl (31.0-36.0); Mean Corpuscular Hemoglobin 30.1 pg (27.0-33.0); Mean Corpuscular Volume 89.3 fL (80.0-98.0); Mean Platelet Volume 8.9 fL (9.4-12.4); Monocytes Absolute Auto 1.5 X10*3/uL (0.1-1.2); Monocytes Percent Auto 11.1 % (2-11); Neutrophils Absolute Auto 7.5 x10*3/uL (2.0-8.3); Neutrophils Percent Auto 56.7 % (45-73); Platelet Count 320 X10*3/uL (160-400); Red Blood Count 5.34 X10*6/uL (4.60-5.80); Red Cell Distribution Width 13.9 % (11.0-16.0); White Blood Count 13.2 X10*3/uL (4.8-10.8)
[2024-06-15 10:18] LABS: Appearance Urine Clear; Color Urine Yellow; Glucose Urine UA Negative (Negative); Leukocyte Esterase Urine Negative (Negative); Nitrite Urine Negative (Negative); Specific Gravity - Urine 1.025 (1.005-1.025); Urine Blood Negative (Negative); Urine Ketones Negative (Negative); Urine Protein Negative (Neg-Trace)
[2024-06-15 10:30] LABS: Alanine Aminotransferase 10 U/L (0-40); Albumin Level 3.7 g/dL (3.5-5.0); Alkaline Phosphatase 67 U/L (39-117); Anion Gap 9 (12-20); Aspartate Amino Transferase 10 U/L (5-37); Bilirubin Direct 0.1 mg/dL (0.0-0.5); Bilirubin Total 0.3 mg/dL (0.0-1.0); Blood Urea Nitrogen 14 mg/dL (9-16); Calcium 8.5 mg/dL (8.4-10.2); Carbon Dioxide 29 mmol/L (22-29); Chloride 105 mmol/L (96-108); Creatinine Clr Calc Pharmacy 129.5; Estimated Glomerular Filt Rate > 60; Glucose Random 78 mg/dL (60-115); Lipase 29 U/L (8-78); Potassium 3.4 mmol/L (3.3-5.1); Sodium 140 mmol/L (135-145); Total Protein 7.2 g/dL (6.5-8.0)
[2024-06-15 10:53] LABS: Influenza A PCR NEGATIVE (Negative); Influenza B PCR NEGATIVE (Negative); Resp Syncy Virus RNA Qual PCR NEGATIVE (Negative); SARS COV2 PCR INHOUSE NEGATIVE (Negative)
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
--- NOTE | 2024-06-15 11:23 | ECG_ITS ---
Test Reason : CP Blood Pressure : / mmHG Vent. Rate : 066 BPM Atrial Rate : 066 BPM P-R Int : 160 ms QRS Dur : 088 ms QT Int : 398 ms P-R-T Axes : -14 031 053 degrees QTc Int : 417 ms Normal sinus rhythm Normal ECG When compared with ECG of 30-AUG-2023 09:17, No significant change was found Referred By: Katheryn Fuentes Electronically Signed By:OSCAR CARDENAS
[2024-06-15 12:32] VITALS: BP 129/72; PULSE 66; RESP 14; TEMP 36.6; O2SAT 99
[2024-06-15 12:55] VITALS: BP 129/72; PULSE 66; RESP 14; TEMP 36.6; O2SAT 99
== END 2024-06-15 12:56 | disposition home or self-care (01) ==
PROVIDERS: Emergency Provider Emergency Medicine; PCP Nurse Practitioner Primary Care
DX: J01.90 Acute sinusitis, unspecified (principal); J45.909 Unspecified asthma, uncomplicated; Z03.818 Encounter for observation for suspected exposure to other biological agents ruled out; Z87.891 Personal history of nicotine dependence
CPT/HCPCS: 0241U; 71046; 80048; 80076; 81003; 83690; 85025; 93005; 99283; 99284

== ENCOUNTER → 2024-06-15 11:23 | Outpatient (BNV) | payer MEDICAID, SELFPAY | PROVIDERS: Emergency Provider Emergency Medicine; PCP Nurse Practitioner Primary Care; Visit Provider Internal Medicine | DX: R07.9 Chest pain, unspecified (principal) | CPT/HCPCS: 93010 ==

== ENCOUNTER 2024-10-18 10:22 | Emergency (ER) | payer MEDICAID, SELFPAY ==
[2024-10-18 10:47] VITALS: BP 137/86; PULSE 70; RESP 16; TEMP 37.2; O2SAT 99; BMI 37.6
--- NOTE | 2024-10-18 10:53 | ECG_ITS ---
Test Reason : CHEST PAIN Blood Pressure : */* mmHG Vent. Rate : 68 BPM Atrial Rate : 68 BPM P-R Int : 158 ms QRS Dur : 96 ms QT Int : 392 ms P-R-T Axes : -8 21 47 degrees QTcB Int : 416 ms Normal sinus rhythm Brugada pattern, type 1 Abnormal ECG When compared with ECG of 15-Jun-2024 11:25, No significant change was found Referred By: Tristian Mayer Electronically Signed By: OSCAR CARDENAS
[2024-10-18 11:28] LABS: MANUAL DIFF FLAG NO
[2024-10-18 11:33] LABS: Basophils Absolute Auto 0.1 X10*3/uL (0.0-0.2); Basophils Percent Auto 0.9 % (0-2); Eosinophils Absolute Auto 0.8 X10*3/uL (0.0-0.4); Eosinophils Percent Auto 6.2 % (0-4); Hematocrit 47.2 % (42.0-52.0); Hemoglobin 16.2 g/dl (14.0-18.0); Imm Gran Abs Auto 0.07 X10*3/uL (0.00-0.03); Imm Gran Pct Auto 0.5 % (0.0-0.4); Lymphocytes Percent Auto 22.4 % (20-40); Mean Corpuscular HGB Conc 34.3 g/dl (31.0-36.0); Mean Corpuscular Hemoglobin 29.8 pg (27.0-33.0); Mean Corpuscular Volume 86.8 fL (80.0-98.0); Mean Platelet Volume 9.1 fL (9.4-12.4); Monocytes Absolute Auto 1.5 X10*3/uL (0.1-1.2); Monocytes Percent Auto 10.8 % (2-11); Neutrophils Percent Auto 59.2 % (45-73); Platelet Count 310 X10*3/uL (160-400); Red Blood Count 5.44 X10*6/uL (4.60-5.80); Red Cell Distribution Width 13.6 % (11.0-16.0); White Blood Count 13.5 X10*3/uL (4.8-10.8)
[2024-10-18 11:46] LABS: Alanine Aminotransferase 10 U/L (0-40); Albumin Level 3.9 g/dL (3.5-5.0); Alkaline Phosphatase 62 U/L (39-117); Anion Gap 11 (12-20); Aspartate Amino Transferase 19 U/L (5-37); Bilirubin Total 0.5 mg/dL (0.0-1.0); Blood Urea Nitrogen 10 mg/dL (9-16); Calcium 9.3 mg/dL (8.4-10.2); Carbon Dioxide 24 mmol/L (22-29); Chloride 107 mmol/L (96-108); Creatinine Clr Calc Pharmacy 92.2; Estimated Glomerular Filt Rate > 60; Glucose Random 89 mg/dL (60-115); Potassium 3.6 mmol/L (3.3-5.1); Sodium 138 mmol/L (135-145); Total Protein 7.9 g/dL (6.5-8.0)
[2024-10-18 12:07] LABS: Influenza A PCR NEGATIVE (Negative); Influenza B PCR NEGATIVE (Negative); Resp Syncy Virus RNA Qual PCR POSITIVE (Negative); SARS COV2 PCR INHOUSE NEGATIVE (Negative)
== END 2024-10-18 19:20 | disposition left against medical advice (07) ==
PROVIDERS: Emergency Medicine; Emergency Provider Emergency Medicine; PCP Nurse Practitioner Primary Care
DX: R51.9 Headache, unspecified (principal); R09.89 Other specified symptoms and signs involving the circulatory and respiratory systems; Z03.818 Encounter for observation for suspected exposure to other biological agents ruled out
CPT/HCPCS: 0241U; 80053; 85025; 93005; 99281; 99283

== ENCOUNTER → 2024-10-18 10:53 | Outpatient (BNV) | payer MEDICAID, SELFPAY | PROVIDERS: Emergency Provider Emergency Medicine; PCP Nurse Practitioner Primary Care; Visit Provider Internal Medicine | DX: I49.8 Other specified cardiac arrhythmias (principal) | CPT/HCPCS: 93010 ==

== ENCOUNTER 2024-11-29 09:31 | Outpatient (AMB) | payer MEDICAID, SELFPAY ==
[2024-11-29 09:38] VITALS: BP 122/68; PULSE 78; BMI 39.6
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
--- OUTSIDE RECORDS SUMMARY | 2024-11-29 10:26 | XMS_ITS | Encounter Summary ---
Author Organization [id number] Address [address] [place] [address] Care Team Providers Care Resource Conservation Specialist Name Role Phone Judy Kong Primary Care Provider [phone] Reason for Visit * Reason Onset Date Comments Appointment Request 03/15/2024 Encounter Details Date Type Department Care Team ([facility] st Contact Info) Description 03/15/2024 Telephone [facility] [address] [place] [address] Judy Kong ANP [address] [place] [address] Appointment Request Social History Tobacco Use Types Packs/Day Years Used Date Smoking Tobacco: Former Cigarettes Passive Smoke Exposure: Never Smokeless Tobacco: Former Alcohol Use Standard Drinks/Week Comments Not Currently 0 (1 standard drink = 0.6 oz pur e alcohol) Depression Answer Date Recorded Patient Health Questionnaire-9 Score 18 09/25/2023 Patient Health Questionnaire-9 Score 18 09/25/2023 Last PHQ-9: Questionnaire Data Not on file 0 09/25/2023 Housing Stability Answer Date Recorded What is your housing situation today? I have ruben cai 02/08/[address] you li ve. Do you have problems with any of the following? None of the above 02/08/2024 Food Insecurity Answer Date Recorded Within the past 12 months, y ou worried that your food would run out before you got money to buy more: Never True 02/08/2024 Within the past 12 months,th e food you bought just didn't last and you didn't have enough money to get more: Never True Transportation Answer Date Recorded In the past 12 months, has l ack of transportation kept you from medical appts, meetings, work or from getting things needed for daily living? No 02/08/2024 Utilities Answer Date Recorded In the past 12 months, has t he electric, gas, oil or water company threatened to shut off services in your home? No 02/08/2024 Depression Answer Date Recorded Patient Health Questionnaire-2 Score 6 09/25/2023 Sex and Gender Information Value Date Recorded Sex Assigned at Male 06/27/2022 10:31 AM EDT Legal Sex Male 10:31 AM EDT Gender Identity Male 06/27/2022 10:31 AM EDT Sexual Orientation Straight 06/27/2022 10 :31 AM EDT documented as of this encounter Miscellaneous Notes * Telephone Encounter - Valentín Rivero - 03/15/2024 11:02 AM EDT Tc from patients daughter calling to schedule a PE appt however there is no availability documented in this encounter Plan of Treatment Not on file documented as of this encounter Visit Diagnoses Not on filedocumented in this encounter Additional Health Concerns Assessment Noted Time PHQ-9 Depression Total Score: 18 024 12:29 PM EST documented as of this encounter Care Teams Resource Conservation Specialist Relationship Specialty Start Date End Date Judy Kong ANP [address] [place] [address] PCP - General Family Medicine 02/19/20 documented as of this encounter
--- OUTSIDE RECORDS SUMMARY | 2024-11-29 10:26 | XMS_ITS | Encounter Summary ---
Author Organization [employer] [facility] Address [address] [place] [address] Care Team Providers Care Environmental Construction Engineer Name Role Phone Judy Kong Primary Care Provider [phone] Encounter Details Date Type Department Care Team (Late st Contact Info) Description 08/23/2022 Orders Only [facility] [address] [place] [address] Aisha Casey, RN Social History Tobacco Use Types Packs/Day Years Used Date Smoking Tobacco: Never Assessed Sex and Gender Information Value Date Recorded Sex Assigned at Male 06/27/2022 10:31 AM EDT Legal Sex Male 10:31 AM EDT Gender Identity Male 06/27/2022 10:31 AM EDT Sexual Orientation Straight 06/27/2022 10 :31 AM EDT documented as of this encounter Plan of Treatment Not on file documented as of this encounter Visit Diagnoses Not on filedocumented in this encounter Care Teams Environmental Construction Engineer Relationship Specialty Start Date End Date Judy Kong ANP [address] [place] [address] PCP - General Family Medicine 02/19/20 Laurita Hobbs Putty Mixer And Applier 09/27/23 12/26/23 documented as of this encounter
--- OUTSIDE RECORDS SUMMARY | 2024-11-29 10:26 | XMS_ITS | Encounter Summary ---
Author Organization [employer] Address [address] [facility] [address] [place] [address] Care Team Providers Care Paraplanner Name Role Phone Judy Kong Primary Care Provider [phone] Reason for Visit * Reason Onset Date Comments Error 08/24/2023 Encounter Details Date Type Department Care Team ([facility] st Contact Info) Description 08/24/2023 Telephone [facility] [address] [place] [address] Judy Kong ANP [address] [place] [address] Error Social History Tobacco Use Types Packs/Day Years Used Date Smoking Tobacco: Former Cigarettes Passive Smoke Exposure: Never Smokeless Tobacco: Former Alcohol Use Standard Drinks/Week Comments Not Currently 0 (1 standard drink = 0.6 oz pur e alcohol) PHQ-2 Answer Date Recorded Patient Health Questionnaire-2 Score 0 02/02/2023 Housing Stability Answer Date Recorded What is your housing situation today? I have ruben cai 06/12/[address] you li ve. Do you have problems with any of the following? None of the above 06/12/2023 Food Insecurity Answer Date Recorded Within the past 12 months, y ou worried that your food would run out before you got money to buy more: Never True 06/12/2023 Within the past 12 months,th e food you bought just didn't last and you didn't have enough money to get more: Never True Transportation Answer Date Recorded In the past 12 months, has l ack of transportation kept you from medical appts, meetings, work or from getting things needed for daily living? No 06/12/2023 Utilities Answer Date Recorded In the past 12 months, has t he electric, gas, oil or water company threatened to shut off services in your home? No 06/12/2023 Depression Answer Date Recorded Patient Health Questionnaire-2 Score 0 02/02/2023 Sex and Gender Information Value Date Recorded Sex Assigned at Male 06/27/2022 10:31 AM EDT Legal Sex Male 10:31 AM EDT Gender Identity Male 06/27/2022 10:31 AM EDT Sexual Orientation Straight 06/27/2022 10 :31 AM EDT documented as of this encounter Plan of Treatment Not on file documented as of this encounter Visit Diagnoses Not on filedocumented in this encounter Care Teams Paraplanner Relationship Specialty Start Date End Date Judy Kong ANP [address] [place] [address] PCP - General Family Medicine 02/19/20 Laurita Hobbs Business Management Manager 09/27/23 12/26/23 documented as of this encounter
--- OUTSIDE RECORDS SUMMARY | 2024-11-29 10:26 | XMS_ITS | Clinical Summary ---
Author Organization [employer] Address [address] [facility] [address] [place] [address] Care Team Providers Care Manufacturing Engineer Machining Name Role Phone Judy Kong ANDREA Primary Care Provider [phone] Allergies No known active allergies Medications * This document contains information received from the source organization and may not represent a complete record from that organization. naloxone (Narcan) 4 mg/0.1 mL nasal spray Administer 0.1 mL into affected nostril(s). 1 Active albuterol 108 (90 Base) MCG/ACT inhalerIndicatio ns:Moderate persistent asthma without complication 2 puffs every 4-6 hrs as needed for SOB, wheezing 18 g 3 3 Active Additional Information Patient not taking.Reported on 03/29/2024 Syringe/Needle, Disp, 22G X 1-1/2 3 ML miscIndications: B12 deficiency Use with B12 once weekly for IM admin 4 each 1 3 Active Additional Information Patient not taking.Reported on 03/29/2024 cyanocobalamin (Vitamin B-12) 1000 MCG tablet Take 1,000 mcg by mouth Once per day. 4 Active hydrOXYzine pamoate (Vistaril) 25 MG capsule Take 3 capsules by mouth if needed in the morning, at noon, and at bedtime for anxiety. 4 Active Linzess 145 MCG capsule Take 1 capsule by mouth Once per day. 4 Active mirtazapine (Remeron) 15 MG tablet Take 15 mg by mouth at bedtime. 4 Active venlafaxine XR (Effexor XR) 150 MG 24 hr capsule Take 1 capsule by mouth Once per day. 4 Active Breo Ellipta 100-25 MCG/ACT aerosol powder Inhale 1 puff Once per day. 4 Active Umeclidinium [place] (Incruse Ellipta) 62.5 MCG/ACT aerosol powderIndication s:Chronic obstructive pulmonary disease, unspecified COPD type (CMS/HCC) Inhale 1 Inhalation Once daily. 30 each 2 4 Active ipratropium-albu terol (Duo-Neb) 0.5-2.5 mg/3 mL nebulizer solution Take 3 mL by nebulization Every 4-6 hours as needed for wheezing or shortness of breath. 75 mL 2 4 Active ibuprofen 800 MG tabletIndication s:Pain 1 tablet with food every 8 hours as needed for pain 60 tablet 1 4 Active tiZANidine (Zanaflex) 2 MG tabletIndication s:Pain Take 2 tablets (4 mg) by mouth every 6 (six) hours if needed for muscle spasms for up to 10 days. 30 tablet 4 Active Hospital, Clinic, or Other Facility Administered Medication Ordered Dose Route Frequency Start Date End Date Status cyanocobalamin (Vitamin B-12) injection 1,000 mcgIndications:B12 deficiency 1000 mcg IM Every 7 days 10/11/2022 Active Active Problems Problem Noted Date Diagnosed Date Obesity (BMI 30-39.9) 07/19/2024 History of gastrointestinal obstruction 07/19/20 24 Chronic obstructive pulmonary disease 07/19/2024 Severe episode of recurrent major depressive disorder, without psychotic features 09/25/2023 Assessment & Plan (09/25/2023 12:50 PM EST): PROGRESS NOTE: ID: Venancio is a 48 y.o. Decline to answer straight-identified cis-male (pronouns ) with previous documented hx of Depression, Anxiety, and Substance Use Disorder MH services including OP Psychotherapy psychopharmacology who presents for Depression and Anxiety. Venancio has Hx of trauma since childhood, Hx of multiple SI attempts and hospitalizations that started in childhood, Las episode 08/16/23 at [facility] Psych[facility] Unit, Hx of substance use started at age 21 y/o with cocaine, denies other substances, las episode was 2 weeks ago. Currently living with daughter after he was DC from residential program. During [facility]BH Consult Venancio presenting with depressed mood, loss of interests/pleasure , changes in sleep difficulty falling asleep and difficulty staying asleep , change in appetite or weight overeating, psychomotor retardation, trouble concentrating, thoughts of worthlessness or guilt, fatigue/loss of energy, thoughts of , passive suicidal ideation w/o plan, excessive worry/anxiety, difficulty controlling worry, restless/keyed up/On edge, easily fatigued, difficulty concentrating/Mind going blank , irritability, muscle tension, and sleep disturbance difficulty falling asleep and difficulty staying asleep , and using in larger amounts or for longer than intended, cravings and urges to use, recurrent use resulting in failure to fulfill major obligations at work/home/school , continued use, even when it causes interpersonal problems, giving up/reducing important social, occupational, or recreational activities because of use, continued use despite physical or psychological problem (potentially related or made worse by use) , in regard to Stimulants ; for a period of 18+ mo, for all symptoms in the context of recent relapse, was involuntary DC from a residential program, loss both his job, currently seeking and a bad news that he got about his brother, he didn't want to elaborate. 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 PLAN: (check all that apply) New/Additional Services needed Off-site services for Behavioral Health Integration Plan External OP therapy referral and OP psychiatry Referral Patient Self Plan Patient to utilize skills provided in intervention , Patient [facility] out [facility] as needed, and Patient to reach out to [facility] as needed Severe anxiety 09/25/2023 Proctocolitis 06/15/2023 Overview (06/15/2023): [facility] ED 04/2023 Asthma 02/01/2023 Class 2 obesity 02/01/2023 Heavy alcohol use 02/01/2023 Shortness of breath 10/11/2022 Overview (10/11/2022): PFT 2018: 1. Moderately severe obstructive airway disorder with partial improvement after bronchodilator therapy. 2. These findings are consistent with bronchial asthma. Stress test 11/2020: Exercise stress test using Michael protocol, total of 9 min 40 sec. METS 11.10, TAPHR up to 85 %. Pt tolerated well, reports chest thightness with inspiration immediately after exercise, that resolved in recovery. EKG with no arrhythmias, MILD ST changes seen in leads 2,3, and AVF. Normotensive response to exercise. B12 deficiency 09/13/2022 Elevated blood pressure reading 08/23/2022 Near syncope 08/23/2022 Brugada syndrome 07/25/2022 Overview (10/11/2022): vs pattern. EKG at ED 09/2020 brugada pattern 1 thought possibly to have been transient in context of cocaine use. At risk for suicide 07/08/2022 Substance abuse 03/09/2017 Assessment & Plan (06/12/2023 10:53 AM EDT): Assessment: ?? Patient presents with relapse of cocaine related to increased depressive symptoms. Patient experience SI with plan and no intent on almost a daily basis. Reason for visit was to provide a follow-up after ED visit and provide support. Patient declined services of assistant men's lacrosse coach and/or cocaine group. Patient has therapist and psychiatrist established through [facility]. Patient was provided with [facility] and [facility]IC information. ? At this time Venancio Carlos meets criteria for Visit Diagnoses: Problem List Items Addressed This Visit ? Other ?? Substance abuse ([facility]) ?? At risk for suicide ?? Heavy alcohol use ?? Patient ready to address current needs Patient has therapist and psychiatrist in place ?? Strengths include unable to identify at this time. ?? PLAN: 1. Follow up with [facility]: Not recommended for follow-up 2. Patient goal is to maintain clean 3. Behavioral Recommendations a. Continue attending therapy and psych appointments b. Begin complying with medication c. Utilize [facility] and/or WIC if symptoms worsen d. Reach out to [facility] for support Migraine 03/09/2017 Chronic constipation 03/09/2017 Encounters Date Type Department Care Team Description 11/08/2024 Population Health Risk Score [facility] Department [address] [id number] Provider, Population Health Generic 09/25/2024 Patient Outreach [facility] [address] [place] [phone] Judy Kong ANP Pre-visit Planning (Pre-visit planning - LVM ) from Last 3 Months Immunizations Name Administration Dates Next Due Influenza injectable quadriv alent IIV4 with preservative 07/17/2018 Influenza injectable quadriv alent preservative free 07/08/2022,06/06/2022,05/29/2020,10/16,11/22/2017,05/31/2017 Influenza, IIV3, injectable 07/08/2022, 6 Influenza, seasonal, injecta ble, preservative free 06/28/2024 Moderna Covid-19 Vaccine 12+ 01/01/2021 Pneumococcal Polysaccharide PPSV23 05/29/2020, Tdap 07/17/2018 Social History Tobacco Use Types Packs/Day Years Used Date Smoking Tobacco: Former Cigarettes Passive Smoke Exposure: Never Smokeless Tobacco: Former Tobacco Cessation:Counseling Given: Not Answered Alcohol Use Standard Drinks/Week Comments Not Currently [...] Recorded Patient Health Questionnaire-2 Score 6 09/25/2023 Internet Access Answer Date Recorded Internet Access Q1 Yes 05/27/2024 Internet Access Q2 Not on file 05/27/2024 Sex and Gender Information Value Date Recorded Sex Assigned at Male 06/27/2022 10:31 AM EDT Legal Sex Male 10:31 AM EDT Gender Identity Male 06/27/2022 10:31 AM EDT Sexual Orientation Straight 06/27/2022 10 :31 AM EDT Last Filed Vital Signs Vital Sign Reading Time Taken Comments Blood Pressure 140/95 06/28/2024 2:15 PM EDT Pulse 68 06/28/2024 2:15 PM EDT Temperature 36.7 ??C (98.1 ??F) 06/28/2024 2:15 PM ED T Respiratory Rate 16 06/28/2024 2:15 PM EDT Oxygen Saturation 98% 06/28/2024 2:15 PM EDT Inhaled Oxygen Concentration - - Weight 112 kg (246 lb 6.4 oz) 06/28/2024 2:15 PM EDT Height 172.7 cm (5' 8 ) 06/28/2024 2:15 PM EDT Body Mass Index 37.46 06/28/2024 2:15 PM EDT Plan of Treatment Health Maintenance Due Date Last Done Comments CT Colonography 1976 Colonoscopy 1976 Colorectal Cancer Screening 1976 FIT DNA/Cologuard 1976 FIT 1976 FOBT 1976 HIV Screening 1976 Lipid Panel 1976 Sigmoidoscopy 1976 Alcohol/Substance Use Screening 1988 Family Planning (PISQ) 1991 Hepatitis C Screening 1994 Hepatitis B Vaccines (1 of 3 - 19+ 3-dose series) 1995 Pneumococcal Vaccine: Pediatrics (0 to 5 Years) and At-Risk Patients (6 to 49) Years) (2 of 2 - PCV) 05/29/2021 05/29/2020, 08/16/2006 Depression Monitoring (PHQ-9) 03/25/2024 09/25/2023, 09/25/2023 COVID-19 Vaccine (3 - season) 2024 09/30/2022, 01/01/2021 Depression Screening 09/25/2024 09/25/2023, 09/25/19 24 SDOH Screening 02/07/2025 02/08/2024 Tobacco Screening 06/28/2025 06/28/2024 Zoster Vaccines (1 of 2) 2026 DTaP/Tdap/Td Vaccines (2 - Td or Tdap) 07/17/2028 07/17/2018 RSV Patients and Patients Aged 60 years or older (1 - 1-dose 75+ series) 2051 Influenza Vaccine Completed 06/28/2024, , 08/29/2023, Additional history exists HIB Vaccines Aged Out [...] patient's age to complete this topic Meningococcal Vaccine Aged Out No lulu melanie eligible based on patient's age to complete this topic RSV under 20 months Aged Out No longe r eligible based on patient's age to complete this topic Rotavirus Vaccines Aged Out No longer eligible based on patient's age to complete this topic Procedures Procedure Name Priority Date/Time Associated Diagnosis Comments COMPREHENSIVE METABOLIC PANEL Routine 10/18/2024 11:14 AM EST CBC WITH AUTO DIFFERENTIAL Routine 10/18/2024 11:14 AM EST SARS COV2/INFLUENZA A/B AND RSV RNA QL NAAT Routine 10/18/2024 11:14 AM EST from Last 3 Months Results * (ABNORMAL) SARS-CoV-2 RNA, Influenza A/B, and RSV RNA, Ql NAAT (10/18/2024 11:14 AM EST) Influenza A PCR NEGATIVE Negative [facility] Influenza B PCR NEGATIVE Negative [facility] Resp Syncy Virus RNA Qual PCR POSITIVE(A) Negative [facility] SARS COV2 PCR NEGATIVE Negative [facility] Comment:All test results mus t be correlated with clinical findings.Negative results do not preclude SARS-CoV2, influenza Avirus, influenza B virus and/or RSV infectionand should not be used as the sole basis for treatment orother patient management decisions. Negative results must becombined with clinical observations, patient history, andepidemiological information.This test has not been evaluated for monitoring treatment ofinfection.This test has been authorized by the FDA under an EmergencyUse Authorization (EUA) for use by authorized laboratories.Testing performed on the [employer] GeneXpert utilizingreal-time RT-PCR.All SARS CoV2 and positive influenza A/B results arereported to [facility]. 10/18/2024 11:1 4 AM EST 10/18/2024 11:27 AM EST us Generic External Data Provider LAB MICROBIOLOGY - GENERAL ORDERABLES Final Result [facility] [address] [place] [phone] * (ABNORMAL) CBC auto differential (10/18/2024 11:14 AM EST) White Blood Count 13.5(H) 4.8 - 10.8 X10*3/uL [facility] Red Blood Count 5.44 4.60 - 5.80 X10*6/uL [facility] Hemoglobin 16.2 14.0 - 18.0 g/dl [facility] Hematocrit 47.2 42.0 - 52.0 % [facility] Mean Corpuscular Volume 86.8 80.0 - 98.0 fL [facility] Mean Corpuscular Hemoglobin 29.8 27.0 - 33.0 pg [facility] Mean Corpuscular HGB Conc 34.3 31.0 - 36.0 g/dl [facility] Red Cell Distribution Width 13.6 11.0 - 16.0 % [facility] Platelet Count 310 160 - 400 X10*3/uL [facility] Mean Platelet Volume 9.1(L) 9.4 - 12.4 fL [facility] Neutrophils Percent Auto 59.2 45 - 73 % [facility] Imm Gran Pct Auto 0.5(H) 0.0 - 0.4 % [facility] Lymphocytes Percent Auto 22.4 20 - 40 % [facility] Monocytes Percent Auto 10.8 2 - 11 % [facility] Eosinophils Percent Auto 6.2(H) 0 - 4 % [facility] Basophils Percent Auto 0.9 0 - 2 % [facility] NRBC Pct Auto 0.0 0.0 - 0.2 /100WBC [facility] Neutrophils Absolute Auto 8.0 2.0 - 8.3 x10*3/uL [facility] Imm Gran Abs Auto 0.07(H) 0.00 - 0.03 X10*3/uL [facility] Lymphocytes Absolute Auto 3.0 1.2 - 4.9 X10*3/uL [facility] Monocytes Absolute Auto 1.5(H) 0.1 - 1.2 X10*3/uL [facility] Eosinophils Absolute Auto 0.8(H) 0.0 - 0.4 X10*3/uL [facility] Basophils Absolute Auto 0.1 0.0 - 0.2 X10*3/uL [facility] NRBC Abs Auto 0.000 0.0 - 0.012 X10*3/uL [facility] 10/18/2024 11:1 4 AM EST 10/18/2024 11:27 AM EST us Generic External Data Provider LAB BLOOD ORDERAB LES Final Result [facility] [address] [place] [phone] * (ABNORMAL) Comprehensive Metabolic Panel (10/18/2024 11:14 AM EST) Sodium 138 135 - 145 mmol/L [facility] Potassium 3.6 3.3 - 5.1 mmol/L [facility] Chloride 107 96 - 108 mmol/L [facility] Carbon Dioxide 24 22 - 29 mmol/L [facility] Anion Gap 11(L) 12 - 20 [facility] Urea Nitrogen (BUN) 10 9 - 16 mg/dL [facility] Creatinine, Serum 1.19 0.5 - 1.4 mg/dL [facility] Creatinine Clr Calc Pharmacy 92.2 [facility] Comment:eGFR (calculated fro m the MDRD study equation) and eCrCl(calculated from the Cockcroft-Gault equation) are based ondifferent parameters and may not yield comparable results.If eCrCl result is absurd, please check patient'sheight/weight. Estimated Glomerular Filt Rate >60 [facility] Comment:Chronic Kidney Disea se: Estimated GFR < 60 mL/min/[id number] Kidney Disease: Estimated GFR < 15 mL/min/1.73m2 Glucose 89 60 - 115 mg/dL [facility] Calcium 9.3 8.4 - 10.2 mg/dL [facility] Bilirubin, Total 0.5 0.0 - 1.0 mg/dL [facility] Aspartate Amino Transferase 19 5 - 37 U/L [facility] Alanine Aminotransferase 10 0 - 40 U/L [facility] Total Protein 7.9 6.5 - 8.0 g/dL [facility] Albumin Level 3.9 3.5 - 5.0 g/dL [facility] Alkaline Phosphatase 62 39 - 117 U/L [facility] 10/18/2024 11:1 4 AM EST 10/18/2024 11:27 AM EST us Generic External Data Provider LAB BLOOD ORDERAB LES Final Result [facility] [address] [place] [phone] from Last 3 Months Insurance [facility] C[facility] Care Teams Manufacturing Engineer Machining Relationship Specialty Start Date End Date Judy Kong ANP [address] [place] [phone] PCP - General Family Medicine 02/19/20
== END 2024-11-29 10:10 | disposition home or self-care (01) ==
LOC: HO.HCS 09:32
PROVIDERS: PCP Nurse Practitioner Primary Care; Visit Provider Nurse Practitioner Family
DX: I49.8 Other specified cardiac arrhythmias (principal); R42 Dizziness and giddiness
CPT/HCPCS: 99214

== ENCOUNTER → 2024-11-29 09:31 | Outpatient (BNVA) | payer MEDICAID, SELFPAY | PROVIDERS: PCP Nurse Practitioner Primary Care; Visit Provider Nurse Practitioner Family | DX: I49.8 Other specified cardiac arrhythmias (principal); R42 Dizziness and giddiness | CPT/HCPCS: 99212 ==